=== PATIENT | male | born 1960 | race Caucasian/White ===

== ENCOUNTER 2020-11-28 16:12 | Inpatient (IN) | payer BC ==
[2020-11-28] MEDS ORDERED: LORazepam 1 MG Tab PO ONE (16:40)
[2020-11-28] MEDS ORDERED: Ondansetron 4 MG/2 ML SDV IV PRN (16:55)
[2020-11-28] MEDS ORDERED: Polyethylene Glycol 3350 Powder 17 GM Packet PO PRN (16:55)
[2020-11-28] MEDS ORDERED: Acetaminophen 325 MG Tab PO PRN (16:55)
[2020-11-28] MEDS ORDERED: LORazepam 1 MG Tab PO PRN (17:05)
[2020-11-28] MEDS ORDERED: LORazepam 2 MG/ML SDV IVPUSH PRN (17:06)
--- NOTE | 2020-11-28 17:07 | PCM.HP.2 ---
H&P History of Present Illness - General Date of Service: 11/28/20 Admit Problem/Dx: Admission Diagnosis/Problem Admission Diagnosis/Problem Hypoxia - History of Present Illness Initial Comments - Free Text/Narative: 60-year-old male air transferred from [facility] secondary to worsening hypoxia due to COVID-19 pneumonia. We have minimal documentation available to us at this time. Transferring provider is Donnie Soto PA-C. Date of admission to [facility] November 21, 2020. Patient states he for started getting fatigued and short of breath at the end of October. He was seen on approximately November 17 at the [facility] emergency department and given Regeneron. Patient continued to worsen and was admitted on 21 November. There he was started on remdesivir, dexamethasone, and and azithromycin. He has a history of mild to moderate asthma controlled on Advair. Over the last few days patient has had worsening oxygen saturations. [facility] does not have high flow or BiPAP available to them. Last night he was on a nonrebreather with nasal cannula and oxygen saturations were in the upper seventies to low eighties. This morning saturations were in the low to mid eighties and arrangement was made to transfer the patient to us. I do not have a D-dimer available nor as C-reactive protein. Review of CBC and BMP shows no significant positives. During air transport patient was placed on BiPAP. When he arrived to our facility did not tolerate BiPAP initially was switched to high flow nasal cannula at 60 L and 95% FiO2. Oxygen saturations were in the low nineties to upper eighties. He did state he was feeling much better on high flow. Chest Pain Score (Numeric/FACES): 4 Generalized Pain Score (Numeric/FACES): 5 - Related Data Allergies/Adverse Reactions: Allergies Allergy/AdvReac Type Severity Reaction Status Date / Time No Known Allergies Allergy Verified 11/05/14 22:15 CDT Home Medications: Home Meds . [No Known Home Meds] 11/05/14 [History] Past Medical History Other Gastrointestinal History: heartburn Social & Family History - Tobacco Use Tobacco Use Status *Q: Former Tobacco User Used Tobacco, but Quit: Yes Month/Year Tobacco Last Used: - Caffeine Use Caffeine Use: Reports: None - Recreational Drug Use Recreational Drug Use: No H&P Review of Systems - Review of Systems: Review Of Systems: Comprehensive ROS is negative, except as noted in HPI. Exam - Exam Exam: See Below - Vital Signs Vital Signs: Last Vital Signs Temp 98.0 F 11/28/20 16:23 Pulse 73 11/28/20 16:23 Resp 21 H 11/28/20 16:23 BP 108/76 11/28/20 16:23 Pulse Ox 88 L 11/28/20 16:38 Weight: 178 lb 6.4 oz - Exam Quality Assessment: Supplemental Oxygen (High flow nasal cannula) General: Alert, Oriented, 4 HEENT: Conjunctiva Clear, EACs Clear, Hearing Intact, Mucosa Moist & [place] Neck: Supple, Trachea Midline, 2 Lungs: Crackles (Mid to lower lung tilley bilaterally). No: Normal Respiratory Effort (Increased respiratory rate and effort) Cardiovascular: Regular Rate, Regular Rhythm, Normal S1, Normal S2. No: Systolic Murmur GI/Abdominal Exam: Normal Bowel Sounds, Soft, Non-Tender, No Organomegaly, No Distention, No Abnormal Bruit, No Mass Back Exam: Normal Inspection Extremities: Normal Inspection, Normal Range of Motion, Non-Tender, No Pedal Edema, Normal Capillary Refill Peripheral Pulses: 2+: Posterior Tibial (L), Posterior Tibial (R), Dorsalis Pedis (L), Dorsalis Pedis (R) Skin: Warm, Dry, Intact Neuro Extensive - Mental Status: Alert, Oriented x3, Normal Mood/Affect, Normal Cognition, Memory Intact Neuro Extensive - Motor, Sensory, Reflexes: CN II-XII Intact Psychiatric: Alert, Normal Affect, Normal Mood - Patient Data Result Diagrams: 11/29/20 03:37 11/29/20 03:37 Sepsis Event Note - Evaluation Sepsis Screening Result: No Definite Risk - Focused Exam Vital Signs: Vital Signs Temp Pulse Resp BP Pulse Ox Pulse Ox 11/28/20 16:38 88 L 11/28/20 16:23 98.0 F 73 21 H 108/76 90 L - Problem List (1) Pneumonia due to COVID-19 virus SNOMED Code(s): 066813509724346509 ICD Code: U07.1 - COVID-19; J12.82 - PNEUMONIA DUE TO CORONAVIRUS DISEASE 2019 Status: Acute Current Visit: Yes (2) Respiratory failure with hypoxia SNOMED Code(s): 52904065364099620 ICD Code: J96.91 - RESPIRATORY FAILURE, UNSPECIFIED WITH HYPOXIA Status: Acute Current Visit: Yes (3) Asthma SNOMED Code(s): 321144557 ICD Code: J45.909 - UNSPECIFIED ASTHMA, UNCOMPLICATED Status: Acute Current Visit: Yes Problem List Initiated/Reviewed/Updated: Yes Orders Last 24hrs: Active Orders 24 hr Category Date Time Status Patient Status [ADT] Routine ADT 11/28/20 16:55 Ordered Bedrest Bedside Commode [RC] ASDIRECTED Care 11/28/20 16:55 Ordered Cardiac Monitoring [RC] . DIRECTED Care 11/28/20 16:55 Ordered Cardiac Monitoring [RC] CONTINUOUS Care 11/28/20 16:58 Ordered Nurse Communication: Isolation [RC] ASDIRECTED Care 11/28/20 16:57 Ordered Oxygen Therapy [RC] PRN Care 11/28/20 16:55 Ordered Positioning, Patient [RC] ASDIRECTED Care 11/28/20 17:00 Ordered Pulse Oximetry [RC] CONTINUOUS Care 11/28/20 16:58 Ordered RT Aerosol Therapy [RC] ASDIRECTED Care 11/28/20 17:02 Ordered RT Incentive Spirometry [RC] ASDIRECTED Care 11/28/20 16:55 Ordered RT Post Treatment Assessment [RC] Click to Edit Care 11/28/20 17:02 Ordered RT Pre-Treatment Assessment [RC] Click to Edit Care 11/28/20 17:02 Ordered VTE/DVT Education [RC] PER UNIT ROUTINE Care 11/28/20 16:55 Ordered Vital Signs [RC] Q4H Care 11/28/20 16:55 Ordered Respiratory Care Assess and Treatment [CONS] Routine Cons 11/28/20 16:55 Ordered Regular Diet [DIET] Diet 11/28/20 Dinner Ordered Chest 1V Frontal [CR] Stat Exams 11/28/20 17:01 Ordered C-REACTIVE PROTEIN [CHEM] AM Lab 11/29/20 05:11 Ordered C-REACTIVE PROTEIN [CHEM] AM Lab 11/30/20 05:11 Ordered C-REACTIVE PROTEIN [CHEM] AM Lab 12/01/20 05:11 Ordered C-REACTIVE PROTEIN [CHEM] AM Lab 12/02/20 05:11 Ordered C-REACTIVE PROTEIN [CHEM] Stat Lab 11/28/20 16:55 Ordered CBC WITH AUTO DIFF [HEME] AM Lab 11/29/20 05:11 Ordered CBC WITH AUTO DIFF [HEME] AM Lab 11/30/20 05:11 Ordered CBC WITH AUTO DIFF [HEME] AM Lab 12/01/20 05:11 Ordered CBC WITH AUTO DIFF [HEME] AM Lab 12/02/20 05:11 Ordered CBC WITH AUTO DIFF [HEME] Stat Lab 11/28/20 17:00 Ordered CMP [COMPREHENSIVE METABOLIC PN,CMP] [CHEM] AM Lab 11/29/20 05:11 Ordered CMP [COMPREHENSIVE METABOLIC PN,CMP] [CHEM] AM Lab 11/30/20 05:11 Ordered CMP [COMPREHENSIVE METABOLIC PN,CMP] [CHEM] AM Lab 12/01/20 05:11 Ordered CMP [COMPREHENSIVE METABOLIC PN,CMP] [CHEM] AM Lab 12/02/20 05:11 Ordered D-DIMER QUANTITATIVE [COAG] Stat Lab 11/28/20 16:55 Ordered FERRITIN [CHEM] Routine Lab 11/28/20 16:55 Ordered INR,PT,PROTHROMBIN TIME [COAG] Routine Lab 11/28/20 17:01 Ordered LACTIC ACID [CHEM] Stat Lab 11/28/20 16:55 Ordered MAGNESIUM [CHEM] AM Lab 11/29/20 05:11 Ordered MAGNESIUM [CHEM] AM Lab 11/30/20 05:11 Ordered MAGNESIUM [CHEM] AM Lab 12/01/20 05:11 Ordered MAGNESIUM [CHEM] AM Lab 12/02/20 05:11 Ordered PHOSPHORUS [CHEM] AM Lab 11/29/20 05:11 Ordered PHOSPHORUS [CHEM] AM Lab 11/30/20 05:11 Ordered PHOSPHORUS [CHEM] AM Lab 12/01/20 05:11 Ordered PHOSPHORUS [CHEM] AM Lab 12/02/20 05:11 Ordered PROCALCITONIN [REF] Stat Lab 11/28/20 16:55 Ordered PTT,PARTIAL THROMBOPLSTIN TIME [COAG] Routine Lab 11/28/20 16:55 Ordered Acetaminophen [TylenoL] Med 11/28/20 16:55 Ordered 650 mg PO Q4H PRN Albuterol [Proventil HFA] Med 11/28/20 17:01 Ordered See Dose Instructions INH Q2H PRN Albuterol/Ipratropium [DuoNeb 3.0-0.5 MG/3 ML] Med 11/28/20 16:55 Ordered 3 ml NEB Q4H PRN Enoxaparin [Lovenox] Med 11/29/20 09:00 Ordered 40 mg SUBCUT DAILY LORazepam [Ativan] Med 11/28/20 17:06 Ordered 1 mg IVPUSH Q2H PRN LORazepam [Ativan] Med 11/28/20 17:05 Ordered 1 mg PO Q4H PRN Ondansetron [Zofran] Med 11/28/20 16:55 Ordered 4 mg IV Q6H PRN dexAMETHasone Med 11/29/20 09:00 Ordered 6 mg PO DAILY polyethylene glycoL 3350 [MiraLAX] Med 11/28/20 16:55 Ordered 17 gm PO DAILY PRN Isolation [COMM] Stat Oth 11/28/20 16:55 Ordered RT Acapella [RESPCARE] Routine Oth 11/28/20 16:55 Ordered Resuscitation Status Routine Resus Stat 11/28/20 16:55 Ordered Medication Orders Acetaminophen (Acetaminophen 325 Mg Tab) 650 mg PO Q4H PRN PRN Reason: Pain (Mild 1-3)/fever Albuterol (Albuterol 6.7 Gm Inhaler) 0 gm INH Q2H PRN PRN Reason: Shortness of Breath Albuterol/Ipratropium (Albuterol/Ipratropium 3.0-0.5 Mg/3 Ml Neb Soln) 3 ml NEB Q4H PRN PRN Reason: Shortness Of Breath/wheezing Dexamethasone (Dexamethasone 4 Mg Tab) 6 mg PO DAILY DADA Stop: 12/02/20 09:01 Enoxaparin Sodium (Enoxaparin 40 Mg/0.4 Ml Syringe) 40 mg SUBCUT DAILY DADA Lorazepam (Lorazepam 1 Mg Tab) 1 mg PO Q4H PRN PRN Reason: Anxiety Ondansetron HCl (Ondansetron 4 Mg/2 Ml Sdv) 4 mg IV Q6H PRN PRN Reason: Nausea/Vomiting Polyethylene Glycol (Polyethylene Glycol 3350 Powder 17 Gm Packet) 17 gm PO DAILY PRN PRN Reason: Constipation Assessment/Plan Comment:: 60-year-old male with history of asthma transferred from [facility] with COVID-19 pneumonia and hypoxia COVID-19 pneumonia Respiratory failure * Admitted to [facility] on November 21, 2020 * Received Regeneron on or around November 17, 2020 * Worsening condition oxygenation over the last few days increasing need for high flow nasal cannula/noninvasive ventilation * Uses albuterol and Advair for asthma generally in the fall harvesting season * Has received 6 days of remdesivir and dexamethasone * Has not received Actemra or baricitinib * Current blood work pending Plan * Admit to ICU with strict isolation * FiO2 to keep SPO2 between 86 to 94%. Wean as tolerated. Currently on high flow nasal cannula 60 L and 95% FiO2 * Stop remdesivir since there is very little benefit after 5 days * Continue dexamethasone 6 mg p.o. for total of 10 days * Counseled the patient regards to Actemra and gave him the EUA handout. He will consider this overnight. * Get CBC, CMP, mag, Phos, CRP, D-dimer, procalcitonin, blood cultures, lactic acid * Chest x-ray * DuoNeb every 2 hours as needed * Albuterol MDI 2 every 2 hours as needed * I-S and Acapella * DC azithromycin * Pepcid 20 mg twice daily * Monitor daily labs * VTE prophylaxis with Lovenox * CODE STATUS: Full code 11/28/2020 2100 hrs. Elevated D-dimer was called to me and a CT angiogram was ordered. CT angiogram did show scattered subsegmental pulmonary emboli within the left lower lung. Small bilateral pleural effusions with diffuse increased density throughout both sides of the chest. Also, lactic acid returned elevated from the 1730 hrs. draw at 2.7 and repeat at 2032 was elevated at 3.0. Initially elevation in lactic acid was felt to be secondary to hypoxemia causing endorgan lactic acidosis. Also, a fluid bolus of 250 mL/h x 2 was started then LR ran at 125 mL/h until lactic acid was less than 2.0. Lactic acid 0 337 on 11/29/2020 was 1.1. Also of note, albumin was 1.7 on admission which places him at high risk of a poor outcome. - Mortality Measure Prognosis:: Good
--- NOTE | 2020-11-28 18:07 | CR ---
Chest: Portable view of the chest was obtained. Comparison: No prior chest imaging is available. Heart size and mediastinum are within normal limits for portable technique. Diffuse increased density is seen throughout both sides of the chest. No discrete pleural effusions are seen. Bony structures show nothing acute. Impression: 1. Diffuse increased density throughout both sides of the chest. Please correlate if patient has any symptoms to suggest prominent Covid pneumonia. If Covid test is negative, differential is otherwise fairly extensive. Diagnostic code #3
[2020-11-28] MEDS ORDERED: Lactated Ringers 500 ML IV ONE (18:36)
[2020-11-28] MEDS ORDERED: Iopamidol 755 Mg/ML 100 ML Bottle IVPUSH ONE (20:01)
--- NOTE | 2020-11-28 20:13 | CT ---
CT chest Technique: Multiple axial sections through the chest were obtained. Intravenous contrast was utilized. Study has been performed as a pulmonary angiogram protocol. Comparison: Prior chest x-ray performed earlier on the same day (5:16 PM). Findings: Filling defects are seen within the subsegmental branches within the left lower lung compatible with pulmonary emboli. No additional pulmonary emboli are seen. Small bilateral pleural effusions are noted. Thoracic aorta shows mild ectasia of the ascending aorta. Scattered lymph nodes are seen within the mediastinum which are felt to be within normal limits. No axillary adenopathy is seen. Lung window settings show diffuse increased density throughout both sides of the chest which includes areas of consolidation as well as diffuse groundglass appearance. Bone window settings were reviewed which show mild degenerative change within the thoracic spine. No acute osseous abnormality is seen. Impression: 1. Scattered subsegmental pulmonary emboli within the left lower lung. 2. Small bilateral pleural effusions with diffuse increased density throughout both sides of the chest. 3. Other findings believed to be nonacute as described above. Diagnostic code #3
[2020-11-28] MEDS ORDERED: Sodium Chloride 0.9% 100 ML IV SCH (20:15)
[2020-11-28] MEDS: Famotidine 20 MG Tab PO SCH (20:29)
[2020-11-28] MEDS ORDERED: Piperacillin/Tazobactam 4.5 GM in Sodium Chloride 0.9% 100 ML IV ONE (21:12)
[2020-11-28] MEDS ORDERED: Lactated Ringers 1,000 ML IV SCH (21:15)
[2020-11-28] MEDS: Albuterol/Ipratropium 3.0-0.5 MG/3 ML Neb Soln NEB PRN (21:22)
[2020-11-28] MEDS: Enoxaparin 80 MG/0.8 ML Syringe SUBCUT SCH (21:42)
[2020-11-28] MEDS: Benzonatate 100 MG Cap PO PRN (21:55)
[2020-11-28] MEDS: Acetaminophen/Codeine 300-30 MG Tab PO PRN (23:26)
[2020-11-29] MEDS: Piperacillin/Tazobactam 4.5 GM in Sodium Chloride 0.9% 100 ML IV SCH ×3 (05:15→21:39)
[2020-11-29] MEDS: Albuterol 6.7 GM Inhaler INH PRN ×2 (07:55→15:56)
[2020-11-29] MEDS: Dexamethasone 4 MG Tab PO SCH (08:16)
[2020-11-29] MEDS: Famotidine 20 MG Tab PO SCH ×2 (08:16→20:22)
[2020-11-29] MEDS: Acetaminophen/Codeine 300-30 MG Tab PO PRN ×2 (08:34→12:30)
[2020-11-29] MEDS: Enoxaparin 80 MG/0.8 ML Syringe SUBCUT SCH ×3 (08:34→21:39)
[2020-11-29] MEDS ORDERED: Enoxaparin 40 MG/0.4 ML Syringe SUBCUT SCH (09:00)
[2020-11-29] MEDS ORDERED: SODIUM CHLORIDE 0.9% IV ONE (09:00)
[2020-11-29] MEDS ORDERED: TOCILIZUMAB IV ONE (09:00)
[2020-11-29] MEDS: Acetylcysteine 20% 200 MG/ML 4 ML Nebulizer Soln SDV NEB PRN (13:03)
--- NOTE | 2020-11-29 13:23 | PCM.PN ---
- General Info Date of Service: 11/29/20 Admission Dx/Problem (Free Text): Admission Diagnosis/Problem Admission Diagnosis/Problem Hypoxia Subjective Update: 60-year-old male, nonvaccinated, transferred from [facility] with COVID-19 pneumonia. D-dimer above [address] angiogram of the chest. CT angiogram of the chest showed scattered subsegmental pulmonary emboli within the left lower lung. Also, small bilateral pleural effusions with diffuse increased density throughout both sides of the chest. Patient failed high flow nasal cannula this morning and was started on BiPAP 18/12 at 100%. Slowly this did increase his oxygen saturations from the 70s back into the low 90s. I discussed with him and his daughter with his present on the phone the severity of his illness. They understand that he has a very high risk of being intubated. Functional Status: Reports: Pain Controlled - Review of Systems General: Reports: Fatigue Pulmonary: Reports: Shortness of Breath, Cough Cardiovascular: Reports: No Symptoms Gastrointestinal: Reports: No Symptoms - Patient Data Vitals - Most Recent: Last Vital Signs Temp 96.9 F 11/29/20 12:00 Pulse 53 L 11/29/20 12:00 Resp 20 11/29/20 12:00 BP 111/71 11/29/20 12:00 Pulse Ox 96 11/29/20 13:04 Weight - Most Recent: 171 lb 6.4 oz I&O - Last 24 Hours: Intake & Output 11/28/20 11/29/20 11/29/20 22:59 06:59 14:59 Intake Total 2020 1432 Output Total 1175 1250 900 Balance 845 182 -900 Lab Results Last 24 Hours: Laboratory Results - last 24 hr 11/28/20 11/28/20 11/28/20 Range/Units 17:30 17:30 17:30 WBC (4.23-9.07) K/mm3 RBC (4.63-6.08) M/mm3 Hgb (13.7-17.5) gm/dl Hct (40.1-51.0) % MCV (79.0-92.2) fl MCH (25.7-32.2) pg MCHC (32.2-35.5) g/dl RDW Std Deviation (35.1-43.9) fL Plt Count (163-337) K/mm3 MPV (9.4-12.3) fl Neut % (Auto) (34.0-67.9) % Lymph % (Auto) (21.8-53.1) % [place] % (Auto) (5.3-12.2) % Eos % (Auto) (0.8-7.0) Baso % (Auto) (0.1-1.2) % Neut # (Auto) (1.78-5.38) K/mm3 Lymph # (Auto) (1.32-3.57) K/mm3 [place] # (Auto) (0.30-0.82) K/mm3 Eos # (Auto) (0.04-0.54) K/mm3 Baso # (Auto) (0.01-0.08) K/mm3 Manual Slide Review PT (9.7-12.0) SECONDS INR APTT (21.7-31.4) SECONDS D-Dimer, Quantitative 8.41 H (0.19-0.50) mg/L Sodium (136-145) mEq/L Potassium (3.5-5.1) mEq/L Chloride (98-107) mEq/L Carbon Dioxide (21-32) mEq/L Anion Gap (5-15) BUN (7-18) mg/dL Creatinine (0.7-1.3) mg/dL Est Cr Clr Drug Dosing mL/min Estimated GFR (MDRD) (>60) mL/min BUN/Creatinine Ratio (14-18) Glucose (70-99) mg/dL Lactic Acid 2.7 H* (0.4-2.0) mmol/L Calcium (8.5-10.1) mg/dL Phosphorus (2.6-4.7) mg/dL Magnesium (1.8-2.4) mg/dL Ferritin 2439 H (26-388) ng/ml Total Bilirubin (0.2-1.0) mg/dL AST (15-37) U/L ALT (16-63) U/L Alkaline Phosphatase (46-116) U/L C-Reactive Protein (<1.0) mg/dL NT-Pro-B Natriuret Pep (0-125) pg/mL Total Protein (6.4-8.2) g/dl Albumin (3.4-5.0) g/dl Globulin gm/dL Albumin/Globulin Ratio (1-2) Procalcitonin ng/mL 11/28/20 11/28/20 11/28/20 Range/Units 17:30 17:30 17:30 WBC 14.26 H (4.23-9.07) K/mm3 RBC 4.35 L (4.63-6.08) M/mm3 Hgb 13.3 L (13.7-17.5) gm/dl Hct 40.0 L (40.1-51.0) % MCV 92.0 (79.0-92.2) fl MCH 30.6 (25.7-32.2) pg MCHC 33.3 (32.2-35.5) g/dl RDW Std Deviation 42.3 (35.1-43.9) fL Plt Count 272 (163-337) K/mm3 MPV 10.3 (9.4-12.3) fl Neut % (Auto) 92.4 H (34.0-67.9) % Lymph % (Auto) 3.2 L (21.8-53.1) % [place] % (Auto) 3.6 L (5.3-12.2) % Eos % (Auto) 0 L (0.8-7.0) Baso % (Auto) 0.1 (0.1-1.2) % Neut # (Auto) 13.17 H (1.78-5.38) K/mm3 Lymph # (Auto) 0.45 L (1.32-3.57) K/mm3 [place] # (Auto) 0.52 (0.30-0.82) K/mm3 Eos # (Auto) 0.00 L (0.04-0.54) K/mm3 Baso # (Auto) 0.02 (0.01-0.08) K/mm3 Manual Slide Review Abnormal smear PT (9.7-12.0) SECONDS INR APTT (21.7-31.4) SECONDS D-Dimer, Quantitative (0.19-0.50) mg/L Sodium (136-145) mEq/L Potassium (3.5-5.1) mEq/L Chloride (98-107) mEq/L Carbon Dioxide (21-32) mEq/L Anion Gap (5-15) BUN (7-18) mg/dL Creatinine (0.7-1.3) mg/dL Est Cr Clr Drug Dosing mL/min Estimated GFR (MDRD) (>60) mL/min BUN/Creatinine Ratio (14-18) Glucose (70-99) mg/dL Lactic Acid (0.4-2.0) mmol/L Calcium (8.5-10.1) mg/dL Phosphorus (2.6-4.7) mg/dL Magnesium (1.8-2.4) mg/dL Ferritin (26-388) ng/ml Total Bilirubin (0.2-1.0) mg/dL AST (15-37) U/L ALT (16-63) U/L Alkaline Phosphatase (46-116) U/L C-Reactive Protein 19.4 H* (<1.0) mg/dL NT-Pro-B Natriuret Pep (0-125) pg/mL Total Protein (6.4-8.2) g/dl Albumin (3.4-5.0) g/dl Globulin gm/dL Albumin/Globulin Ratio (1-2) Procalcitonin 0.36 H ng/mL 11/28/20 11/28/20 11/28/20 Range/Units 17:30 17:30 20:33 WBC (4.23-9.07) K/mm3 RBC (4.63-6.08) M/mm3 Hgb (13.7-17.5) gm/dl Hct (40.1-51.0) % MCV (79.0-92.2) fl MCH (25.7-32.2) pg MCHC (32.2-35.5) g/dl RDW Std Deviation (35.1-43.9) fL Plt Count (163-337) K/mm3 MPV (9.4-12.3) fl Neut % (Auto) (34.0-67.9) % Lymph % (Auto) (21.8-53.1) % [place] % (Auto) (5.3-12.2) % Eos % (Auto) (0.8-7.0) Baso % (Auto) (0.1-1.2) % Neut # (Auto) (1.78-5.38) K/mm3 Lymph # (Auto) (1.32-3.57) K/mm3 [place] # (Auto) (0.30-0.82) K/mm3 Eos # (Auto) (0.04-0.54) K/mm3 Baso # (Auto) (0.01-0.08) K/mm3 Manual Slide Review PT 12.2 H (9.7-12.0) SECONDS INR 1.10 APTT 23.4 (21.7-31.4) SECONDS D-Dimer, Quantitative (0.19-0.50) mg/L Sodium 134 L (136-145) mEq/L Potassium 5.1 (3.5-5.1) mEq/L Chloride 97 L (98-107) mEq/L Carbon Dioxide 28 (21-32) mEq/L Anion Gap 14.1 (5-15) BUN 22 H (7-18) mg/dL Creatinine 1.1 (0.7-1.3) mg/dL Est Cr Clr Drug Dosing 72.31 mL/min Estimated GFR (MDRD) > 60 (>60) mL/min BUN/Creatinine Ratio 20.0 H (14-18) Glucose 112 H (70-99) mg/dL Lactic Acid 3.0 H* (0.4-2.0) mmol/L Calcium 8.4 L (8.5-10.1) mg/dL Phosphorus (2.6-4.7) mg/dL Magnesium (1.8-2.4) mg/dL Ferritin (26-388) ng/ml Total Bilirubin 0.6 (0.2-1.0) mg/dL AST 36 (15-37) U/L ALT 38 (16-63) U/L Alkaline Phosphatase 116 (46-116) U/L C-Reactive Protein (<1.0) mg/dL NT-Pro-B Natriuret Pep (0-125) pg/mL Total Protein 5.9 L (6.4-8.2) g/dl Albumin 1.7 L (3.4-5.0) g/dl Globulin 4.2 gm/dL Albumin/Globulin Ratio 0.4 L (1-2) Procalcitonin ng/mL 11/29/20 11/29/20 11/29/20 Range/Units 00:30 03:37 03:37 WBC 15.06 H (4.23-9.07) K/mm3 RBC 4.11 L (4.63-6.08) M/mm3 Hgb 12.6 L (13.7-17.5) gm/dl Hct 37.3 L (40.1-51.0) % MCV 90.8 (79.0-92.2) fl MCH 30.7 (25.7-32.2) pg MCHC 33.8 (32.2-35.5) g/dl RDW Std Deviation 41.8 (35.1-43.9) fL Plt Count 245 (163-337) K/mm3 MPV 10.3 (9.4-12.3) fl Neut % (Auto) 91.2 H (34.0-67.9) % Lymph % (Auto) 2.9 L (21.8-53.1) % [place] % (Auto) 5.0 L (5.3-12.2) % Eos % (Auto) 0.1 L (0.8-7.0) Baso % (Auto) 0.1 (0.1-1.2) % Neut # (Auto) 13.73 H (1.78-5.38) K/mm3 Lymph # (Auto) 0.44 L (1.32-3.57) K/mm3 [place] # (Auto) 0.75 (0.30-0.82) K/mm3 Eos # (Auto) 0.01 L (0.04-0.54) K/mm3 Baso # (Auto) 0.02 (0.01-0.08) K/mm3 Manual Slide Review Abnormal smear PT (9.7-12.0) SECONDS INR APTT (21.7-31.4) SECONDS D-Dimer, Quantitative (0.19-0.50) mg/L Sodium 133 L (136-145) mEq/L Potassium 4.8 (3.5-5.1) mEq/L Chloride 101 (98-107) mEq/L Carbon Dioxide 27 (21-32) mEq/L Anion Gap 9.8 (5-15) BUN 21 H (7-18) mg/dL Creatinine 0.9 (0.7-1.3) mg/dL Est Cr Clr Drug Dosing 88.38 mL/min Estimated GFR (MDRD) > 60 (>60) mL/min BUN/Creatinine Ratio 23.3 H (14-18) Glucose 103 H (70-99) mg/dL Lactic Acid 2.7 H* (0.4-2.0) mmol/L Calcium 8.0 L (8.5-10.1) mg/dL Phosphorus 3.7 (2.6-4.7) mg/dL Magnesium 2.0 (1.8-2.4) mg/dL Ferritin (26-388) ng/ml Total Bilirubin 0.7 (0.2-1.0) mg/dL AST 32 (15-37) U/L ALT 34 (16-63) U/L Alkaline Phosphatase 111 (46-116) U/L C-Reactive Protein 19.1 H* (<1.0) mg/dL NT-Pro-B Natriuret Pep (0-125) pg/mL Total Protein 5.2 L (6.4-8.2) g/dl Albumin 1.5 L (3.4-5.0) g/dl Globulin 3.7 gm/dL Albumin/Globulin Ratio 0.4 L (1-2) Procalcitonin ng/mL 11/29/20 11/29/20 Range/Units 03:37 10:10 WBC (4.23-9.07) K/mm3 RBC (4.63-6.08) M/mm3 Hgb (13.7-17.5) gm/dl Hct (40.1-51.0) % MCV (79.0-92.2) fl MCH (25.7-32.2) pg MCHC (32.2-35.5) g/dl RDW Std Deviation (35.1-43.9) fL Plt Count (163-337) K/mm3 MPV (9.4-12.3) fl Neut % (Auto) (34.0-67.9) % Lymph % (Auto) (21.8-53.1) % [place] % (Auto) (5.3-12.2) % Eos % (Auto) (0.8-7.0) Baso % (Auto) (0.1-1.2) % Neut # (Auto) (1.78-5.38) K/mm3 Lymph # (Auto) (1.32-3.57) K/mm3 [place] # (Auto) (0.30-0.82) K/mm3 Eos # (Auto) (0.04-0.54) K/mm3 Baso # (Auto) (0.01-0.08) K/mm3 Manual Slide Review PT (9.7-12.0) SECONDS INR APTT (21.7-31.4) SECONDS D-Dimer, Quantitative (0.19-0.50) mg/L Sodium (136-145) mEq/L Potassium (3.5-5.1) mEq/L Chloride (98-107) mEq/L Carbon Dioxide (21-32) mEq/L Anion Gap (5-15) BUN (7-18) mg/dL Creatinine (0.7-1.3) mg/dL Est Cr Clr Drug Dosing mL/min Estimated GFR (MDRD) (>60) mL/min BUN/Creatinine Ratio (14-18) Glucose (70-99) mg/dL Lactic Acid 1.1 (0.4-2.0) mmol/L Calcium (8.5-10.1) mg/dL Phosphorus (2.6-4.7) mg/dL Magnesium (1.8-2.4) mg/dL Ferritin (26-388) ng/ml Total Bilirubin (0.2-1.0) mg/dL AST (15-37) U/L ALT (16-63) U/L Alkaline Phosphatase (46-116) U/L C-Reactive Protein (<1.0) mg/dL NT-Pro-B Natriuret Pep 199 H (0-125) pg/mL Total Protein (6.4-8.2) g/dl Albumin (3.4-5.0) g/dl Globulin gm/dL Albumin/Globulin Ratio (1-2) Procalcitonin ng/mL Med Orders - Current: Current Medications Acetaminophen (Acetaminophen 325 Mg Tab) 650 mg PO Q4H PRN PRN Reason: Pain (Mild 1-3)/fever Acetaminophen/Codeine Phosphate (Acetaminophen/Codeine 300-30 Mg Tab) 2 tab PO Q4H PRN PRN Reason: Chest Pain Last Admin: 11/29/20 12:30 Dose: 2 tab Documented by: Acetylcysteine (Acetylcysteine 20% 200 Mg/Ml 4 Ml Nebulizer Soln Sdv) 800 mg NE B QIDRT PRN PRN Reason: Shortness of Breath Last Admin: 11/29/20 13:03 Dose: 800 mg Documented by: Albuterol (Albuterol 6.7 Gm Inhaler) 0 gm INH Q2H PRN PRN Reason: Shortness of Breath Last Admin: 11/29/20 07:55 Dose: 2 inhalation Documented by: Albuterol/Ipratropium (Albuterol/Ipratropium 3.0-0.5 Mg/3 Ml Neb Soln) 3 ml NEB Q4H PRN PRN Reason: Shortness Of Breath/wheezing Last Admin: 11/28/20 21:22 Dose: 3 ml Documented by: Benzonatate (Benzonatate 100 Mg Cap) 200 mg PO Q8H PRN PRN Reason: Cough Last Admin: 11/28/20 21:55 Dose: 200 mg Documented by: Dexamethasone (Dexamethasone 4 Mg Tab) 6 mg PO DAILY [facility] Stop: 12/02/20 09:01 Last Admin: 11/29/20 08:16 Dose: 6 mg Documented by: Enoxaparin Sodium (Enoxaparin 80 Mg/0.8 Ml Syringe) 80 mg SUBCUT Q12H [facility] Last Admin: 11/29/20 08:34 Dose: 80 mg Documented by: Famotidine (Famotidine 20 Mg Tab) 20 mg PO BID [facility] Last Admin: 11/29/20 08:16 Dose: 20 mg Documented by: Piperacillin Sod/Tazobactam (Sod 4.5 gm/ Sodium Chloride) 100 mls @ 25 mls/hr IV Q8HR [facility] Last Admin: 11/29/20 05:15 Dose: 25 mls/hr Documented by: Lorazepam (Lorazepam 1 Mg Tab) 1 mg PO Q4H PRN PRN Reason: Anxiety Last Admin: 11/28/20 21:55 Dose: 1 mg Documented by: Lorazepam (Lorazepam 2 Mg/Ml Sdv) 1 mg IVPUSH Q2H PRN PRN Reason: Anxiety Ondansetron HCl (Ondansetron 4 Mg/2 Ml Sdv) 4 mg IV Q6H PRN PRN Reason: Nausea/Vomiting Polyethylene Glycol (Polyethylene Glycol 3350 Powder 17 Gm Packet) 17 gm PO DAILY PRN PRN Reason: Constipation Discontinued Medications Enoxaparin Sodium (Enoxaparin 40 Mg/0.4 Ml Syringe) 40 mg SUBCUT DAILY [facility] Lactated Ringer's (Ringers, Lactated) 500 mls @ 250 mls/hr IV .BOLUS ONE Stop: 11/28/20 20:35 Last Admin: 11/28/20 18:45 Dose: 250 mls/hr Documented by: Sodium Chloride (Normal Saline) 100 mls @ 60 mls/min IV ASDIRECTED DADA Last Admin: 11/28/20 20:03 Dose: 60 mls/min Documented by: Piperacillin Sod/Tazobactam (Sod 4.5 gm/ Sodium Chloride) 100 mls @ 200 mls/hr IV ONETIME ONE Stop: 11/28/20 21:41 Last Admin: 11/28/20 21:43 Dose: 200 mls/hr Documented by: Lactated Ringer's (Ringers, Lactated) 1,000 mls @ 125 mls/hr IV ASDIRECTED [facility] Last Admin: 11/28/20 21:52 Dose: 125 mls/hr Documented by: Tocilizumab 200 mg/Tocilizumab 400 mg/ Sodium Chloride 100 mls @ 100 mls/hr IV ONETIME ONE Stop: 11/29/20 09:59 Last Admin: 11/29/20 08:42 Dose: 100 mls/hr Documented by: Iopamidol (Iopamidol 755 Mg/Ml 100 Ml Bottle) 100 ml IVPUSH ONETIME ONE Stop: 11/28/20 20:02 Last Admin: 11/28/20 20:02 Dose: 100 ml Documented by: Lorazepam (Lorazepam 1 Mg Tab) 1 mg PO ONETIME ONE Stop: 11/28/20 16:41 Last Admin: 11/28/20 17:10 Dose: 1 mg Documented by: - Exam Quality Assessment: Supplemental Oxygen (BiPAP) General: Alert, Oriented (Slightly confused after his hypoxic episode this morni ng.) HEENT: Pupils Equal, Mucous Membr. Moist/Se[place] Neck: Supple Lungs: Crackles (Throughout both lung tilley). No: Normal Respiratory Effort (Increased rate and effort) Cardiovascular: Regular Rate, Regular Rhythm GI/Abdominal Exam: Normal Bowel Sounds, Soft, Non-Tender, No Distention Extremities: Normal Inspection, No Pedal Edema, Normal Capillary Refill Skin: Warm, Dry, Intact Psy/Mental Status: Alert - Patient Data Lab Results Last 24 hrs: Laboratory Results - last 24 hr 11/28/20 11/28/20 11/28/20 Range/Units 17:30 17:30 17:30 WBC (4.23-9.07) K/mm3 RBC (4.63-6.08) M/mm3 Hgb (13.7-17.5) gm/dl Hct (40.1-51.0) % MCV (79.0-92.2) fl MCH (25.7-32.2) pg MCHC (32.2-35.5) g/dl RDW Std Deviation (35.1-43.9) fL Plt Count (163-337) K/mm3 MPV (9.4-12.3) fl Neut % (Auto) (34.0-67.9) % Lymph % (Auto) (21.8-53.1) % [place] % (Auto) (5.3-12.2) % Eos % (Auto) (0.8-7.0) Baso % (Auto) (0.1-1.2) % Neut # (Auto) (1.78-5.38) K/mm3 Lymph # (Auto) (1.32-3.57) K/mm3 [place] # (Auto) (0.30-0.82) K/mm3 Eos # (Auto) (0.04-0.54) K/mm3 Baso # (Auto) (0.01-0.08) K/mm3 Manual Slide Review PT (9.7-12.0) SECONDS INR APTT (21.7-31.4) SECONDS D-Dimer, Quantitative 8.41 H (0.19-0.50) mg/L Sodium (136-145) mEq/L Potassium (3.5-5.1) mEq/L Chloride (98-107) mEq/L Carbon Dioxide (21-32) mEq/L Anion Gap (5-15) BUN (7-18) mg/dL Creatinine (0.7-1.3) mg/dL Est Cr Clr Drug Dosing mL/min Estimated GFR (MDRD) (>60) mL/min BUN/Creatinine Ratio (14-18) Glucose (70-99) mg/dL Lactic Acid 2.7 H* (0.4-2.0) mmol/L Calcium (8.5-10.1) mg/dL Phosphorus (2.6-4.7) mg/dL Magnesium (1.8-2.4) mg/dL Ferritin 2439 H (26-388) ng/ml Total Bilirubin (0.2-1.0) mg/dL AST (15-37) U/L ALT (16-63) U/L Alkaline Phosphatase (46-116) U/L C-Reactive Protein (<1.0) mg/dL NT-Pro-B Natriuret Pep (0-125) pg/mL Total Protein (6.4-8.2) g/dl Albumin (3.4-5.0) g/dl Globulin gm/dL Albumin/Globulin Ratio (1-2) Procalcitonin ng/mL 11/28/20 11/28/20 11/28/20 Range/Units 17:30 17:30 17:30 WBC 14.26 H (4.23-9.07) K/mm3 RBC 4.35 L (4.63-6.08) M/mm3 Hgb 13.3 L (13.7-17.5) gm/dl Hct 40.0 L (40.1-51.0) % MCV 92.0 (79.0-92.2) fl MCH 30.6 (25.7-32.2) pg MCHC 33.3 (32.2-35.5) g/dl RDW Std Deviation 42.3 (35.1-43.9) fL Plt Count 272 (163-337) K/mm3 MPV 10.3 (9.4-12.3) fl Neut % (Auto) 92.4 H (34.0-67.9) % Lymph % (Auto) 3.2 L (21.8-53.1) % [place] % (Auto) 3.6 L (5.3-12.2) % Eos % (Auto) 0 L (0.8-7.0) Baso % (Auto) 0.1 (0.1-1.2) % Neut # (Auto) 13.17 H (1.78-5.38) K/mm3 Lymph # (Auto) 0.45 L (1.32-3.57) K/mm3 [place] # (Auto) 0.52 (0.30-0.82) K/mm3 Eos # (Auto) 0.00 L (0.04-0.54) K/mm3 Baso # (Auto) 0.02 (0.01-0.08) K/mm3 Manual Slide Review Abnormal smear PT (9.7-12.0) SECONDS INR APTT (21.7-31.4) SECONDS D-Dimer, Quantitative (0.19-0.50) mg/L Sodium (136-145) mEq/L Potassium (3.5-5.1) mEq/L Chloride (98-107) mEq/L Carbon Dioxide (21-32) mEq/L Anion Gap (5-15) BUN (7-18) mg/dL Creatinine (0.7-1.3) mg/dL Est Cr Clr Drug Dosing mL/min Estimated GFR (MDRD) (>60) mL/min BUN/Creatinine Ratio (14-18) Glucose (70-99) mg/dL Lactic Acid (0.4-2.0) mmol/L Calcium (8.5-10.1) mg/dL Phosphorus (2.6-4.7) mg/dL Magnesium (1.8-2.4) mg/dL Ferritin (26-388) ng/ml Total Bilirubin (0.2-1.0) mg/dL AST (15-37) U/L ALT (16-63) U/L Alkaline Phosphatase (46-116) U/L C-Reactive Protein 19.4 H* (<1.0) mg/dL NT-Pro-B Natriuret Pep (0-125) pg/mL Total Protein (6.4-8.2) g/dl Albumin (3.4-5.0) g/dl Globulin gm/dL Albumin/Globulin Ratio (1-2) Procalcitonin 0.36 H ng/mL 11/28/20 11/28/20 11/28/20 Range/Units 17:30 17:30 20:33 WBC (4.23-9.07) K/mm3 RBC (4.63-6.08) M/mm3 Hgb (13.7-17.5) gm/dl Hct (40.1-51.0) % MCV (79.0-92.2) fl MCH (25.7-32.2) pg MCHC (32.2-35.5) g/dl RDW Std Deviation (35.1-43.9) fL Plt Count (163-337) K/mm3 MPV (9.4-12.3) fl Neut % (Auto) (34.0-67.9) % Lymph % (Auto) (21.8-53.1) % [place] % (Auto) (5.3-12.2) % Eos % (Auto) (0.8-7.0) Baso % (Auto) (0.1-1.2) % Neut # (Auto) (1.78-5.38) K/mm3 Lymph # (Auto) (1.32-3.57) K/mm3 [place] # (Auto) (0.30-0.82) K/mm3 Eos # (Auto) (0.04-0.54) K/mm3 Baso # (Auto) (0.01-0.08) K/mm3 Manual Slide Review PT 12.2 H (9.7-12.0) SECONDS INR 1.10 APTT 23.4 (21.7-31.4) SECONDS D-Dimer, Quantitative (0.19-0.50) mg/L Sodium 134 L (136-145) mEq/L Potassium 5.1 (3.5-5.1) mEq/L Chloride 97 L (98-107) mEq/L Carbon Dioxide 28 (21-32) mEq/L Anion Gap 14.1 (5-15) BUN 22 H (7-18) mg/dL Creatinine 1.1 (0.7-1.3) mg/dL Est Cr Clr Drug Dosing 72.31 mL/min Estimated GFR (MDRD) > 60 (>60) mL/min BUN/Creatinine Ratio 20.0 H (14-18) Glucose 112 H (70-99) mg/dL Lactic Acid 3.0 H* (0.4-2.0) mmol/L Calcium 8.4 L (8.5-10.1) mg/dL Phosphorus (2.6-4.7) mg/dL Magnesium (1.8-2.4) mg/dL Ferritin (26-388) ng/ml Total Bilirubin 0.6 (0.2-1.0) mg/dL AST 36 (15-37) U/L ALT 38 (16-63) U/L Alkaline Phosphatase 116 (46-116) U/L C-Reactive Protein (<1.0) mg/dL NT-Pro-B Natriuret Pep (0-125) pg/mL Total Protein 5.9 L (6.4-8.2) g/dl Albumin 1.7 L (3.4-5.0) g/dl Globulin 4.2 gm/dL Albumin/Globulin Ratio 0.4 L (1-2) Procalcitonin ng/mL 11/29/20 11/29/20 11/29/20 Range/Units 00:30 03:37 03:37 WBC 15.06 H (4.23-9.07) K/mm3 RBC 4.11 L (4.63-6.08) M/mm3 Hgb 12.6 L (13.7-17.5) gm/dl Hct 37.3 L (40.1-51.0) % MCV 90.8 (79.0-92.2) fl MCH 30.7 (25.7-32.2) pg MCHC 33.8 (32.2-35.5) g/dl RDW Std Deviation 41.8 (35.1-43.9) fL Plt Count 245 (163-337) K/mm3 MPV 10.3 (9.4-12.3) fl Neut % (Auto) 91.2 H (34.0-67.9) % Lymph % (Auto) 2.9 L (21.8-53.1) % [place] % (Auto) 5.0 L (5.3-12.2) % Eos % (Auto) 0.1 L (0.8-7.0) Baso % (Auto) 0.1 (0.1-1.2) % Neut # (Auto) 13.73 H (1.78-5.38) K/mm3 Lymph # (Auto) 0.44 L (1.32-3.57) K/mm3 [place] # (Auto) 0.75 (0.30-0.82) K/mm3 Eos # (Auto) 0.01 L (0.04-0.54) K/mm3 Baso # (Auto) 0.02 (0.01-0.08) K/mm3 Manual Slide Review Abnormal smear PT (9.7-12.0) SECONDS INR APTT (21.7-31.4) SECONDS D-Dimer, Quantitative (0.19-0.50) mg/L Sodium 133 L (136-145) mEq/L Potassium 4.8 (3.5-5.1) mEq/L Chloride 101 (98-107) mEq/L Carbon Dioxide 27 (21-32) mEq/L Anion Gap 9.8 (5-15) BUN 21 H (7-18) mg/dL Creatinine 0.9 (0.7-1.3) mg/dL Est Cr Clr Drug Dosing 88.38 mL/min Estimated GFR (MDRD) > 60 (>60) mL/min BUN/Creatinine Ratio 23.3 H (14-18) Glucose 103 H (70-99) mg/dL Lactic Acid 2.7 H* (0.4-2.0) mmol/L Calcium 8.0 L (8.5-10.1) mg/dL Phosphorus 3.7 (2.6-4.7) mg/dL Magnesium 2.0 (1.8-2.4) mg/dL Ferritin (26-388) ng/ml Total Bilirubin 0.7 (0.2-1.0) mg/dL AST 32 (15-37) U/L ALT 34 (16-63) U/L Alkaline Phosphatase 111 (46-116) U/L C-Reactive Protein 19.1 H* (<1.0) mg/dL NT-Pro-B Natriuret Pep (0-125) pg/mL Total Protein 5.2 L (6.4-8.2) g/dl Albumin 1.5 L (3.4-5.0) g/dl Globulin 3.7 gm/dL Albumin/Globulin Ratio 0.4 L (1-2) Procalcitonin ng/mL 11/29/20 11/29/20 Range/Units 03:37 10:10 WBC (4.23-9.07) K/mm3 RBC (4.63-6.08) M/mm3 Hgb (13.7-17.5) gm/dl Hct (40.1-51.0) % MCV (79.0-92.2) fl MCH (25.7-32.2) pg MCHC (32.2-35.5) g/dl RDW Std Deviation (35.1-43.9) fL Plt Count (163-337) K/mm3 MPV (9.4-12.3) fl Neut % (Auto) (34.0-67.9) % Lymph % (Auto) (21.8-53.1) % [place] % (Auto) (5.3-12.2) % Eos % (Auto) (0.8-7.0) Baso % (Auto) (0.1-1.2) % Neut # (Auto) (1.78-5.38) K/mm3 Lymph # (Auto) (1.32-3.57) K/mm3 [place] # (Auto) (0.30-0.82) K/mm3 Eos # (Auto) (0.04-0.54) K/mm3 Baso # (Auto) (0.01-0.08) K/mm3 Manual Slide Review PT (9.7-12.0) SECONDS INR APTT (21.7-31.4) SECONDS D-Dimer, Quantitative (0.19-0.50) mg/L Sodium (136-145) mEq/L Potassium (3.5-5.1) mEq/L Chloride (98-107) mEq/L Carbon Dioxide (21-32) mEq/L Anion Gap (5-15) BUN (7-18) mg/dL Creatinine (0.7-1.3) mg/dL Est Cr Clr Drug Dosing mL/min Estimated GFR (MDRD) (>60) mL/min BUN/Creatinine Ratio (14-18) Glucose (70-99) mg/dL Lactic Acid 1.1 (0.4-2.0) mmol/L Calcium (8.5-10.1) mg/dL Phosphorus (2.6-4.7) mg/dL Magnesium (1.8-2.4) mg/dL Ferritin (26-388) ng/ml Total Bilirubin (0.2-1.0) mg/dL AST (15-37) U/L ALT (16-63) U/L Alkaline Phosphatase (46-116) U/L C-Reactive Protein (<1.0) mg/dL NT-Pro-B Natriuret Pep 199 H (0-125) pg/mL Total Protein (6.4-8.2) g/dl Albumin (3.4-5.0) g/dl Globulin gm/dL Albumin/Globulin Ratio (1-2) Procalcitonin ng/mL Result Diagrams: 11/29/20 03:37 11/29/20 03:37 Sepsis Event Note - Evaluation Sepsis Screening Result: Possible Sepsis Risk - Focused Exam Vital Signs: Vital Signs Temp Pulse Pulse Resp BP Pulse Ox Pulse Ox 11/29/20 13:04 96 11/29/20 12:00 96.9 F 53 L 20 111/71 98 11/29/20 08:00 98.1 F 61 18 100/74 95 11/29/20 07:55 93 L 11/29/20 06:53 11/29/20 06:00 64 25 H 90 L 11/29/20 05:00 68 21 H 92 L 11/29/20 04:00 97.9 F 24 H 105/64 88 L 11/29/20 03:00 63 23 H 91 L 11/29/20 02:00 68 28 H 90 L Pulse Ox 11/29/20 13:04 11/29/20 12:00 11/29/20 08:00 11/29/20 07:55 11/29/20 06:53 94 L 11/29/20 06:00 11/29/20 05:00 11/29/20 04:00 11/29/20 03:00 11/29/20 02:00 - Problem List & Annotations (1) Pneumonia due to COVID-19 virus SNOMED Code(s): 309172698282278076 Code(s): U07.1 - COVID-19; J12.82 - PNEUMONIA DUE TO CORONAVIRUS DISEASE 2019 Status: Acute Current Visit: Yes (2) Respiratory failure with hypoxia SNOMED Code(s): 92727378579029447 Code(s): J96.91 - RESPIRATORY FAILURE, UNSPECIFIED WITH HYPOXIA Status: Acute Current Visit: Yes (3) Asthma SNOMED Code(s): 184050812 Code(s): J45.909 - UNSPECIFIED ASTHMA, UNCOMPLICATED Status: Acute Current Visit: Yes - Problem List Review Problem List Initiated/Reviewed/Updated: Yes - My Orders Last 24 Hours: My Active Orders 11/28/20 16:55 Patient Status [ADT] Routine Bedrest Bedside Commode [RC] ASDIRECTED Oxygen Therapy [RC] PRN RT Incentive Spirometry [RC] ASDIRECTED VTE/DVT Education [RC] Vital Signs [RC] Q4HR Respiratory Care Assess and Treatment [CONS] Routine Acetaminophen [TylenoL] 650 mg PO Q4H PRN Albuterol/Ipratropium [DuoNeb 3.0-0.5 MG/3 ML] 3 ml NEB Q4H PRN Ondansetron [Zofran] 4 mg IV Q6H PRN polyethylene glycoL 3350 [MiraLAX] 17 gm PO DAILY PRN Isolation [COMM] Stat RT Acapella [RESPCARE] Routine Resuscitation Status Routine 11/28/20 16:58 Cardiac Monitoring [RC] CONTINUOUS Pulse Oximetry [RC] CONTINUOUS 11/28/20 17:00 Positioning, Patient [RC] ASDIRECTED Regular Diet [DIET] 11/28/20 17:01 Albuterol [Proventil HFA] See Dose Instructions INH Q2H PRN 11/28/20 17:02 RT Aerosol Therapy [RC] ASDIRECTED RT Post Treatment Assessment [RC] Click to Edit RT Pre-Treatment Assessment [RC] Click to Edit 11/28/20 17:05 LORazepam [Ativan] 1 mg PO Q4H PRN 11/28/20 17:06 LORazepam [Ativan] 1 mg IVPUSH Q2H PRN 11/28/20 17:11 Blood Culture x2 Reflex Set [OM.PC] Stat 11/28/20 17:23 BLOOD CULTURE [MREF] Stat 11/28/20 17:30 BLOOD CULTURE [MREF] Stat 11/28/20 21:00 Famotidine [Pepcid] 20 mg PO BID 11/28/20 21:04 Benzonatate [Tessalon Perles] 200 mg PO Q8H PRN 11/28/20 21:06 Acetaminophen/Codeine [Tylenol with Codeine No.3 300MG/30MG] 2 tab PO Q4H PRN 11/28/20 21:30 Enoxaparin [Lovenox] 80 mg SUBCUT Q12H 11/29/20 06:00 Piperacillin/Tazobactam [Piperacil-Tazobact] 4.5 gm Sodium Chloride 0.9% [Normal Saline] 100 ml IV Q8HR 11/29/20 09:00 dexAMETHasone 6 mg PO DAILY 11/29/20 11:48 Acetylcysteine [Mucomyst 20%] 800 mg NEB QIDRT PRN 11/29/20 11:49 RT Aerosol Therapy [RC] ASDIRECTED 11/30/20 05:11 C-REACTIVE PROTEIN [CHEM] AM CBC WITH AUTO DIFF [HEME] AM CMP [COMPREHENSIVE METABOLIC PN,CMP] [CHEM] AM MAGNESIUM [CHEM] AM PHOSPHORUS [CHEM] AM 12/01/20 05:11 C-REACTIVE PROTEIN [CHEM] AM CBC WITH AUTO DIFF [HEME] AM CMP [COMPREHENSIVE METABOLIC PN,CMP] [CHEM] AM MAGNESIUM [CHEM] AM PHOSPHORUS [CHEM] AM 12/02/20 05:11 C-REACTIVE PROTEIN [CHEM] AM CBC WITH AUTO DIFF [HEME] AM CMP [COMPREHENSIVE METABOLIC PN,CMP] [CHEM] AM MAGNESIUM [CHEM] AM PHOSPHORUS [CHEM] AM - Plan Plan:: 60-year-old male with history of asthma transferred from [facility] with COVID-19 pneumonia and hypoxia COVID-19 pneumonia Respiratory failure * Admitted to [facility] on November 21, 2020 * Received Regeneron on or around November 17, 2020 * Worsening condition oxygenation over the last few days increasing need for high flow nasal cannula/noninvasive ventilation * Uses albuterol and Advair for asthma generally in the fall harvesting season * Has received 6 days of remdesivir and dexamethasone * Remdesivir stopped * Dexamethasone for total of 10 days * Azithromycin stopped * Received Actemra on 11/28/2020 * Procalcitonin 0.36 * CRP 19.1 * proBNP 199 suggesting very little cardiac dysfunction Left-sided subsegmental pulmonary emboli Small bilateral pleural effusions * CTA on 11/28/2020 * Start Lovenox 1 mg/kg twice daily on the night of 11/28/2020 Severe protein malnutrition * Albumin 1.5 * Duration of illness has made proper nutrition difficult. * Also decreased production of albumin secondary to severity of illness * Likely contributing to the small bilateral pleural effusions. 11/29/2020 Kavin continues to worsen overnight. He is on BiPAP at 100% FiO2. He has developed bilateral pulmonary emboli and is on Lovenox 1 mg/kg twice daily. Fortunately his lactic acidosis has improved, but he is still severely protein malnourished. Patient is now on BiPAP which will decrease his ability to take in nutrients. We will need to consider parenteral nutrition. Did discuss with the family that he is high risk for intubation. Patient is proning and having aggressive respiratory therapy. Plan * Admit to ICU with strict isolation * FiO2 to keep SPO2 between 86 to 94%. Wean as tolerated. Currently on BiPAP at high percent FiO2 * Ativan to be able to tolerate anxiety BiPAP produces * Received Actemra last night * Continue dexamethasone 6 mg p.o. for total of 10 days * Counseled the patient regards to Actemra and gave him the EUA handout. He will consider this overnight. * Trial of Mucomyst for mucolytic will be preceded with bronchodilator. * DuoNeb every 2 hours as needed * Albuterol MDI 2 every 2 hours as needed * I-S and Acapella * Pepcid 20 mg twice daily * Monitor daily labs * VTE treatment with Lovenox * CODE STATUS: Full code
[2020-11-29] MEDS: Albuterol/Ipratropium 3.0-0.5 MG/3 ML Neb Soln NEB PRN (20:12)
[2020-11-29] MEDS: Benzonatate 100 MG Cap PO PRN (20:22)
[2020-11-30] MEDS: Acetaminophen/Codeine 300-30 MG Tab PO PRN ×4 (03:57→23:29)
[2020-11-30] MEDS: Benzonatate 100 MG Cap PO PRN ×3 (03:57→20:35)
[2020-11-30] MEDS: Piperacillin/Tazobactam 4.5 GM in Sodium Chloride 0.9% 100 ML IV SCH ×3 (06:18→21:33)
[2020-11-30] MEDS: Famotidine 20 MG Tab PO SCH ×2 (08:07→20:35)
[2020-11-30] MEDS: Dexamethasone 4 MG Tab PO SCH (08:15)
[2020-11-30] MEDS: Enoxaparin 80 MG/0.8 ML Syringe SUBCUT SCH ×2 (08:57→20:36)
[2020-11-30] MEDS: Albuterol/Ipratropium 3.0-0.5 MG/3 ML Neb Soln NEB PRN ×3 (09:30→20:20)
[2020-11-30] MEDS: Acetylcysteine 20% 200 MG/ML 4 ML Nebulizer Soln SDV NEB PRN ×2 (09:30→15:37)
--- NOTE | 2020-11-30 10:32 | PCM.PN ---
- General Info Date of Service: 11/30/20 Admission Dx/Problem (Free Text): Admission Diagnosis/Problem Admission Diagnosis/Problem Hypoxia Subjective Update: 60-year-old male, nonvaccinated, transferred from [facility] with COVID-19 pneumonia. Kavin does appear to have made some progress over the last 24 hours. He is currently on high flow nasal cannula at 60 L and 85% and has not required BiPAP overnight. He is in better spirits and states he had a good night last night. CRP did decrease from 1 19-12 and he received Actemra yesterday. Appetite has been fairly good. - Review of Systems General: Reports: Fatigue HEENT: Reports: No Symptoms Pulmonary: Reports: Shortness of Breath, Cough Cardiovascular: Reports: No Symptoms Gastrointestinal: Reports: No Symptoms Musculoskeletal: Reports: No Symptoms Skin: Reports: No Symptoms Psychiatric: Reports: No Symptoms - Patient Data Vitals - Most Recent: Last Vital Signs Temp 97.5 F 11/30/20 08:00 Pulse 68 11/30/20 08:01 Resp 26 H 11/30/20 08:01 BP 106/76 11/30/20 08:01 Pulse Ox 88 L 11/30/20 09:31 Weight - Most Recent: 170 lb 9.6 oz I&O - Last 24 Hours: Intake & Output 11/29/20 11/30/20 11/30/20 22:59 06:59 14:59 Intake Total 1255 900 360 Output Total 500 725 Balance 755 175 360 Lab Results Last 24 Hours: Laboratory Results - last 24 hr 11/28/20 11/29/20 11/30/20 Range/Units 17:30 10:10 06:06 WBC 14.32 H (4.23-9.07) K/mm3 RBC 4.04 L (4.63-6.08) M/mm3 Hgb 12.3 L (13.7-17.5) gm/dl Hct 37.7 L (40.1-51.0) % MCV 93.3 H (79.0-92.2) fl MCH 30.4 (25.7-32.2) pg MCHC 32.6 (32.2-35.5) g/dl RDW Std Deviation 42.9 (35.1-43.9) fL Plt Count 265 (163-337) K/mm3 MPV 11.2 (9.4-12.3) fl Neut % (Auto) 91.9 H (34.0-67.9) % Lymph % (Auto) 3.4 L (21.8-53.1) % [place] % (Auto) 3.6 L (5.3-12.2) % Eos % (Auto) 0 L (0.8-7.0) Baso % (Auto) 0.1 (0.1-1.2) % Neut # (Auto) 13.17 H (1.78-5.38) K/mm3 Lymph # (Auto) 0.48 L (1.32-3.57) K/mm3 [place] # (Auto) 0.51 (0.30-0.82) K/mm3 Eos # (Auto) 0.00 L (0.04-0.54) K/mm3 Baso # (Auto) 0.02 (0.01-0.08) K/mm3 Manual Slide Review Abnormal smear Sodium (136-145) mEq/L Potassium (3.5-5.1) mEq/L Chloride (98-107) mEq/L Carbon Dioxide (21-32) mEq/L Anion Gap (5-15) BUN (7-18) mg/dL Creatinine (0.7-1.3) mg/dL Est Cr Clr Drug Dosing mL/min Estimated GFR (MDRD) (>60) mL/min BUN/Creatinine Ratio (14-18) Glucose (70-99) mg/dL Calcium (8.5-10.1) mg/dL Phosphorus (2.6-4.7) mg/dL Magnesium (1.8-2.4) mg/dL Total Bilirubin (0.2-1.0) mg/dL AST (15-37) U/L ALT (16-63) U/L Alkaline Phosphatase (46-116) U/L C-Reactive Protein (<1.0) mg/dL NT-Pro-B Natriuret Pep 199 H (0-125) pg/mL Total Protein (6.4-8.2) g/dl Albumin (3.4-5.0) g/dl Globulin gm/dL Albumin/Globulin Ratio (1-2) Procalcitonin 0.36 H ng/mL 11/30/20 Range/Units 06:06 WBC (4.23-9.07) K/mm3 RBC (4.63-6.08) M/mm3 Hgb (13.7-17.5) gm/dl Hct (40.1-51.0) % MCV (79.0-92.2) fl MCH (25.7-32.2) pg MCHC (32.2-35.5) g/dl RDW Std Deviation (35.1-43.9) fL Plt Count (163-337) K/mm3 MPV (9.4-12.3) fl Neut % (Auto) (34.0-67.9) % Lymph % (Auto) (21.8-53.1) % [place] % (Auto) (5.3-12.2) % Eos % (Auto) (0.8-7.0) Baso % (Auto) (0.1-1.2) % Neut # (Auto) (1.78-5.38) K/mm3 Lymph # (Auto) (1.32-3.57) K/mm3 [place] # (Auto) (0.30-0.82) K/mm3 Eos # (Auto) (0.04-0.54) K/mm3 Baso # (Auto) (0.01-0.08) K/mm3 Manual Slide Review Sodium 131 L (136-145) mEq/L Potassium 4.2 (3.5-5.1) mEq/L Chloride 99 (98-107) mEq/L Carbon Dioxide 25 (21-32) mEq/L Anion Gap 11.2 (5-15) BUN 27 H (7-18) mg/dL Creatinine 1.0 (0.7-1.3) mg/dL Est Cr Clr Drug Dosing 79.54 mL/min Estimated GFR (MDRD) > 60 (>60) mL/min BUN/Creatinine Ratio 27.0 H (14-18) Glucose 170 H (70-99) mg/dL Calcium 7.9 L (8.5-10.1) mg/dL Phosphorus 3.5 (2.6-4.7) mg/dL Magnesium 2.1 (1.8-2.4) mg/dL Total Bilirubin 0.3 (0.2-1.0) mg/dL AST 17 (15-37) U/L ALT 26 (16-63) U/L Alkaline Phosphatase 120 H (46-116) U/L C-Reactive Protein 12.1 H* (<1.0) mg/dL NT-Pro-B Natriuret Pep (0-125) pg/mL Total Protein 5.2 L (6.4-8.2) g/dl Albumin 1.4 L (3.4-5.0) g/dl Globulin 3.8 gm/dL Albumin/Globulin Ratio 0.4 L (1-2) Procalcitonin ng/mL Med Orders - Current: Current Medications Acetaminophen (Acetaminophen 325 Mg Tab) 650 mg PO Q4H PRN PRN Reason: Pain (Mild 1-3)/fever Acetaminophen/Codeine Phosphate (Acetaminophen/Codeine 300-30 Mg Tab) 2 tab PO Q4H PRN PRN Reason: Chest Pain Last Admin: 11/30/20 08:08 Dose: 2 tab Documented by: Acetylcysteine (Acetylcysteine 20% 200 Mg/Ml 4 Ml Nebulizer Soln Sdv) 800 mg NEB QIDRT PRN PRN Reason: Shortness of Breath Last Admin: 11/30/20 09:30 Dose: 800 mg Documented by: Albuterol (Albuterol 6.7 Gm Inhaler) 0 gm INH Q2H PRN PRN Reason: Shortness of Breath Last Admin: 11/29/20 15:56 Dose: 2 inhalation Documented by: Albuterol/Ipratropium (Albuterol/Ipratropium 3.0-0.5 Mg/3 Ml Neb Soln) 3 ml NEB Q4H PRN PRN Reason: Shortness Of Breath/wheezing Last Admin: 11/30/20 09:30 Dose: 3 ml Documented by: Benzonatate (Benzonatate 100 Mg Cap) 200 mg PO Q8H PRN PRN Reason: Cough Last Admin: 11/30/20 03:57 Dose: 200 mg Documented by: Dexamethasone (Dexamethasone 4 Mg Tab) 6 mg PO DAILY [facility] Stop: 12/02/20 09:01 Last Admin: 11/30/20 08:15 Dose: 6 mg Documented by: Enoxaparin Sodium (Enoxaparin 80 Mg/0.8 Ml Syringe) 80 mg SUBCUT Q12H DADA Last Admin: 11/30/20 08:57 Dose: 80 mg Documented by: Famotidine (Famotidine 20 Mg Tab) 20 mg PO BID [facility] Last Admin: 11/30/20 08:07 Dose: 20 mg Documented by: Piperacillin Sod/Tazobactam (Sod 4.5 gm/ Sodium Chloride) 100 mls @ 25 mls/hr IV Q8HR [facility] Last Admin: 11/30/20 06:18 Dose: 25 mls/hr Documented by: Lorazepam (Lorazepam 1 Mg Tab) 1 mg PO Q4H PRN PRN Reason: Anxiety Last Admin: 11/28/20 21:55 Dose: 1 mg Documented by: Lorazepam (Lorazepam 2 Mg/Ml Sdv) 1 mg IVPUSH Q2H PRN PRN Reason: Anxiety Ondansetron HCl (Ondansetron 4 Mg/2 Ml Sdv) 4 mg IV Q6H PRN PRN Reason: Nausea/Vomiting Polyethylene Glycol (Polyethylene Glycol 3350 Powder 17 Gm Packet) 17 gm PO DAILY PRN PRN Reason: Constipation Discontinued Medications Enoxaparin Sodium (Enoxaparin 40 Mg/0.4 Ml Syringe) 40 mg SUBCUT DAILY [facility] Lactated Ringer's (Ringers, Lactated) 500 mls @ 250 mls/hr IV .BOLUS ONE Stop: 11/28/20 20:35 Last Admin: 11/28/20 18:45 Dose: 250 mls/hr Documented by: Sodium Chloride (Normal Saline) 100 mls @ 60 mls/min IV ASDIRECTED [facility] Last Admin: 11/28/20 20:03 Dose: 60 mls/min Documented by: Piperacillin Sod/Tazobactam (Sod 4.5 gm/ Sodium Chloride) 100 mls @ 200 mls/hr IV ONETIME ONE Stop: 11/28/20 21:41 Last Admin: 11/28/20 21:43 Dose: 200 mls/hr Documented by: Lactated Ringer's (Ringers, Lactated) 1,000 mls @ 125 mls/hr IV ASDIRECTED [facility] Last Admin: 11/28/20 21:52 Dose: 125 mls/hr Documented by: Tocilizumab 200 mg/Tocilizumab 400 mg/ Sodium Chloride 100 mls @ 100 mls/hr IV ONETIME ONE Stop: 11/29/20 09:59 Last Admin: 11/29/20 08:42 Dose: 100 mls/hr Documented by: Iopamidol (Iopamidol 755 Mg/Ml 100 Ml Bottle) 100 ml IVPUSH ONETIME ONE Stop: 11/28/20 20:02 Last Admin: 11/28/20 20:02 Dose: 100 ml Documented by: Lorazepam (Lorazepam 1 Mg Tab) 1 mg PO ONETIME ONE Stop: 11/28/20 16:41 Last Admin: 11/28/20 17:10 Dose: 1 mg Documented by: - Exam Quality Assessment: Supplemental Oxygen (High flow nasal cannula) General: Alert, Oriented HEENT: Pupils Equal, Mucous Membr. Moist/Bell Neck: Supple Lungs: Crackles (Throughout both lung tilley). No: Normal Respiratory Effort (Increased rate and effort) Cardiovascular: Regular Rate, Regular Rhythm GI/Abdominal Exam: Normal Bowel Sounds, Non-Tender, No Distention Extremities: Normal Inspection, Normal Range of Motion, Non-Tender, No Pedal Edema, Normal Capillary Refill Skin: Warm, Dry, Intact Psy/Mental Status: Alert, Normal Affect, Normal Mood - Patient Data Lab Results Last 24 hrs: Laboratory Results - last 24 hr 11/28/20 11/29/20 11/30/20 Range/Units 17:30 10:10 06:06 WBC 14.32 H (4.23-9.07) K/mm3 RBC 4.04 L (4.63-6.08) M/mm3 Hgb 12.3 L (13.7-17.5) gm/dl Hct 37.7 L (40.1-51.0) % MCV 93.3 H (79.0-92.2) fl MCH 30.4 (25.7-32.2) pg MCHC 32.6 (32.2-35.5) g/dl RDW Std Deviation 42.9 (35.1-43.9) fL Plt Count 265 (163-337) K/mm3 MPV 11.2 (9.4-12.3) fl Neut % (Auto) 91.9 H (34.0-67.9) % Lymph % (Auto) 3.4 L (21.8-53.1) % [place] % (Auto) 3.6 L (5.3-12.2) % Eos % (Auto) 0 L (0.8-7.0) Baso % (Auto) 0.1 (0.1-1.2) % Neut # (Auto) 13.17 H (1.78-5.38) K/mm3 Lymph # (Auto) 0.48 L (1.32-3.57) K/mm3 [place] # (Auto) 0.51 (0.30-0.82) K/mm3 Eos # (Auto) 0.00 L (0.04-0.54) K/mm3 Baso # (Auto) 0.02 (0.01-0.08) K/mm3 Manual Slide Review Abnormal smear Sodium (136-145) mEq/L Potassium (3.5-5.1) mEq/L Chloride (98-107) mEq/L Carbon Dioxide (21-32) mEq/L Anion Gap (5-15) BUN (7-18) mg/dL Creatinine (0.7-1.3) mg/dL Est Cr Clr Drug Dosing mL/min Estimated GFR (MDRD) (>60) mL/min BUN/Creatinine Ratio (14-18) Glucose (70-99) mg/dL Calcium (8.5-10.1) mg/dL Phosphorus (2.6-4.7) mg/dL Magnesium (1.8-2.4) mg/dL Total Bilirubin (0.2-1.0) mg/dL AST (15-37) U/L ALT (16-63) U/L Alkaline Phosphatase (46-116) U/L C-Reactive Protein (<1.0) mg/dL NT-Pro-B Natriuret Pep 199 H (0-125) pg/mL Total Protein (6.4-8.2) g/dl Albumin (3.4-5.0) g/dl Globulin gm/dL Albumin/Globulin Ratio (1-2) Procalcitonin 0.36 H ng/mL 11/30/20 Range/Units 06:06 WBC (4.23-9.07) K/mm3 RBC (4.63-6.08) M/mm3 Hgb (13.7-17.5) gm/dl Hct (40.1-51.0) % MCV (79.0-92.2) fl MCH (25.7-32.2) pg MCHC (32.2-35.5) g/dl RDW Std Deviation (35.1-43.9) fL Plt Count (163-337) K/mm3 MPV (9.4-12.3) fl Neut % (Auto) (34.0-67.9) % Lymph % (Auto) (21.8-53.1) % [place] % (Auto) (5.3-12.2) % Eos % (Auto) (0.8-7.0) Baso % (Auto) (0.1-1.2) % Neut # (Auto) (1.78-5.38) K/mm3 Lymph # (Auto) (1.32-3.57) K/mm3 [place] # (Auto) (0.30-0.82) K/mm3 Eos # (Auto) (0.04-0.54) K/mm3 Baso # (Auto) (0.01-0.08) K/mm3 Manual Slide Review Sodium 131 L (136-145) mEq/L Potassium 4.2 (3.5-5.1) mEq/L Chloride 99 (98-107) mEq/L Carbon Dioxide 25 (21-32) mEq/L Anion Gap 11.2 (5-15) BUN 27 H (7-18) mg/dL Creatinine 1.0 (0.7-1.3) mg/dL Est Cr Clr Drug Dosing 79.54 mL/min Estimated GFR (MDRD) > 60 (>60) mL/min BUN/Creatinine Ratio 27.0 H (14-18) Glucose 170 H (70-99) mg/dL Calcium 7.9 L (8.5-10.1) mg/dL Phosphorus 3.5 (2.6-4.7) mg/dL Magnesium 2.1 (1.8-2.4) mg/dL Total Bilirubin 0.3 (0.2-1.0) mg/dL AST 17 (15-37) U/L ALT 26 (16-63) U/L Alkaline Phosphatase 120 H (46-116) U/L C-Reactive Protein 12.1 H* (<1.0) mg/dL NT-Pro-B Natriuret Pep (0-125) pg/mL Total Protein 5.2 L (6.4-8.2) g/dl Albumin 1.4 L (3.4-5.0) g/dl Globulin 3.8 gm/dL Albumin/Globulin Ratio 0.4 L (1-2) Procalcitonin ng/mL Result Diagrams: 11/30/20 06:06 11/30/20 06:06 Sepsis Event Note - Evaluation Sepsis Screening Result: Severe Sepsis Risk - Focused Exam Vital Signs: Vital Signs Temp Pulse Resp BP BP Pulse Ox Pulse Ox 11/30/20 09:31 88 L 11/30/20 08:01 68 26 H 106/76 93 L 11/30/20 08:00 97.5 F 63 20 91 L 11/30/20 07:00 62 23 H 91 L 11/30/20 06:00 56 L 24 H 92 L 11/30/20 05:00 61 24 H 96 11/30/20 04:01 65 21 H 91 L 11/30/20 04:00 97.8 F 21 H 117/75 96 11/30/20 03:04 94 L 11/30/20 03:00 70 28 H 97 11/30/20 02:00 50 L 21 H 97 11/30/20 01:00 52 L 26 H 95 11/30/20 00:00 97.4 F 25 H 114/71 91 L 11/29/20 23:00 60 25 H 94 L - Problem List & Annotations (1) Pneumonia due to COVID-19 virus SNOMED Code(s): 843183768673233497 Code(s): U07.1 - COVID-19; J12.82 - PNEUMONIA DUE TO CORONAVIRUS DISEASE 2019 Status: Acute Current Visit: Yes (2) Respiratory failure with hypoxia SNOMED Code(s): 58597045449922851 Code(s): J96.91 - RESPIRATORY FAILURE, UNSPECIFIED WITH HYPOXIA Status: Ac [place] Current Visit: Yes (3) Asthma SNOMED Code(s): 159306475 Code(s): J45.909 - UNSPECIFIED ASTHMA, UNCOMPLICATED Status: Acute Current Visit: Yes - Problem List Review Problem List Initiated/Reviewed/Updated: Yes - My Orders Last 24 Hours: My Active Orders 11/29/20 11:48 Acetylcysteine [Mucomyst 20%] 800 mg NEB QIDRT PRN 11/29/20 11:49 RT Aerosol Therapy [RC] ASDIRECTED 12/01/20 05:11 C-REACTIVE PROTEIN [CHEM] AM CBC WITH AUTO DIFF [HEME] AM CMP [COMPREHENSIVE METABOLIC PN,CMP] [CHEM] AM MAGNESIUM [CHEM] AM PHOSPHORUS [CHEM] AM 12/02/20 05:11 C-REACTIVE PROTEIN [CHEM] AM CBC WITH AUTO DIFF [HEME] AM CMP [COMPREHENSIVE METABOLIC PN,CMP] [CHEM] AM MAGNESIUM [CHEM] AM PHOSPHORUS [CHEM] AM - Plan Plan:: 60-year-old male with history of asthma transferred from [facility] with COVID-19 pneumonia and hypoxia COVID-19 pneumonia Respiratory failure * Admitted to [facility] on November 21, 2020 * Received Regeneron on or around November 17, 2020 * Worsening condition oxygenation over the last few days increasing need for high flow nasal cannula/noninvasive ventilation * Uses albuterol and Advair for asthma generally in the fall harvesting season * Has received 6 days of remdesivir and dexamethasone * Remdesivir stopped * Dexamethasone for total of 10 days * Azithromycin stopped * Received Actemra on 11/28/2020 * Procalcitonin 0.36 * CRP 19.1 * proBNP 199 suggesting very little cardiac dysfunction Left-sided subsegmental pulmonary emboli Small bilateral pleural effusions * CTA on 11/28/2020 * Start Lovenox 1 mg/kg twice daily on the night of 11/28/2020 Severe protein malnutrition * Albumin 1.5 * Duration of illness has made proper nutrition difficult. * Also decreased production of albumin secondary to severity of illness * Likely contributing to the small bilateral pleural effusions. 11/29/2020 Kavin continues to worsen overnight. He is on BiPAP at 100% FiO2. He has developed bilateral pulmonary emboli and is on Lovenox 1 mg/kg twice daily. Fortunately his lactic acidosis has improved, but he is still severely protein malnourished. Patient is now on BiPAP which will decrease his ability to take in nutrients. We will need to consider parenteral nutrition. Did discuss with the family that he is high risk for intubation. Patient is proning and having aggressive respiratory therapy. 11/30/2020 Oxygen saturations have improved and he is now on high flow nasal cannula at 60 L and 85%. He continues on Lovenox 1 mg/kg twice daily for his bilateral pulmonary emboli. His albumin continues to drop and is down to 1.4. Fortunately C-reactive protein is decreased from 19-12.1. White count is stable at 14 and likely secondary to steroids and not bacterial infection since his procalcitonin was less than 0.5. Encouraged him to increase protein intake. He still desats significantly when he does any movement. Plan * ICU with strict isolation * FiO2 to keep SPO2 between 86 to 94%. Wean as tolerated. High flow nasal cannula * Ativan as needed * Actemra on 11/28/2020 * Continue dexamethasone 6 mg p.o. for total of 10 days * Counseled the patient regards to Actemra and gave him the EUA handout. He will consider this overnight. * Mucomyst for mucolytic as needed * DuoNeb every 2 hours as needed * Albuterol MDI 2 every 2 hours as needed * I-S and Acapella * Pepcid 20 mg twice daily * Monitor daily labs * VTE treatment with Lovenox * CODE STATUS: Full code Spoke with and daughter and gave him a update on his condition.
[2020-12-01] MEDS: Albuterol/Ipratropium 3.0-0.5 MG/3 ML Neb Soln NEB PRN ×4 (00:28→21:18)
[2020-12-01] MEDS: Piperacillin/Tazobactam 4.5 GM in Sodium Chloride 0.9% 100 ML IV SCH ×3 (06:28→21:02)
[2020-12-01] MEDS: Famotidine 20 MG Tab PO SCH ×2 (09:27→20:44)
[2020-12-01] MEDS: Dexamethasone 4 MG Tab PO SCH (09:27)
[2020-12-01] MEDS: Enoxaparin 80 MG/0.8 ML Syringe SUBCUT SCH ×2 (09:28→20:43)
[2020-12-01] MEDS: guaiFENesin 600 MG Tab.ER PO SCH ×3 (09:28→20:43)
[2020-12-01] MEDS ORDERED: Furosemide 20 MG/2 ML VIAL IVPUSH ONE (10:09)
--- NOTE | 2020-12-01 10:10 | PCM.PN ---
- General Info Date of Service: 12/01/20 Admission Dx/Problem (Free Text): Admission Diagnosis/Problem Admission Diagnosis/Problem Hypoxia Subjective Update: Kavin had a difficult morning switching from high flow nasal cannula to BiPAP at 18/12 and 100% FiO2. It took several hours for him to start to improve and by the early afternoon he was up to the mid to low 90s with BiPAP 18/11 and 95% FiO2. I discussed intubation with him and at this time he stated he did not want to be intubated because he felt like he was getting better. Functional Status: Reports: Pain Controlled - Review of Systems General: Reports: Fatigue HEENT: Reports: No Symptoms Pulmonary: Reports: Shortness of Breath Cardiovascular: Reports: No Symptoms Gastrointestinal: Reports: No Symptoms Musculoskeletal: Reports: No Symptoms - Patient Data Vitals - Most Recent: Last Vital Signs Temp 97.2 F 12/01/20 08:00 Pulse 69 12/01/20 08:00 Resp 28 H 12/01/20 08:57 BP 105/76 12/01/20 08:00 Pulse Ox 88 L 12/01/20 08:57 Weight - Most Recent: 172 lb 14.4 oz I&O - Last 24 Hours: Intake & Output 11/30/20 12/01/20 12/01/20 22:59 06:59 14:59 Intake Total 920 1100 Output Total 1200 1100 550 Balance -280 0 -550 Lab Results Last 24 Hours: Laboratory Results - last 24 hr 12/01/20 12/01/20 Range/Units 04:57 04:57 WBC 17.29 H (4.23-9.07) K/mm3 RBC 4.16 L (4.63-6.08) M/mm3 Hgb 12.6 L (13.7-17.5) gm/dl Hct 38.6 L (40.1-51.0) % MCV 92.8 H (79.0-92.2) fl MCH 30.3 (25.7-32.2) pg MCHC 32.6 (32.2-35.5) g/dl RDW Std Deviation 41.9 (35.1-43.9) fL Plt Count 301 (163-337) K/mm3 MPV 11.4 (9.4-12.3) fl Neut % (Auto) 91.0 H (34.0-67.9) % Lymph % (Auto) 3.2 L (21.8-53.1) % [place] % (Auto) 4.6 L (5.3-12.2) % Eos % (Auto) 0 L (0.8-7.0) Baso % (Auto) 0.2 (0.1-1.2) % Neut # (Auto) 15.73 H (1.78-5.38) K/mm3 Lymph # (Auto) 0.56 L (1.32-3.57) K/mm3 [place] # (Auto) 0.80 (0.30-0.82) K/mm3 Eos # (Auto) 0.00 L (0.04-0.54) K/mm3 Baso # (Auto) 0.03 (0.01-0.08) K/mm3 Manual Slide Review Sodium 133 L (136-145) mEq/L Potassium 4.3 (3.5-5.1) mEq/L Chloride 100 (98-107) mEq/L Carbon Dioxide 26 (21-32) mEq/L Anion Gap 11.3 (5-15) BUN 25 H (7-18) mg/dL Creatinine 0.9 (0.7-1.3) mg/dL Est Cr Clr Drug Dosing 88.38 mL/min Estimated GFR (MDRD) > 60 (>60) mL/min BUN/Creatinine Ratio 27.8 H (14-18) Glucose 149 H (70-99) mg/dL Calcium 8.0 L (8.5-10.1) mg/dL Phosphorus 3.3 (2.6-4.7) mg/dL Magnesium 2.0 (1.8-2.4) mg/dL Total Bilirubin 0.4 (0.2-1.0) mg/dL AST 29 (15-37) U/L ALT 36 (16-63) U/L Alkaline Phosphatase 178 H (46-116) U/L C-Reactive Protein 4.8 H* (<1.0) mg/dL Total Protein 5.4 L (6.4-8.2) g/dl Albumin 1.6 L (3.4-5.0) g/dl Globulin 3.8 gm/dL Albumin/Globulin Ratio 0.4 L (1-2) Jamal Results Last 24 Hours: Microbiology 11/28/20 17:30 Blood Culture - Preliminary Blood - Venous - Lab Draw 11/28/20 17:23 Blood Culture - Preliminary Blood - Venous Med Orders - Current: Current Medications Acetaminophen (Acetaminophen 325 Mg Tab) 650 mg PO Q4H PRN PRN Reason: Pain (Mild 1-3)/fever Acetaminophen/Codeine Phosphate (Acetaminophen/Codeine 300-30 Mg Tab) 2 tab PO Q4H PRN PRN Reason: Chest Pain Last Admin: 11/30/20 23:29 Dose: 2 tab Documented by: Acetylcysteine (Acetylcysteine 20% 200 Mg/Ml 4 Ml Nebulizer Soln Sdv) 800 mg NEB QIDRT PRN PRN Reason: Shortness of Breath Last Admin: 11/30/20 15:37 Dose: 800 mg Documented by: Albuterol (Albuterol 6.7 Gm Inhaler) 0 gm INH Q2H PRN PRN Reason: Shortness of Breath Last Admin: 11/29/20 15:56 Dose: 2 inhalation Documented by: Albuterol/Ipratropium (Albuterol/Ipratropium 3.0-0.5 Mg/3 Ml Neb Soln) 3 ml NEB Q4H PRN PRN Reason: Shortness Of Breath/wheezing Last Admin: 12/01/20 07:58 Dose: 3 ml Documented by: Benzonatate (Benzonatate 100 Mg Cap) 200 mg PO Q8H PRN PRN Reason: Cough Last Admin: 11/30/20 20:35 Dose: 200 mg Documented by: Dexamethasone (Dexamethasone 4 Mg Tab) 6 mg PO DAILY [facility] Stop: 12/02/20 09:01 Last Admin: 12/01/20 09:27 Dose: 6 mg Documented by: Enoxaparin Sodium (Enoxaparin 80 Mg/0.8 Ml Syringe) 80 mg SUBCUT Q12H [facility] Last Admin: 12/01/20 09:28 Dose: 80 mg Documented by: Famotidine (Famotidine 20 Mg Tab) 20 mg PO BID [facility] Last Admin: 12/01/20 09:27 Dose: 20 mg Documented by: Furosemide (Furosemide 40 Mg/4 Ml Vial) 20 mg IVPUSH NOW ONE Stop: 12/01/20 10:10 Guaifenesin (Guaifenesin 600 Mg Tab.Er) 600 mg PO TID [facility] Last Admin: 12/01/20 09:28 Dose: 600 mg Documented by: Piperacillin Sod/Tazobactam (Sod 4.5 gm/ Sodium Chloride) 100 mls @ 25 mls/hr IV Q8HR [facility] Last Admin: 12/01/20 06:28 Dose: 25 mls/hr Documented by: Albumin Human 12.5 gm/ Premix 50 mls @ 50 mls/hr IV Q1H [facility] Lorazepam (Lorazepam 1 Mg Tab) 1 mg PO Q4H PRN PRN Reason: Anxiety Last Admin: 11/28/20 21:55 Dose: 1 mg Documented by: Lorazepam (Lorazepam 2 Mg/Ml Sdv) 1 mg IVPUSH Q2H PRN PRN Reason: Anxiety Ondansetron HCl (Ondansetron 4 Mg/2 Ml Sdv) 4 mg IV Q6H PRN PRN Reason: Nausea/Vomiting Polyethylene Glycol (Polyethylene Glycol 3350 Powder 17 Gm Packet) 17 gm PO DAILY PRN PRN Reason: Constipation Discontinued Medications Enoxaparin Sodium (Enoxaparin 40 Mg/0.4 Ml Syringe) 40 mg SUBCUT DAILY [facility] Lactated Ringer's (Ringers, Lactated) 500 mls @ 250 mls/hr IV .BOLUS ONE Stop: 11/28/20 20:35 Last Admin: 11/28/20 18:45 Dose: 250 mls/hr Documented by: Sodium Chloride (Normal Saline) 100 mls @ 60 mls/min IV ASDIRECTED [facility] Last Admin: 11/28/20 20:03 Dose: 60 mls/min Documented by: Piperacillin Sod/Tazobactam (Sod 4.5 gm/ Sodium Chloride) 100 mls @ 200 mls/hr IV ONETIME ONE Stop: 11/28/20 21:41 Last Admin: 11/28/20 21:43 Dose: 200 mls/hr Documented by: Lactated Ringer's (Ringers, Lactated) 1,000 mls @ 125 mls/hr IV ASDIRECTED [facility] Last Admin: 11/28/20 21:52 Dose: 125 mls/hr Documented by: Tocilizumab 200 mg/Tocilizumab 400 mg/ Sodium Chloride 100 mls @ 100 mls/hr IV ONETIME ONE Stop: 11/29/20 09:59 Last Admin: 11/29/20 08:42 Dose: 100 mls/hr Documented by: Iopamidol (Iopamidol 755 Mg/Ml 100 Ml Bottle) 100 ml IVPUSH ONETIME ONE Stop: 11/28/20 20:02 Last Admin: 11/28/20 20:02 Dose: 100 ml Documented by: Lorazepam (Lorazepam 1 Mg Tab) 1 mg PO ONETIME ONE Stop: 11/28/20 16:41 Last Admin: 11/28/20 17:10 Dose: 1 mg Documented by: - Exam Quality Assessment: Supplemental Oxygen General: Alert, Oriented HEENT: Pupils Equal, Mucous Membr. Moist/[place]: Supple Lungs: No: Normal Respiratory Effort (Increased rate and effort did improve in the afternoon) Cardiovascular: Regular Rate, Regular Rhythm GI/Abdominal Exam: Normal Bowel Sounds, Soft, Non-Tender, No Distention Extremities: Normal Inspection, Non-Tender, No Pedal Edema, Normal Capillary Refill Skin: Warm, Dry, Intact Psy/Mental Status: Alert, Normal Affect, Normal Mood - Patient Data Lab Results Last 24 hrs: Laboratory Results - last 24 hr 12/01/20 12/01/20 Range/Units 04:57 04:57 WBC 17.29 H (4.23-9.07) K/mm3 RBC 4.16 L (4.63-6.08) M/mm3 Hgb 12.6 L (13.7-17.5) gm/dl Hct 38.6 L (40.1-51.0) % MCV 92.8 H (79.0-92.2) fl MCH 30.3 (25.7-32.2) pg MCHC 32.6 (32.2-35.5) g/dl RDW Std Deviation 41.9 (35.1-43.9) fL Plt Count 301 (163-337) K/mm3 MPV 11.4 (9.4-12.3) fl Neut % (Auto) 91.0 H (34.0-67.9) % Lymph % (Auto) 3.2 L (21.8-53.1) % [place] % (Auto) 4.6 L (5.3-12.2) % Eos % (Auto) 0 L (0.8-7.0) Baso % (Auto) 0.2 (0.1-1.2) % Neut # (Auto) 15.73 H (1.78-5.38) K/mm3 Lymph # (Auto) 0.56 L (1.32-3.57) K/mm3 [place] # (Auto) 0.80 (0.30-0.82) K/mm3 Eos # (Auto) 0.00 L (0.04-0.54) K/mm3 Baso # (Auto) 0.03 (0.01-0.08) K/mm3 Manual Slide Review Sodium 133 L (136-145) mEq/L Potassium 4.3 (3.5-5.1) mEq/L Chloride 100 (98-107) mEq/L Carbon Dioxide 26 (21-32) mEq/L Anion Gap 11.3 (5-15) BUN 25 H (7-18) mg/dL Creatinine 0.9 (0.7-1.3) mg/dL Est Cr Clr Drug Dosing 88.38 mL/min Estimated GFR (MDRD) > 60 (>60) mL/min BUN/Creatinine Ratio 27.8 H (14-18) Glucose 149 H (70-99) mg/dL Calcium 8.0 L (8.5-10.1) mg/dL Phosphorus 3.3 (2.6-4.7) mg/dL Magnesium 2.0 (1.8-2.4) mg/dL Total Bilirubin 0.4 (0.2-1.0) mg/dL AST 29 (15-37) U/L ALT 36 (16-63) U/L Alkaline Phosphatase 178 H (46-116) U/L C-Reactive Protein 4.8 H* (<1.0) mg/dL Total Protein 5.4 L (6.4-8.2) g/dl Albumin 1.6 L (3.4-5.0) g/dl Globulin 3.8 gm/dL Albumin/Globulin Ratio 0.4 L (1-2) Result Diagrams: 12/01/20 04:57 12/01/20 04:57 Jamal Results Last 24 hrs: Microbiology 11/28/20 17:30 Blood Culture - Preliminary Blood - Venous - Lab Draw 11/28/20 17:23 Blood Culture - Preliminary Blood - Venous Sepsis Event Note - Evaluation Sepsis Screening Result: Severe Sepsis Risk - Focused Exam Vital Signs: Vital Signs Temp Pulse Pulse Resp BP Pulse Ox Pulse Ox 12/01/20 08:57 28 H 88 L 12/01/20 08:34 88 L 12/01/20 08:00 97.2 F 69 30 H 105/76 88 L 12/01/20 07:58 12/01/20 06:56 89 L 12/01/20 05:56 12/01/20 04:01 54 L 19 92 L 12/01/20 04:00 7.8 F L 28 H 114/77 89 L 12/01/20 03:00 69 25 H 91 L 12/01/20 02:00 68 17 87 L 12/01/20 01:00 76 27 H 88 L 12/01/20 00:28 12/01/20 00:00 97.4 F 26 H 112/73 89 L Pulse Ox 12/01/20 08:57 12/01/20 08:34 12/01/20 08:00 12/01/20 07:58 89 L 12/01/20 06:56 12/01/20 05:56 90 L 12/01/20 04:01 12/01/20 04:00 12/01/20 03:00 12/01/20 02:00 12/01/20 01:00 12/01/20 00:28 92 L 12/01/20 00:00 - Problem List & Annotations (1) Pneumonia due to COVID-19 virus SNOMED Code(s): 645394247142065571 Code(s): U07.1 - COVID-19; J12.82 - PNEUMONIA DUE TO CORONAVIRUS DISEASE 2019 Status: Acute Current Visit: Yes (2) Respiratory failure with hypoxia SNOMED Code(s): 67600680539511139 Code(s): J96.91 - RESPIRATORY FAILURE, UNSPECIFIED WITH HYPOXIA Status: Acute Current Visit: Yes (3) Asthma SNOMED Code(s): 073641816 Code(s): J45.909 - UNSPECIFIED ASTHMA, UNCOMPLICATED Status: Acute Current Visit: Yes - Problem List Review Problem List Initiated/Reviewed/Updated: Yes - My Orders Last 24 Hours: My Active Orders 11/30/20 12:00 Dietary Supplements [RC] TIDMEALS 12/01/20 09:00 guaiFENesin [Mucinex] 600 mg PO TID 12/01/20 09:24 ABG [BLOOD GAS ARTERIAL] [BG] Urgent 12/01/20 10:09 Furosemide [Lasix] 20 mg IVPUSH NOW ONE 12/01/20 10:15 Albumin 25% [Flexbumin 25%] 12.5 gm Premix Bag 1 bag IV Q1H 12/02/20 05:11 C-REACTIVE PROTEIN [CHEM] AM CBC WITH AUTO DIFF [HEME] AM CMP [COMPREHENSIVE METABOLIC PN,CMP] [CHEM] AM MAGNESIUM [CHEM] AM PHOSPHORUS [CHEM] AM - Plan Plan:: 60-year-old male with history of asthma transferred from [facility] with COVID-19 pneumonia and hypoxia COVID-19 pneumonia Respiratory failure * Admitted to [facility] on November 21, 2020 * Received Regeneron on or around November 17, 2020 * Worsening condition oxygenation over the last few days increasing need for high flow nasal cannula/noninvasive ventilation * Uses albuterol and Advair for asthma generally in the fall harvesting season * Has received 6 days of remdesivir and dexamethasone * Remdesivir stopped * Dexamethasone for total of 10 days * Azithromycin stopped * Received Actemra on 11/28/2020 * Procalcitonin 0.36 * CRP 19.1 * proBNP 199 suggesting very little cardiac dysfunction Left-sided subsegmental pulmonary emboli Small bilateral pleural effusions * CTA on 11/28/2020 * Start Lovenox 1 mg/kg twice daily on the night of 11/28/2020 Severe protein malnutrition * Albumin 1.5 * Duration of illness has made proper nutrition difficult. * Also decreased production of albumin secondary to severity of illness * Likely contributing to the small bilateral pleural effusions. 11/29/2020 Kavin continues to worsen overnight. He is on BiPAP at 100% FiO2. He has developed bilateral pulmonary emboli and is on Lovenox 1 mg/kg twice daily. Fortunately his lactic acidosis has improved, but he is still severely protein malnourished. Patient is now on BiPAP which will decrease his ability to take in nutrients. We will need to consider parenteral nutrition. Did discuss with the family that he is high risk for intubation. Patient is proning and having aggressive respiratory therapy. 11/30/2020 Oxygen saturations have improved and he is now on high flow nasal cannula at 60 L and 85%. He continues on Lovenox 1 mg/kg twice daily for his bilateral pulmonary emboli. His albumin continues to drop and is down to 1.4. Aurelia anders C-reactive protein is decreased from 19-12.1. White count is stable at 14 and likely secondary to steroids and not bacterial infection since his procalcitonin was less than 0.5. Encouraged him to increase protein intake. He still desats significantly when he does any movement. 12/01/2020 Patient has significant worsening of his condition today. He is back on BiPAP at 95%. Respiratory status has improved this afternoon. I discussed his condition with him and stated he may need to be intubated. At this time he does not want to be. We did place him on a transfer list, there are no beds available in [place] or the adjacent [facility]. I share with him a significant concerns about worsening barotrauma on his lungs and fatigue. ABG was performed today which did show a good pH of 7.39, PCO2 of 44.3, low PO2 64, and bicarb of 26. Percent saturation was 90.5% which correlated with the pulse ox. Fortunately other factors including renal function and liver function was still very good. CRP is down to 4.8 and albumin increased a little bit to 1.6. We will try to give him albumin and Lasix to draw off any extra fluid from the interstitial space that we can. Plan * ICU with strict isolation * FiO2 to keep SPO2 between 86 to 94%. Wean as tolerated. High flow nasal cannula * Albumin 12.5 g * Lasix 20 mg IV x1 * Ativan as needed * Actemra on 11/28/2020 * Continue dexamethasone 6 mg p.o. for total of 10 days * Mucomyst for mucolytic as needed * DuoNeb every 2 hours as needed * Albuterol MDI 2 every 2 hours as needed * I-S and Acapella when able * Pepcid 20 mg twice daily * Monitor daily labs * VTE treatment with Lovenox * CODE STATUS: Full code and daughter and gave him a update on his condition.
[2020-12-01] MEDS ORDERED: Albumin 25% 12.5 GM in Premix Bag 1 BAG IV ONE (10:15)
[2020-12-01] MEDS: Albuterol 6.7 GM Inhaler INH PRN ×2 (14:29→17:10)
[2020-12-01] MEDS: Acetylcysteine 20% 200 MG/ML 4 ML Nebulizer Soln SDV NEB PRN (17:11)
[2020-12-01] MEDS: Benzonatate 100 MG Cap PO PRN (20:43)
[2020-12-01] MEDS: Acetaminophen/Codeine 300-30 MG Tab PO PRN (23:02)
[2020-12-02] MEDS: Piperacillin/Tazobactam 4.5 GM in Sodium Chloride 0.9% 100 ML IV SCH ×3 (06:11→18:43)
[2020-12-02] MEDS ORDERED: hydrOXYzine HCl 50 MG Tab PO PRN (07:19)
[2020-12-02] MEDS: Albuterol/Ipratropium 3.0-0.5 MG/3 ML Neb Soln NEB PRN ×3 (08:32→19:55)
[2020-12-02] MEDS: guaiFENesin 600 MG Tab.ER PO SCH ×3 (09:01→22:33)
[2020-12-02] MEDS: Dexamethasone 4 MG Tab PO SCH (09:01)
[2020-12-02] MEDS: Enoxaparin 80 MG/0.8 ML Syringe SUBCUT SCH ×2 (09:01→21:30)
[2020-12-02] MEDS: Famotidine 20 MG Tab PO SCH ×2 (09:01→20:15)
--- NOTE | 2020-12-02 11:57 | PCM.PN ---
- General Info Date of Service: 12/02/20 Admission Dx/Problem (Free Text): Admission Diagnosis/Problem Admission Diagnosis/Problem Hypoxia Subjective Update: Kavin has been on BiPAP at 100% most of the morning. Just over the last part of the afternoon was he able to be weaned down to 85%. Oxygen saturations are improving. Patient did have some anxiety this morning and received hydroxyzine which did sedate him and may have decrease his respiratory drive a bit for a few hours. Now he is looking much better, laying on his side, and is in better spirits. Functional Status: Reports: Other (Unable to communicate review of systems secondary to BiPAP) - Patient Data Vitals - Most Recent: Last Vital Signs Temp 97.6 F 12/02/20 08:00 Pulse 52 L 12/02/20 06:00 Resp 19 12/02/20 08:00 BP 108/66 12/02/20 08:00 Pulse Ox 88 L 12/02/20 08:33 Weight - Most Recent: 168 lb 1.6 oz I&O - Last 24 Hours: Intake & Output 12/01/20 12/02/20 12/02/20 22:59 06:59 14:59 Intake Total 1130 900 Output Total 1250 1050 200 Balance -120 -150 -200 Lab Results Last 24 Hours: Laboratory Results - last 24 hr 12/02/20 12/02/20 Range/Units 04:44 04:44 WBC 14.66 H (4.23-9.07) K/mm3 RBC 4.30 L (4.63-6.08) M/mm3 Hgb 13.2 L (13.7-17.5) gm/dl Hct 39.8 L (40.1-51.0) % MCV 92.6 H (79.0-92.2) fl MCH 30.7 (25.7-32.2) pg MCHC 33.2 (32.2-35.5) g/dl RDW Std Deviation 42.0 (35.1-43.9) fL Plt Count 294 (163-337) K/mm3 MPV 11.1 (9.4-12.3) fl Neut % (Auto) 87.8 H (34.0-67.9) % Lymph % (Auto) 4.2 L (21.8-53.1) % [place] % (Auto) 5.3 (5.3-12.2) % Eos % (Auto) 0.9 (0.8-7.0) Baso % (Auto) 0.1 (0.1-1.2) % Neut # (Auto) 12.88 H (1.78-5.38) K/mm3 Lymph # (Auto) 0.61 L (1.32-3.57) K/mm3 [place] # (Auto) 0.77 (0.30-0.82) K/mm3 Eos # (Auto) 0.13 (0.04-0.54) K/mm3 Baso # (Auto) 0.02 (0.01-0.08) K/mm3 Sodium 133 L (136-145) mEq/L Potassium 4.6 (3.5-5.1) mEq/L Chloride 98 (98-107) mEq/L Carbon Dioxide 29 (21-32) mEq/L Anion Gap 10.6 (5-15) BUN 27 H (7-18) mg/dL Creatinine 1.0 (0.7-1.3) mg/dL Est Cr Clr Drug Dosing 79.54 mL/min Estimated GFR (MDRD) > 60 (>60) mL/min BUN/Creatinine Ratio 27.0 H (14-18) Glucose 85 (70-99) mg/dL Calcium 8.2 L (8.5-10.1) mg/dL Phosphorus 3.8 (2.6-4.7) mg/dL Magnesium 2.1 (1.8-2.4) mg/dL Total Bilirubin 0.8 (0.2-1.0) mg/dL AST 23 (15-37) U/L ALT 48 (16-63) U/L Alkaline Phosphatase 175 H (46-116) U/L C-Reactive Protein 2.0 H* (<1.0) mg/dL Total Protein 5.5 L (6.4-8.2) g/dl Albumin 1.9 L (3.4-5.0) g/dl Globulin 3.6 gm/dL Albumin/Globulin Ratio 0.5 L (1-2) Med Orders - Current: Current Medications Acetaminophen (Acetaminophen 325 Mg Tab) 650 mg PO Q4H PRN PRN Reason: Pain (Mild 1-3)/fever Acetaminophen/Codeine Phosphate (Acetaminophen/Codeine 300-30 Mg Tab) 2 tab PO Q4H PRN PRN Reason: Chest Pain Last Admin: 12/01/20 23:02 Dose: 2 tab Documented by: Acetylcysteine (Acetylcysteine 20% 200 Mg/Ml 4 Ml Nebulizer Soln Sdv) 800 mg NEB QIDRT PRN PRN Reason: Shortness of Breath Last Admin: 12/01/20 17:11 Dose: 800 mg Documented by: Albuterol (Albuterol 6.7 Gm Inhaler) 0 gm INH Q2H PRN PRN Reason: Shortness of Breath Last Admin: 12/01/20 17:10 Dose: 2 inhalation Documented by: Albuterol/Ipratropium (Albuterol/Ipratropium 3.0-0.5 Mg/3 Ml Neb Soln) 3 ml NEB Q4H PRN PRN Reason: Shortness Of Breath/wheezing Last Admin: 12/02/20 08:32 Dose: 3 ml Documented by: Benzonatate (Benzonatate 100 Mg Cap) 200 mg PO Q8H PRN PRN Reason: Cough Last Admin: 12/01/20 20:43 Dose: 200 mg Documented by: Enoxaparin Sodium (Enoxaparin 80 Mg/0.8 Ml Syringe) 80 mg SUBCUT Q12H [facility] Last Admin: 12/02/20 09:01 Dose: 80 mg Documented by: Famotidine (Famotidine 20 Mg Tab) 20 mg PO BID [facility] Last Admin: 12/02/20 09:01 Dose: 20 mg Documented by: Guaifenesin (Guaifenesin 600 Mg Tab.Er) 600 mg PO TID [facility] Last Admin: 12/02/20 09:01 Dose: 600 mg Documented by: Hydroxyzine HCl (Hydroxyzine Hcl 50 Mg Tab) 50 mg PO Q8H PRN PRN Reason: Anxiety Last Admin: 12/02/20 07:41 Dose: 50 mg Documented by: Piperacillin Sod/Tazobactam (Sod 4.5 gm/ Sodium Chloride) 100 mls @ 25 mls/hr IV Q8HR [facility] Last Admin: 12/02/20 06:11 Dose: 25 mls/hr Documented by: Lorazepam (Lorazepam 1 Mg Tab) 1 mg PO Q4H PRN PRN Reason: Anxiety Last Admin: 11/28/20 21:55 Dose: 1 mg Documented by: Lorazepam (Lorazepam 2 Mg/Ml Sdv) 1 mg IVPUSH Q2H PRN PRN Reason: Anxiety Ondansetron HCl (Ondansetron 4 Mg/2 Ml Sdv) 4 mg IV Q6H PRN PRN Reason: Nausea/Vomiting Polyethylene Glycol (Polyethylene Glycol 3350 Powder 17 Gm Packet) 17 gm PO DAILY PRN PRN Reason: Constipation Discontinued Medications Dexamethasone (Dexamethasone 4 Mg Tab) 6 mg PO DAILY ADDA Stop: 12/02/20 09:01 Last Admin: 12/02/20 09:01 Dose: 6 mg Documented by: Enoxaparin Sodium (Enoxaparin 40 Mg/0.4 Ml Syringe) 40 mg SUBCUT DAILY [facility] Furosemide (Furosemide 20 Mg/2 Ml Vial) 20 mg IVPUSH NOW ONE Stop: 12/01/20 10:10 Last Admin: 12/01/20 11:11 Dose: 20 mg Documented by: Lactated Ringer's (Ringers, Lactated) 500 mls @ 250 mls/hr IV .BOLUS ONE Stop: 11/28/20 20:35 Last Admin: 11/28/20 18:45 Dose: 250 mls/hr Documented by: Sodium Chloride (Normal Saline) 100 mls @ 60 mls/min IV ASDIRECTED [facility] Last Admin: 11/28/20 20:03 Dose: 60 mls/min Documented by: Piperacillin Sod/Tazobactam (Sod 4.5 gm/ Sodium Chloride) 100 mls @ 200 mls/hr IV ONETIME ONE Stop: 11/28/20 21:41 Last Admin: 11/28/20 21:43 Dose: 200 mls/hr Documented by: Lactated Ringer's (Ringers, Lactated) 1,000 mls @ 125 mls/hr IV ASDIRECTED [facility] Last Admin: 11/28/20 21:52 Dose: 125 mls/hr Documented by: Tocilizumab 200 mg/Tocilizumab 400 mg/ Sodium Chloride 100 mls @ 100 mls/hr IV ONETIME ONE Stop: 11/29/20 09:59 Last Admin: 11/29/20 08:42 Dose: 100 mls/hr Documented by: Albumin Human 12.5 gm/ Premix 50 mls @ 50 mls/hr IV ONETIME ONE Stop: 12/01/20 11:14 Last Admin: 12/01/20 10:43 Dose: 50 mls/hr Documented by: Iopamidol (Iopamidol 755 Mg/Ml 100 Ml Bottle) 100 ml IVPUSH ONETIME ONE Stop: 11/28/20 20:02 Last Admin: 11/28/20 20:02 Dose: 100 ml Documented by: Lorazepam (Lorazepam 1 Mg Tab) 1 mg PO ONETIME ONE Stop: 11/28/20 16:41 Last Admin: 11/28/20 17:10 Dose: 1 mg Documented by: - Exam Quality Assessment: Supplemental Oxygen General: Alert HEENT: Pupils Equal, Mucous Membr. Moist/[place] Neck: Supple Lungs: Normal Respiratory Effort (Increased respiratory rate), Crackles (Bibasilar) Cardiovascular: Regular Rate, Regular Rhythm GI/Abdominal Exam: Normal Bowel Sounds, Soft, Non-Tender, No Distention Extremities: Normal Inspection, Normal Range of Motion, Non-Tender, No Pedal Edema, Normal Capillary Refill Skin: Warm, Dry, Intact Neurological: No New Focal Deficit Psy/Mental Status: Alert - Patient Data Lab Results Last 24 hrs: Laboratory Results - last 24 hr 12/02/20 12/02/20 Range/Units 04:44 04:44 WBC 14.66 H (4.23-9.07) K/mm3 RBC 4.30 L (4.63-6.08) M/mm3 Hgb 13.2 L (13.7-17.5) gm/dl Hct 39.8 L (40.1-51.0) % MCV 92.6 H (79.0-92.2) fl MCH 30.7 (25.7-32.2) pg MCHC 33.2 (32.2-35.5) g/dl RDW Std Deviation 42.0 (35.1-43.9) fL Plt Count 294 (163-337) K/mm3 MPV 11.1 (9.4-12.3) fl Neut % (Auto) 87.8 H (34.0-67.9) % Lymph % (Auto) 4.2 L (21.8-53.1) % [place] % (Auto) 5.3 (5.3-12.2) % Eos % (Auto) 0.9 (0.8-7.0) Baso % (Auto) 0.1 (0.1-1.2) % Neut # (Auto) 12.88 H (1.78-5.38) K/mm3 Lymph # (Auto) 0.61 L (1.32-3.57) K/mm3 [place] # (Auto) 0.77 (0.30-0.82) K/mm3 Eos # (Auto) 0.13 (0.04-0.54) K/mm3 Baso # (Auto) 0.02 (0.01-0.08) K/mm3 Sodium 133 L (136-145) mEq/L Potassium 4.6 (3.5-5.1) mEq/L Chloride 98 (98-107) mEq/L Carbon Dioxide 29 (21-32) mEq/L Anion Gap 10.6 (5-15) BUN 27 H (7-18) mg/dL Creatinine 1.0 (0.7-1.3) mg/dL Est Cr Clr Drug Dosing 79.54 mL/min Estimated GFR (MDRD) > 60 (>60) mL/min BUN/Creatinine Ratio 27.0 H (14-18) Glucose 85 (70-99) mg/dL Calcium 8.2 L (8.5-10.1) mg/dL Phosphorus 3.8 (2.6-4.7) mg/dL Magnesium 2.1 (1.8-2.4) mg/dL Total Bilirubin 0.8 (0.2-1.0) mg/dL AST 23 (15-37) U/L ALT 48 (16-63) U/L Alkaline Phosphatase 175 H (46-116) U/L C-Reactive Protein 2.0 H* (<1.0) mg/dL Total Protein 5.5 L (6.4-8.2) g/dl Albumin 1.9 L (3.4-5.0) g/dl Globulin 3.6 gm/dL Albumin/Globulin Ratio 0.5 L (1-2) Result Diagrams: 12/02/20 04:44 12/02/20 04:44 Sepsis Event Note - Evaluation Sepsis Screening Result: Severe Sepsis Risk - Focused Exam Vital Signs: Vital Signs Temp Pulse Resp BP Pulse Ox Pulse Ox 12/02/20 08:33 88 L 12/02/20 08:00 97.6 F 19 108/66 91 L 12/02/20 06:00 52 L 19 93 L 12/02/20 05:00 51 L 29 H 95 93 L 12/02/20 04:01 55 L 24 H 92 L 12/02/20 04:00 97.6 F 24 H 113/77 90 L 12/02/20 03:00 53 L 26 H 91 L 12/02/20 02:00 49 L 16 96 12/02/20 01:00 50 L 17 96 12/02/20 00:00 97.5 F 16 117/75 96 - Problem List & Annotations (1) Pneumonia due to COVID-19 virus SNOMED Code(s): 865309572125231067 Code(s): U07.1 - COVID-19; J12.82 - PNEUMONIA DUE TO CORONAVIRUS DISEASE 2019 Status: Acute Current Visit: Yes (2) Respiratory failure with hypoxia SNOMED Code(s): 79440091225420639 Code(s): J96.91 - RESPIRATORY FAILURE, UNSPECIFIED WITH HYPOXIA Status: Acu te Current Visit: Yes (3) Asthma SNOMED Code(s): 384072105 Code(s): J45.909 - UNSPECIFIED ASTHMA, UNCOMPLICATED Status: Acute Current Visit: Yes - Problem List Review Problem List Initiated/Reviewed/Updated: Yes - My Orders Last 24 Hours: My Active Orders 12/01/20 17:44 Renew/Continue Urinary Catheter [OM.PC] Routine 12/02/20 07:19 hydrOXYzine HCL [Atarax] 50 mg PO Q8H PRN 12/02/20 Lunch Regular Diet [DIET] 12/03/20 05:11 C-REACTIVE PROTEIN [CHEM] AM CBC WITH AUTO DIFF [HEME] AM CMP [COMPREHENSIVE METABOLIC PN,CMP] [CHEM] AM DD [D-DIMER QUANTITATIVE] [COAG] AM MAGNESIUM [CHEM] AM PHOSPHORUS [CHEM] AM - Plan Plan:: 60-year-old male with history of asthma transferred from [facility] with COVID-19 pneumonia and hypoxia COVID-19 pneumonia Respiratory failure * Admitted to [facility] on November 21, 2020 * Received Regeneron on or around November 17, 2020 * Worsening condition oxygenation over the last few days increasing need for high flow nasal cannula/noninvasive ventilation * Uses albuterol and Advair for asthma generally in the fall harvesting season * Has received 6 days of remdesivir and dexamethasone * Remdesivir stopped * Dexamethasone for total of 10 days * Azithromycin stopped * Received Actemra on 11/28/2020 * Procalcitonin 0.36 * CRP 19.1 * proBNP 199 suggesting very little cardiac dysfunction Left-sided subsegmental pulmonary emboli Small bilateral pleural effusions * CTA on 11/28/2020 * Start Lovenox 1 mg/kg twice daily on the night of 11/28/2020 Severe protein malnutrition * Albumin 1.5 * Duration of illness has made proper nutrition difficult. * Also decreased production of albumin secondary to severity of illness * Likely contributing to the small bilateral pleural effusions. 11/29/2020 Kavin continues to worsen overnight. He is on BiPAP at 100% FiO2. He has deve loped bilateral pulmonary emboli and is on Lovenox 1 mg/kg twice daily. Fortunately his lactic acidosis has improved, but he is still severely protein malnourished. Patient is now on BiPAP which will decrease his ability to take in nutrients. We will need to consider parenteral nutrition. Did discuss with the family that he is high risk for intubation. Patient is proning and having aggressive respiratory therapy. 11/30/2020 Oxygen saturations have improved and he is now on high flow nasal cannula at 60 L and 85%. He continues on Lovenox 1 mg/kg twice daily for his bilateral pulmonary emboli. His albumin continues to drop and is down to 1.4. Fortunately C-reactive protein is decreased from 19-12.1. White count is stable at 14 and likely secondary to steroids and not bacterial infection since his procalcitonin was less than 0.5. Encouraged him to increase protein intake. He still desats significantly when he does any movement. 12/01/2020 Patient has significant worsening of his condition today. He is back on BiPAP at 95%. Respiratory status has improved this afternoon. I discussed his condition with him and stated he may need to be intubated. At this time he does not want to be. We did place him on a transfer list, there are no beds available in [place] or the adjacent states. I share with him a significant concerns about worsening barotrauma on his lungs and fatigue. ABG was performed today which did show a good pH of 7.39, PCO2 of 44.3, low PO2 64, and bicarb of 26. Percent saturation was 90.5% which correlated with the pulse ox. Fortunately other factors including renal function and liver function was still very good. CRP is down to 4.8 and albumin increased a little bit to 1.6. We will try to give him albumin and Lasix to draw off any extra fluid from the interstitial space that we can. 12/02/2020 Patient is stable overnight and may be slightly better this afternoon. BiPAP has been weaned down to 85%. White count is 14.7, CRP is down to 2.0, albumin has increased to 1.9, kidney function is normal with a creatinine of 1.0, mild hyponatremia with sodium of 133. He is still drinking his protein shakes and is almost making his protein needs. Plan * ICU with strict isolation * FiO2 to keep SPO2 between 86 to 94%. Wean as tolerated. High flow nasal cannula * Hydroxyzine will be decreased to 25 mg p.o. as needed since the 50 mg seem to make him too sedated * Actemra on 11/28/2020 * Continue dexamethasone 6 mg p.o. for total of 10 days * Mucomyst for mucolytic as needed * DuoNeb every 2 hours as needed * Albuterol MDI 2 every 2 hours as needed * I-S and Acapella when able * Pepcid 20 mg twice daily * Monitor daily labs * We are now mainly monitoring his progress and hopes that his lungs will recover. * VTE treatment with Lovenox * CODE STATUS: Full code and daughter and gave him a update on his condition.
[2020-12-03] MEDS: Piperacillin/Tazobactam 4.5 GM in Sodium Chloride 0.9% 100 ML IV SCH ×3 (02:10→18:22)
[2020-12-03] MEDS: Albuterol 6.7 GM Inhaler INH PRN (06:07)
[2020-12-03] MEDS: Albuterol/Ipratropium 3.0-0.5 MG/3 ML Neb Soln NEB PRN ×2 (07:44→19:54)
[2020-12-03] MEDS: Acetylcysteine 20% 200 MG/ML 4 ML Nebulizer Soln SDV NEB PRN (07:44)
[2020-12-03] MEDS ORDERED: Piperacillin/Tazobactam 4.5 GM AdvVial ONE (08:36)
[2020-12-03] MEDS: Famotidine 20 MG Tab PO SCH ×2 (08:46→21:16)
[2020-12-03] MEDS: Enoxaparin 80 MG/0.8 ML Syringe SUBCUT SCH ×2 (08:46→21:17)
[2020-12-03] MEDS: guaiFENesin 600 MG Tab.ER PO SCH ×3 (08:46→21:17)
[2020-12-03] MEDS ORDERED: Oxymetazoline 0.05% Nasal Spray 30 ML Bottle NAS PRN (10:46)
[2020-12-03] MEDS: hydrOXYzine HCl 25 MG Tab PO PRN (11:01)
[2020-12-03] MEDS: Loratadine 10 MG Tab PO SCH (11:01)
--- NOTE | 2020-12-03 13:24 | PCM.PN ---
- General Info Date of Service: 12/03/20 Admission Dx/Problem (Free Text): Admission Diagnosis/Problem Admission Diagnosis/Problem Hypoxia Subjective Update: Patient had a improved night last night. He states he is feeling a little bit better. He was able to use high flow nasal cannula last night and part of this morning, but he is back on BiPAP now. Patient does state his nose seems to be plugged up and is making it difficult for him to breathe through his nose when he has a nasal cannula. - Patient Data Vitals - Most Recent: Last Vital Signs Temp 97.9 F 12/03/20 12:00 Pulse 52 L 12/02/20 06:00 Resp 26 H 12/03/20 12:00 BP 118/50 L 12/03/20 12:00 Pulse Ox 86 L 12/03/20 12:00 Weight - Most Recent: 171 lb 9.6 oz I&O - Last 24 Hours: Intake & Output 12/02/20 12/03/20 12/03/20 22:59 06:59 14:59 Intake Total 1110 1480 1020 Output Total 425 2040 800 Balance 685 -560 220 Lab Results Last 24 Hours: Laboratory Results - last 24 hr 12/03/20 12/03/20 12/03/20 Range/Units 05:30 05:30 05:30 WBC 17.24 H (4.23-9.07) K/mm3 RBC 4.39 L (4.63-6.08) M/mm3 Hgb 13.3 L (13.7-17.5) gm/dl Hct 40.8 (40.1-51.0) % MCV 92.9 H (79.0-92.2) fl MCH 30.3 (25.7-32.2) pg MCHC 32.6 (32.2-35.5) g/dl RDW Std Deviation 42.4 (35.1-43.9) fL Plt Count 292 (163-337) K/mm3 MPV 11.0 (9.4-12.3) fl Neut % (Auto) 86.2 H (34.0-67.9) % Lymph % (Auto) 4.5 L (21.8-53.1) % Chambers % (Auto) 5.6 (5.3-12.2) % Eos % (Auto) 1.3 (0.8-7.0) Baso % (Auto) 0.1 (0.1-1.2) % Neut # (Auto) 14.86 H (1.78-5.38) K/mm3 Lymph # (Auto) 0.78 L (1.32-3.57) K/mm3 Chambers # (Auto) 0.96 H (0.30-0.82) K/mm3 Eos # (Auto) 0.23 (0.04-0.54) K/mm3 Baso # (Auto) 0.02 (0.01-0.08) K/mm3 D-Dimer, Quantitative 9.77 H (0.19-0.50) mg/L Sodium 134 L (136-145) mEq/L Potassium 4.8 (3.5-5.1) mEq/L Chloride 98 (98-107) mEq/L Carbon Dioxide 31 (21-32) mEq/L Anion Gap 9.8 (5-15) BUN 27 H (7-18) mg/dL Creatinine 1.0 (0.7-1.3) mg/dL Est Cr Clr Drug Dosing 79.54 mL/min Estimated GFR (MDRD) > 60 (>60) mL/min BUN/Creatinine Ratio 27.0 H (14-18) Glucose 92 (70-99) mg/dL Calcium 8.2 L (8.5-10.1) mg/dL Phosphorus 3.5 (2.6-4.7) mg/dL Magnesium 2.2 (1.8-2.4) mg/dL Total Bilirubin 0.5 (0.2-1.0) mg/dL AST 28 (15-37) U/L ALT 42 (16-63) U/L Alkaline Phosphatase 164 H (46-116) U/L C-Reactive Protein 0.8 (<1.0) mg/dL Total Protein 5.3 L (6.4-8.2) g/dl Albumin 1.9 L (3.4-5.0) g/dl Globulin 3.4 gm/dL Albumin/Globulin Ratio 0.6 L (1-2) Med Orders - Current: Current Medications Acetaminophen (Acetaminophen 325 Mg Tab) 650 mg PO Q4H PRN PRN Reason: Pain (Mild 1-3)/fever Acetaminophen/Codeine Phosphate (Acetaminophen/Codeine 300-30 Mg Tab) 2 tab PO Q4H PRN PRN Reason: Chest Pain Last Admin: 12/01/20 23:02 Dose: 2 tab Documented by: Acetylcysteine (Acetylcysteine 20% 200 Mg/Ml 4 Ml Nebulizer Soln Sdv) 800 mg NEB QIDRT PRN PRN Reason: Shortness of Breath Last Admin: 12/03/20 07:44 Dose: 800 mg Documented by: Albuterol (Albuterol 6.7 Gm Inhaler) 0 gm INH Q2H PRN PRN Reason: Shortness of Breath Last Admin: 12/03/20 06:07 Dose: 2 inhalation Documented by: Albuterol/Ipratropium (Albuterol/Ipratropium 3.0-0.5 Mg/3 Ml Neb Soln) 3 ml NEB Q4H PRN PRN Reason: Shortness Of Breath/wheezing Last Admin: 12/03/20 07:44 Dose: 3 ml Documented by: Benzonatate (Benzonatate 100 Mg Cap) 200 mg PO Q8H PRN PRN Reason: Cough Last Admin: 12/01/20 20:43 Dose: 200 mg Documented by: Enoxaparin Sodium (Enoxaparin 80 Mg/0.8 Ml Syringe) 80 mg SUBCUT Q12H [facility] Last Admin: 12/03/20 08:46 Dose: 80 mg Documented by: Famotidine (Famotidine 20 Mg Tab) 20 mg PO BID [facility] Last Admin: 12/03/20 08:46 Dose: 20 mg Documented by: Furosemide (Furosemide 40 Mg/4 Ml Vial) 20 mg IVPUSH NOW ONE Stop: 12/03/20 13:13 Guaifenesin (Guaifenesin 600 Mg Tab.Er) 600 mg PO TID [facility] Last Admin: 12/03/20 08:46 Dose: 600 mg Documented by: Hydroxyzine HCl (Hydroxyzine Hcl 25 Mg Tab) 25 mg PO Q6H PRN PRN Reason: Anxiety Last Admin: 12/03/20 11:01 Dose: 25 mg Documented by: Piperacillin Sod/Tazobactam (Sod 4.5 gm/ Sodium Chloride) 100 mls @ 25 mls/hr IV Q8H [facility] Last Admin: 12/03/20 11:01 Dose: 25 mls/hr Documented by: Loratadine (Loratadine 10 Mg Tab) 10 mg PO DAILY [facility] Last Admin: 12/03/20 11:01 Dose: 10 mg Documented by: Lorazepam (Lorazepam 1 Mg Tab) 1 mg PO Q4H PRN PRN Reason: Anxiety Last Admin: 11/28/20 21:55 Dose: 1 mg Documented by: Lorazepam (Lorazepam 2 Mg/Ml Sdv) 1 mg IVPUSH Q2H PRN PRN Reason: Anxiety Ondansetron HCl (Ondansetron 4 Mg/2 Ml Sdv) 4 mg IV Q6H PRN PRN Reason: Nausea/Vomiting Oxymetazoline HCl (Oxymetazoline 0.05% Nasal [place] 30 Ml Bottle) 0 ml BREANNA Q12H PRN PRN Reason: Rhinitis Polyethylene Glycol (Polyethylene Glycol 3350 Powder 17 Gm Packet) 17 gm PO DAILY PRN PRN Reason: Constipation Discontinued Medications Dexamethasone (Dexamethasone 4 Mg Tab) 6 mg PO DAILY DADA Stop: 12/02/20 09:01 Last Admin: 12/02/20 09:01 Dose: 6 mg Documented by: Enoxaparin Sodium (Enoxaparin 40 Mg/0.4 Ml Syringe) 40 mg SUBCUT DAILY [facility] Furosemide (Furosemide 20 Mg/2 Ml Vial) 20 mg IVPUSH NOW ONE Stop: 12/01/20 10:10 Last Admin: 12/01/20 11:11 Dose: 20 mg Documented by: Hydroxyzine HCl (Hydroxyzine Hcl 50 Mg Tab) 50 mg PO Q8H PRN PRN Reason: Anxiety Last Admin: 12/02/20 07:41 Dose: 50 mg Documented by: Lactated Ringer's (Ringers, Lactated) 500 mls @ 250 mls/hr IV .BOLUS ONE Stop: 11/28/20 20:35 Last Admin: 11/28/20 18:45 Dose: 250 mls/hr Documented by: Sodium Chloride (Normal Saline) 100 mls @ 60 mls/min IV ASDIRECTED [facility] Last Admin: 11/28/20 20:03 Dose: 60 mls/min Documented by: Piperacillin Sod/Tazobactam (Sod 4.5 gm/ Sodium Chloride) 100 mls @ 200 mls/hr IV ONETIME ONE Stop: 11/28/20 21:41 Last Admin: 11/28/20 21:43 Dose: 200 mls/hr Documented by: Lactated Ringer's (Ringers, Lactated) 1,000 mls @ 125 mls/hr IV ASDIRECTED [facility] Last Admin: 11/28/20 21:52 Dose: 125 mls/hr Documented by: Piperacillin Sod/Tazobactam (Sod 4.5 gm/ Sodium Chloride) 100 mls @ 25 mls/hr IV Q8HR [facility] Last Admin: 12/02/20 14:00 Dose: Not Given Documented by: Tocilizumab 200 mg/Tocilizumab 400 mg/ Sodium Chloride 100 mls @ 100 mls/hr IV ONETIME ONE Stop: 11/29/20 09:59 Last Admin: 11/29/20 08:42 Dose: 100 mls/hr Documented by: Albumin Human 12.5 gm/ Premix 50 mls @ 50 mls/hr IV ONETIME ONE Stop: 12/01/20 11:14 Last Admin: 12/01/20 10:43 Dose: 50 mls/hr Documented by: Iopamidol (Iopamidol 755 Mg/Ml 100 Ml Bottle) 100 ml IVPUSH ONETIME ONE Stop: 11/28/20 20:02 Last Admin: 11/28/20 20:02 Dose: 100 ml Documented by: Lorazepam (Lorazepam 1 Mg Tab) 1 mg PO ONETIME ONE Stop: 11/28/20 16:41 Last Admin: 11/28/20 17:10 Dose: 1 mg Documented by: Piperacillin Sod/Tazobactam Sod (Piperacillin/Tazobactam 4.5 Gm Advvial) Confirm Administered Dose 4.5 gm .ROUTE .STK-MED ONE Stop: 12/03/20 08:37 Last Admin: 12/03/20 08:47 Dose: Not Given Documented by: - Exam Quality Assessment: Supplemental Oxygen General: Alert, Oriented HEENT: Pupils Equal, Mucous Membr. Moist/[place] Neck: Supple Lungs: Crackles (Throughout both lung [place]ley). No: Normal Respiratory Effort (Increased rate) Cardiovascular: Regular Rate, Regular Rhythm GI/Abdominal Exam: Normal Bowel Sounds, Soft, Non-Tender, No Distention Extremities: Normal Inspection, No Pedal Edema, Normal Capillary Refill Skin: Warm, Dry, Intact Psy/Mental Status: Alert - Patient Data Lab Results Last 24 hrs: Laboratory Results - last 24 hr 12/03/20 12/03/20 12/03/20 Range/Units 05:30 05:30 05:30 WBC 17.24 H (4.23-9.07) K/mm3 RBC 4.39 L (4.63-6.08) M/mm3 Hgb 13.3 L (13.7-17.5) gm/dl Hct 40.8 (40.1-51.0) % MCV 92.9 H (79.0-92.2) fl MCH 30.3 (25.7-32.2) pg MCHC 32.6 (32.2-35.5) g/dl RDW Std Deviation 42.4 (35.1-43.9) fL Plt Count 292 (163-337) K/mm3 MPV 11.0 (9.4-12.3) fl Neut % (Auto) 86.2 H (34.0-67.9) % Lymph % (Auto) 4.5 L (21.8-53.1) % Chambers % (Auto) 5.6 (5.3-12.2) % Eos % (Auto) 1.3 (0.8-7.0) Baso % (Auto) 0.1 (0.1-1.2) % Neut # (Auto) 14.86 H (1.78-5.38) K/mm3 Lymph # (Auto) 0.78 L (1.32-3.57) K/mm3 Chambers # (Auto) 0.96 H (0.30-0.82) K/mm3 Eos # (Auto) 0.23 (0.04-0.54) K/mm3 Baso # (Auto) 0.02 (0.01-0.08) K/mm3 D-Dimer, Quantitative 9.77 H (0.19-0.50) mg/L Sodium 134 L (136-145) mEq/L Potassium 4.8 (3.5-5.1) mEq/L Chloride 98 (98-107) mEq/L Carbon Dioxide 31 (21-32) mEq/L Anion Gap 9.8 (5-15) BUN 27 H (7-18) mg/dL Creatinine 1.0 (0.7-1.3) mg/dL Est Cr Clr Drug Dosing 79.54 mL/min Estimated GFR (MDRD) > 60 (>60) mL/min BUN/Creatinine Ratio 27.0 H (14-18) Glucose 92 (70-99) mg/dL Calcium 8.2 L (8.5-10.1) mg/dL Phosphorus 3.5 (2.6-4.7) mg/dL Magnesium 2.2 (1.8-2.4) mg/dL Total Bilirubin 0.5 (0.2-1.0) mg/dL AST 28 (15-37) U/L ALT 42 (16-63) U/L Alkaline Phosphatase 164 H (46-116) U/L C-Reactive Protein 0.8 (<1.0) mg/dL Total Protein 5.3 L (6.4-8.2) g/dl Albumin 1.9 L (3.4-5.0) g/dl Globulin 3.4 gm/dL Albumin/Globulin Ratio 0.6 L (1-2) Result Diagrams: 12/03/20 05:30 12/03/20 05:30 Sepsis Event Note - Evaluation Sepsis Screening Result: Possible Sepsis Risk - Focused Exam Vital Signs: Vital Signs Temp Resp BP Pulse Ox Pulse Ox Pulse Ox 12/03/20 12:00 97.9 F 26 H 118/50 L 86 L 12/03/20 08:00 97.9 F 22 H 121/62 91 L 12/03/20 07:46 85 L 12/03/20 06:07 89 L 12/03/20 06:00 93 L 12/03/20 04:00 97.5 F 25 H 92/60 94 L 12/03/20 01:34 96 - Problem List & Annotations (1) Pneumonia due to COVID-19 virus SNOMED Code(s): 527051236534488588 Code(s): U07.1 - COVID-19; J12.82 - PNEUMONIA DUE TO CORONAVIRUS DISEASE 2019 Status: Acute Current Visit: Yes (2) Respiratory failure with hypoxia SNOMED Code(s): 91043351100239952 Code(s): J96.91 - RESPIRATORY FAILURE, UNSPECIFIED WITH HYPOXIA Status: Acute Current Visit: Yes (3) Asthma SNOMED Code(s): 630984387 Code(s): J45.909 - UNSPECIFIED ASTHMA, UNCOMPLICATED Status: Acute Current Visit: Yes - Problem List Review Problem List Initiated/Reviewed/Updated: Yes - My Orders Last 24 Hours: My Active Orders 12/02/20 16:15 hydrOXYzine HCL [Atarax] 25 mg PO Q6H PRN 12/02/20 18:00 Piperacillin/Tazobactam [Piperacil-Tazobact] 4.5 gm Sodium Chloride 0.9% [Normal Saline] 100 ml IV Q8H 12/03/20 09:03 Renew/Continue Urinary Catheter [OM.PC] Routine 12/03/20 10:45 Loratadine [Claritin] 10 mg PO DAILY 12/03/20 10:46 Oxymetazoline [Nasal Decongestant [place]] 0 ml BREANNA Q12H PRN 12/03/20 13:12 Furosemide [Lasix] 20 mg IVPUSH NOW ONE - Plan Plan:: 60-year-old male with history of asthma transferred from [facility] with COVID-19 pneumonia and hypoxia COVID-19 pneumonia Respiratory failure * Admitted to [facility] on November 21, 2020 * Received Regeneron on or around November 17, 2020 * Worsening condition oxygenation over the last few days increasing need for high flow nasal cannula/noninvasive ventilation * Uses albuterol and Advair for asthma generally in the fall harvesting season * Has received 6 days of remdesivir and dexamethasone * Remdesivir stopped * Dexamethasone for total of 10 days * Azithromycin stopped * Received Actemra on 11/28/2020 * Procalcitonin 0.36 * CRP 19.1 * proBNP 199 suggesting very little cardiac dysfunction Left-sided subsegmental pulmonary emboli Small bilateral pleural effusions * CTA on 11/28/2020 * Start Lovenox 1 mg/kg twice daily on the night of 11/28/2020 Severe protein malnutrition * Albumin 1.5 * Duration of illness has made proper nutrition difficult. * Also decreased production of albumin secondary to severity of illness * Likely contributing to the small bilateral pleural effusions. 11/29/2020 Kavin continues to worsen overnight. He is on BiPAP at 100% FiO2. He has developed bilateral pulmonary emboli and is on Lovenox 1 mg/kg twice daily. Fortunately his lactic acidosis has improved, but he is still severely protein malnourished. Patient is now on BiPAP which will decrease his ability to take in nutrients. We will need to consider parenteral nutrition. Did discuss with the family that he is high risk for intubation. Patient is proning and having aggressive respiratory therapy. 11/30/2020 Oxygen saturations have improved and he is now on high flow nasal cannula at 60 L and 85%. He continues on Lovenox 1 mg/kg twice daily for his bilateral pul monary emboli. His albumin continues to drop and is down to 1.4. Fortunately C-reactive protein is decreased from 19-12.1. White count is stable at 14 and likely secondary to steroids and not bacterial infection since his procalcitonin was less than 0.5. Encouraged him to increase protein intake. He still desats significantly when he does any movement. 12/01/2020 Patient has significant worsening of his condition today. He is back on BiPAP at 95%. Respiratory status has improved this afternoon. I discussed his condition with him and stated he may need to be intubated. At this time he does not want to be. We did place him on a transfer list, there are no beds available in [place] or the adjacent [facility]. I share with him a significant concerns about worsening barotrauma on his lungs and fatigue. ABG was performed today which did show a good pH of 7.39, PCO2 of 44.3, low PO2 64, and bicarb of 26. Percent saturation was 90.5% which correlated with the pulse ox. Fortunately other factors including renal function and liver function was still very good. CRP is down to 4.8 and albumin increased a little bit to 1.6. We will try to give him albumin and Lasix to draw off any extra fluid from the interstitial space that we can. 12/02/2020 Patient is stable overnight and may be slightly better this afternoon. BiPAP has been weaned down to 85%. White count is 14.7, CRP is down to 2.0, albumin has increased to 1.9, kidney function is normal with a creatinine of 1.0, mild h yponatremia with sodium of 133. He is still drinking his protein shakes and is almost making his protein needs. 12/03/2020 Patient has made no real improvement overnight. He continues on BiPAP 12/12 with 15 L/min bled in. This is a different BiPAP than he was on yesterday which had specific FiO2. White count increased a little back up to 17, CRP dropped to normal at 0.8, albumin was stable at 1.9, creatinine was 1.0. Labs were essentially stable. He is on full dose Lovenox for his pulmonary emboli. Patient does complain of nasal congestion. He thinks this is causing him to have difficulty breathing through his nose. He continues on Zosyn day 5 for presumed pneumonia. Plan * ICU with strict isolation * FiO2 to keep SPO2 between 86 to 94%. Wean as tolerated. High flow nasal cannula * Afrin, Claritin, and [place] for nasal congestion. * Hydroxyzine 25 mg p.o. as needed for anxiety * Actemra on 11/28/2020 * Completed 10 days of dexamethasone * Day 5 of Zosyn will complete a 7-day course. * Mucomyst for mucolytic as needed * DuoNeb every 2 hours as needed * Albuterol MDI 2 every 2 hours as needed * I-S and Acapella when able * Pepcid 20 mg twice daily * Monitor daily labs * We are now mainly monitoring his progress and hopes that his lungs will recover. * VTE treatment with Lovenox * CODE STATUS: Full code updated on his condition.
[2020-12-03] MEDS ORDERED: Furosemide 20 MG/2 ML VIAL IVPUSH ONE (13:30)
[2020-12-03] MEDS: Acetaminophen/Codeine 300-30 MG Tab PO PRN (23:07)
[2020-12-04] MEDS: Piperacillin/Tazobactam 4.5 GM in Sodium Chloride 0.9% 100 ML IV SCH ×3 (01:14→17:29)
[2020-12-04] MEDS: Acetylcysteine 20% 200 MG/ML 4 ML Nebulizer Soln SDV NEB PRN (08:30)
[2020-12-04] MEDS: Loratadine 10 MG Tab PO SCH (09:25)
[2020-12-04] MEDS: guaiFENesin 600 MG Tab.ER PO SCH ×3 (09:25→20:00)
[2020-12-04] MEDS: hydrOXYzine HCl 25 MG Tab PO PRN ×2 (09:25→20:00)
[2020-12-04] MEDS: Enoxaparin 80 MG/0.8 ML Syringe SUBCUT SCH ×2 (09:25→20:54)
[2020-12-04] MEDS: Famotidine 20 MG Tab PO SCH ×2 (09:25→20:00)
--- NOTE | 2020-12-04 13:26 | PCM.PN ---
- General Info Date of Service: 12/04/20 Admission Dx/Problem (Free Text): Admission Diagnosis/Problem Admission Diagnosis/Problem Hypoxia Subjective Update: Patient became anxious last night and was given Ativan. That unfortunate made him very confused and worsened his condition. Once he was settled down he was able to tolerate BiPAP. Patient did fairly well overnight on BiPAP. Unfortunate this morning, he did not tolerate high flow nasal cannula. He was placed back on BiPAP. While he was on high flow and for approximate hour after being replaced on BiPAP his oxygen saturations were in the low 80s. I discussed with him the need for intubation and he again said he did not want to be intubated. I asked him specifically at what point when he agreed to intubation and he said he was scared. At this time he still wants to be a full code, but wants to delay intubation for as long as possible. I did try to explain to them that delaying intubation could make it harder for him to recover. - Review of Systems General: Reports: Fatigue Pulmonary: Reports: Shortness of Breath, Cough Cardiovascular: Reports: Dyspnea on Exertion - Patient Data Vitals - Most Recent: Last Vital Signs Temp 96.9 F 12/04/20 04:00 Pulse 68 12/04/20 12:00 Resp 24 H 12/04/20 12:00 BP 118/50 L 12/04/20 12:00 Pulse Ox 87 L 12/04/20 12:00 Weight - Most Recent: 173 lb 3.2 oz I&O - Last 24 Hours: Intake & Output 12/03/20 12/04/20 12/04/20 22:59 06:59 14:59 Intake Total 2220 825 300 Output Total 1685 1485 1425 Balance 535 660 -1125 Jamal Results Last 24 Hours: Microbiology 11/28/20 17:30 Blood Culture - Final Blood - Venous - Lab Draw 11/28/20 17:23 Blood Culture - Final Blood - Venous Med Orders - Current: Current Medications Acetaminophen (Acetaminophen 325 Mg Tab) 650 mg PO Q4H PRN PRN Reason: Pain (Mild 1-3)/fever Acetaminophen/Codeine Phosphate (Acetaminophen/Codeine 300-30 Mg Tab) 2 tab PO Q4H PRN PRN Reason: Chest Pain Last Admin: 12/03/20 23:07 Dose: 2 tab Documented by: Acetylcysteine (Acetylcysteine 20% 200 Mg/Ml 4 Ml Nebulizer Soln Sdv) 800 mg NEB QIDRT PRN PRN Reason: Shortness of Breath Last Admin: 12/04/20 08:30 Dose: 800 mg Documented by: Albuterol (Albuterol 6.7 Gm Inhaler) 0 gm INH Q2H PRN PRN Reason: Shortness of Breath Last Admin: 12/03/20 06:07 Dose: 2 inhalation Documented by: Albuterol/Ipratropium (Albuterol/Ipratropium 3.0-0.5 Mg/3 Ml Neb Soln) 3 ml NEB Q4H PRN PRN Reason: Shortness Of Breath/wheezing Last Admin: 12/03/20 19:54 Dose: 3 ml Documented by: Benzonatate (Benzonatate 100 Mg Cap) 200 mg PO Q8H PRN PRN Reason: Cough Last Admin: 12/01/20 20:43 Dose: 200 mg Documented by: Enoxaparin Sodium (Enoxaparin 80 Mg/0.8 Ml Syringe) 80 mg SUBCUT Q12H [facility] Last Admin: 12/04/20 09:25 Dose: 80 mg Documented by: Famotidine (Famotidine 20 Mg Tab) 20 mg PO BID [facility] Last Admin: 12/04/20 09:25 Dose: 20 mg Documented by: Guaifenesin (Guaifenesin 600 Mg Tab.Er) 600 mg PO TID [facility] Last Admin: 12/04/20 09:25 Dose: 600 mg Documented by: Hydroxyzine HCl (Hydroxyzine Hcl 25 Mg Tab) 25 mg PO Q6H PRN PRN Reason: Anxiety Last Admin: 12/04/20 09:25 Dose: 25 mg Documented by: Piperacillin Sod/Tazobactam (Sod 4.5 gm/ Sodium Chloride) 100 mls @ 25 mls/hr IV Q8H [facility] Stop: 12/05/20 18:01 Last Admin: 12/04/20 11:11 Dose: 25 mls/hr Documented by: Loratadine (Loratadine 10 Mg Tab) 10 mg PO DAILY [facility] Last Admin: 12/04/20 09:25 Dose: 10 mg Documented by: Ondansetron HCl (Ondansetron 4 Mg/2 Ml Sdv) 4 mg IV Q6H PRN PRN Reason: Nausea/Vomiting Oxymetazoline HCl (Oxymetazoline 0.05% Nasal [place] 30 Ml Bottle) 0 ml BREANNA Q12H PRN PRN Reason: Rhinitis Last Admin: 12/03/20 15:44 Dose: 2 spray Documented by: Polyethylene Glycol (Polyethylene Glycol 3350 Powder 17 Gm Packet) 17 gm PO DAILY PRN PRN Reason: Constipation Discontinued Medications Dexamethasone (Dexamethasone 4 Mg Tab) 6 mg PO DAILY DADA Stop: 12/02/20 09:01 Last Admin: 12/02/20 09:01 Dose: 6 mg Documented by: Enoxaparin Sodium (Enoxaparin 40 Mg/0.4 Ml Syringe) 40 mg SUBCUT DAILY [facility] Furosemide (Furosemide 20 Mg/2 Ml Vial) 20 mg IVPUSH NOW ONE Stop: 12/01/20 10:10 Last Admin: 12/01/20 11:11 Dose: 20 mg Documented by: Furosemide (Furosemide 20 Mg/2 Ml Vial) 20 mg IVPUSH NOW ONE Stop: 12/03/20 13:31 Last Admin: 12/03/20 14:01 Dose: 20 mg Documented by: Hydroxyzine HCl (Hydroxyzine Hcl 50 Mg Tab) 50 mg PO Q8H PRN PRN Reason: Anxiety Last Admin: 12/02/20 07:41 Dose: 50 mg Documented by: Lactated Ringer's (Ringers, Lactated) 500 mls @ 250 mls/hr IV .BOLUS ONE Stop: 11/28/20 20:35 Last Admin: 11/28/20 18:45 Dose: 250 mls/hr Documented by: Sodium Chloride (Normal Saline) 100 mls @ 60 mls/min IV ASDIRECTED [facility] Last Admin: 11/28/20 20:03 Dose: 60 mls/min Documented by: Piperacillin Sod/Tazobactam (Sod 4.5 gm/ Sodium Chloride) 100 mls @ 200 mls/hr IV ONETIME ONE Stop: 11/28/20 21:41 Last Admin: 11/28/20 21:43 Dose: 200 mls/hr Documented by: Lactated Ringer's (Ringers, Lactated) 1,000 mls @ 125 mls/hr IV ASDIRECTED [facility] Last Admin: 11/28/20 21:52 Dose: 125 mls/hr Documented by: Piperacillin Sod/Tazobactam (Sod 4.5 gm/ Sodium Chloride) 100 mls @ 25 mls/hr IV Q8HR DADA Last Admin: 12/02/20 14:00 Dose: Not Given Documented by: Tocilizumab 200 mg/Tocilizumab 400 mg/ Sodium Chloride 100 mls @ 100 mls/hr IV ONETIME ONE Stop: 11/29/20 09:59 Last Admin: 11/29/20 08:42 Dose: 100 mls/hr Documented by: Albumin Human 12.5 gm/ Premix 50 mls @ 50 mls/hr IV ONETIME ONE Stop: 12/01/20 11:14 Last Admin: 12/01/20 10:43 Dose: 50 mls/hr Documented by: Iopamidol (Iopamidol 755 Mg/Ml 100 Ml Bottle) 100 ml IVPUSH ONETIME ONE Stop: 11/28/20 20:02 Last Admin: 11/28/20 20:02 Dose: 100 ml Documented by: Lorazepam (Lorazepam 1 Mg Tab) 1 mg PO ONETIME ONE Stop: 11/28/20 16:41 Last Admin: 11/28/20 17:10 Dose: 1 mg Documented by: Lorazepam (Lorazepam 1 Mg Tab) 1 mg PO Q4H PRN PRN Reason: Anxiety Last Admin: 11/28/20 21:55 Dose: 1 mg Documented by: Lorazepam (Lorazepam 2 Mg/Ml Sdv) 1 mg IVPUSH Q2H PRN PRN Reason: Anxiety Last Admin: 12/03/20 19:36 Dose: 1 mg Documented by: Piperacillin Sod/Tazobactam Sod (Piperacillin/Tazobactam 4.5 Gm Advvial) Confirm Administered Dose 4.5 gm .ROUTE .STK-MED ONE Stop: 12/03/20 08:37 Last Admin: 12/03/20 08:47 Dose: Not Given Documented by: - Exam Quality Assessment: Supplemental Oxygen General: Alert, Oriented HEENT: Pupils Equal, Mucous Membr. Moist/[place] Lungs: Crackles (Crackles throughout both lung tilley worse in the bases). No: Normal Respiratory Effort (Increased respiratory rate and effort) Cardiovascular: Regular Rate, Regular Rhythm GI/Abdominal Exam: Normal Bowel Sounds, Soft, Non-Tender, No Distention Extremities: Normal Inspection, No Pedal Edema, Normal Capillary Refill Skin: Warm, Dry, Intact Psy/Mental Status: Alert, Normal Affect, Normal Mood - Patient Data Result Diagrams: 12/03/20 05:30 12/03/20 05:30 Jamal Results Last 24 hrs: Microbiology 11/28/20 17:30 Blood Culture - Final Blood - Venous - Lab Draw 11/28/20 17:23 Blood Culture - Final Blood - Venous Sepsis Event Note - Evaluation Sepsis Screening Result: Possible Sepsis Risk - Focused Exam Vital Signs: Vital Signs Temp Pulse Resp BP Pulse Ox Pulse Ox 12/04/20 12:00 68 24 H 118/50 L 87 L 12/04/20 08:40 81 L 12/04/20 08:00 68 22 H 121/68 88 L 12/04/20 06:00 89 L 12/04/20 04:00 96.9 F 28 H 99/66 89 L - Problem List & Annotations (1) Pneumonia due to COVID-19 virus SNOMED Code(s): 803062411308024700 Code(s): U07.1 - COVID-19; J12.82 - PNEUMONIA DUE TO CORONAVIRUS DISEASE 2019 Status: Acute Current Visit: Yes (2) Respiratory failure with hypoxia SNOMED Code(s): 71508554157192089 Code(s): J96.91 - RESPIRATORY FAILURE, UNSPECIFIED WITH HYPOXIA Status: Acute Current Visit: Yes (3) Asthma SNOMED Code(s): 595232665 Code(s): J45.909 - UNSPECIFIED ASTHMA, UNCOMPLICATED Status: Acute Current Visit: Yes - Problem List Review Problem List Initiated/Reviewed/Updated: Yes - Plan Plan:: 60-year-old male with history of asthma transferred from [facility] with COVID-19 pneumonia and hypoxia COVID-19 pneumonia Respiratory failure * Admitted to [facility] on November 21, 2020 * Received Regeneron on or around November 17, 2020 * Worsening condition oxygenation over the last few days increasing need for high flow nasal cannula/noninvasive ventilation * Uses albuterol and Advair for asthma generally in the fall harvesting season * Has received 6 days of remdesivir and dexamethasone * Remdesivir stopped * Dexamethasone for total of 10 days * Azithromycin stopped * Received Actemra on 11/28/2020 * Procalcitonin 0.36 * CRP 19.1 * proBNP 199 suggesting very little cardiac dysfunction Left-sided subsegmental pulmonary emboli Small bilateral pleural effusions * CTA on 11/28/2020 * Start Lovenox 1 mg/kg twice daily on the night of 11/28/2020 Severe protein malnutrition * Albumin 1.5 * Duration of illness has made proper nutrition difficult. * Also decreased production of albumin secondary to severity of illness * Likely contributing to the small bilateral pleural effusions. 11/29/2020 Kavin continues to worsen overnight. He is on BiPAP at 100% FiO2. He has developed bilateral pulmonary emboli and is on Lovenox 1 mg/kg twice daily. F ortunately his lactic acidosis has improved, but he is still severely protein malnourished. Patient is now on BiPAP which will decrease his ability to take in nutrients. We will need to consider parenteral nutrition. Did discuss with the family that he is high risk for intubation. Patient is proning and having aggressive respiratory therapy. 11/30/2020 Oxygen saturations have improved and he is now on high flow nasal cannula at 60 L and 85%. He continues on Lovenox 1 mg/kg twice daily for his bilateral pulmonary emboli. His albumin continues to drop and is down to 1.4. Fortunately C-reactive protein is decreased from 19-12.1. White count is stable at 14 and likely secondary to steroids and not bacterial infection since his procalcitonin was less than 0.5. Encouraged him to increase protein intake. He still desats significantly when he does any movement. 12/01/2020 Patient has significant worsening of his condition today. He is back on BiPAP at 95%. Respiratory status has improved this afternoon. I discussed his condition with him and stated he may need to be intubated. At this time he does not want to be. We did place him on a transfer list, there are no beds available in [place] or the adjacent states. I share with him a significant concerns about worsening barotrauma on his lungs and fatigue. ABG was performed today which did show a good pH of 7.39, PCO2 of 44.3, low PO2 64, and bicarb of 26. Percent saturation was 90.5% which correlated with the pulse ox. Fortunately other factors including renal function and liver function was still very good. CRP is down to 4.8 and albumin increased a little bit to 1.6. We will try to give him albumin and Lasix to draw off any extra fluid from the interstitial space that we can. 12/02/2020 Patient is stable overnight and may be slightly better this afternoon. BiPAP has been weaned down to 85%. White count is 14.7, CRP is down to 2.0, albumin has increased to 1.9, kidney function is normal with a creatinine of 1.0, mild hyponatremia with sodium of 133. He is still drinking his protein shakes and is almost making his protein needs. 12/03/2020 Patient has made no real improvement overnight. He continues on BiPAP 12/12 with 15 L/min bled in. This is a different BiPAP than he was on yesterday which had specific FiO2. White count increased a little back up to 17, CRP dropped to normal at 0.8, albumin was stable at 1.9, creatinine was 1.0. Labs were essentially stable. He is on full dose Lovenox for his pulmonary emboli. Patient does complain of nasal congestion. He thinks this is causing him to have difficulty breathing through his nose. He continues on Zosyn day 5 for presumed pneumonia. 12/04/2020 Patient had a very difficult morning and evening. Last night he did become very confused, but he did maintain oxygen saturations. This morning he was less confused and had more difficulty with his oxygen saturations. I called [facility] in [place] in [place] to try to find him an ICU bed and both of them were full. We also have [facility] working on getting us an ICU bed anywhere in the [facility] or region. Unfortunately there are no hospitals willing to take him. He has now been on BiPAP for 6 days and has essentially failed BiPAP. His oxygen saturations maintained in the mid to upper 80s with occasional saturations in the 90s. If he removes his BiPAP for any given time he will drop down as low as 40%. I recommended that we intubated he refused today. Also, at our facility if we intubate him he will have a very high risk for mortality. Patient has a high risk of mortality in his current condition. We will continue to work on weaning off of BiPAP, but if he fails we will continue to discuss intubation with him. Labs were not done this morning and will be repeated tomorrow morning. Continue current treatment. Is on day 6 of Zosyn. He has completed remdesivir, dexamethasone, and Actemra. Plan * ICU with strict isolation * FiO2 to keep SPO2 between 86 to 94%. Wean as tolerated. High flow nasal cannula * Afrin, Claritin, and [place] for nasal congestion. * Hydroxyzine 25 mg p.o. as needed for anxiety * Actemra on 11/28/2020 * Completed 10 days of dexamethasone * Day 6 of Zosyn will complete a 7-day course. * Mucomyst for mucolytic as needed * DuoNeb every 2 hours as needed * Albuterol MDI 2 every 2 hours as needed * I-S and Acapella when able * Pepcid 20 mg twice daily * Monitor daily labs * We are now mainly monitoring his progress and hopes that his lungs will recover. * VTE treatment with Lovenox * CODE STATUS: Full code updated on his condition.
[2020-12-04] MEDS: Albuterol/Ipratropium 3.0-0.5 MG/3 ML Neb Soln NEB PRN ×2 (15:12→19:43)
[2020-12-04] MEDS: Acetaminophen/Codeine 300-30 MG Tab PO PRN (21:30)
[2020-12-05] MEDS: Piperacillin/Tazobactam 4.5 GM in Sodium Chloride 0.9% 100 ML IV SCH ×3 (01:30→18:52)
[2020-12-05] MEDS: Albuterol/Ipratropium 3.0-0.5 MG/3 ML Neb Soln NEB PRN ×2 (04:55→07:54)
[2020-12-05] MEDS: hydrOXYzine HCl 25 MG Tab PO PRN ×2 (05:24→12:08)
[2020-12-05] MEDS: Loratadine 10 MG Tab PO SCH (08:28)
[2020-12-05] MEDS: Famotidine 20 MG Tab PO SCH (08:28)
[2020-12-05] MEDS: guaiFENesin 600 MG Tab.ER PO SCH ×2 (08:28→17:11)
[2020-12-05] MEDS: Acetaminophen/Codeine 300-30 MG Tab PO PRN (08:28)
[2020-12-05] MEDS: Enoxaparin 80 MG/0.8 ML Syringe SUBCUT SCH (08:29)
[2020-12-05] MEDS ORDERED: Adenosine 6 MG/2 ML SDV ONE ×2 (12:18→15:13)
[2020-12-05] MEDS ORDERED: Adenosine 12 MG/4 ML SDV ONE ×2 (12:18→16:56)
[2020-12-05] MEDS ORDERED: Midazolam 1 MG/ML 2 ML SDV ONE (12:30)
[2020-12-05] MEDS ORDERED: Succinylcholine 200 MG/10 ML MDV ONE (12:43)
[2020-12-05] MEDS ORDERED: Midazolam 1 MG/ML 2 ML SDV IVPUSH ONE (12:43)
[2020-12-05] MEDS ORDERED: Propofol 200 MG/20 ML SDV IVPUSH ONE ×2 (12:43→15:07)
[2020-12-05] MEDS ORDERED: propofoL 100 ML IV SCH (12:45)
[2020-12-05] MEDS ORDERED: fentaNYL 2,500 MCG in Sodium Chloride 0.9% 200 ML IV SCH (13:15)
[2020-12-05] MEDS ORDERED: fentaNYL 100 MCG/2 ML SDV ONE (13:22)
[2020-12-05] MEDS ORDERED: fentaNYL 100 MCG/2 ML SDV IV ONE (13:30)
[2020-12-05] MEDS ORDERED: Sodium Chloride 0.9% 1,000 ML IV SCH (13:45)
--- NOTE | 2020-12-05 13:52 | CR ---
Chest: Portable view of the chest was obtained. Comparison: Prior chest x-ray of 11/28/20. No PICC line is identified. Diffuse parenchymal density is seen. Heart size and mediastinum are within normal limits. Bony structures show nothing acute. Impression: 1. Diffuse increased density throughout both sides of the chest which is stable from prior exam compatible with COVID pneumonia. 2. No PICC line is identified. Diagnostic code #3 I agree with preliminary report from ad, finalized on 12/05/20, 1:47 PM Central Daylight Time, code 1
--- NOTE | 2020-12-05 13:57 | PCM.SN.2 ---
- Free Text/Narrative Note: 12/05/20 [id number] Was informed of needing an intubation for a 60 year old male with covid and shortness of breath. Dr. Johnson present. Suction readily available and ambu. Talked with patient about procedure. Patient wanted a drink of water, but request denied. Face and scalp diaphoretic. Preoxygenated with 100% oxygen via ambu. Rapid sequence induction with cricoid. Propofol 100 mg IV given by RN. Succinylcholine 120 mg IV given by RN. Atraumatic intubation times 1 with 8.0 ETT with stylet. Teeth and lips as before. Secured at 22 at the teeth. Equal and bilateral breath sounds. Positive end tidal CO2 color change. Saturation up to 85% after intubation. RT secured airway and placed on ventilator. CXR pending. Laurie MANAGER FREELANCE Time Documentation
[2020-12-05] MEDS ORDERED: Furosemide 20 MG/2 ML VIAL IVPUSH ONE (14:23)
[2020-12-05] MEDS ORDERED: Furosemide 20 MG/2 ML VIAL ONE (14:24)
[2020-12-05] MEDS ORDERED: Sodium Chloride 0.9% 500 ML ONE (14:45)
[2020-12-05] MEDS ORDERED: propofoL 100 ML ONE (14:47)
--- NOTE | 2020-12-05 14:47 | CR ---
Chest: Portable view of the chest was obtained. Comparison: Prior chest x-ray performed earlier on the same day (12:18 PM). Nasogastric tube is seen which shows the tip likely within the stomach. Endotracheal tube is seen lying at the level of the inferior clavicles. Diffuse increased density is noted within both sides of the chest. Heart size and mediastinum are stable. Bony structures show nothing acute. Impression: 1. Satisfactory position of nasogastric tube and endotracheal tube. 2. Continued increased density is noted throughout both sides of the chest. Diagnostic code #3 MTDD
[2020-12-05] MEDS ORDERED: Rocuronium 50 MG/5 ML Vial IVPUSH ONE (15:16)
--- NOTE | 2020-12-05 15:37 | PCM.PN ---
- General Info Date of Service: 12/05/20 Admission Dx/Problem (Free Text): Admission Diagnosis/Problem Admission Diagnosis/Problem Hypoxia Subjective Update: This morning patient complained of the BiPAP pushing air too fast into his lungs. Respiratory therapy did decrease his pressures but he continued to be anxious and has tachycardic in the 120s. Patient then went into PSVT and he was given adenosine which converted him back to sinus tachycardia. Patient con tinued to have worsening oxygen saturations on BiPAP and I asked the patient if he agreed to be intubated. Patient did agree to be intubated and DISPLAY MANAGER was called for a rapid sequence intubation. Please see nurses notes and accompanying documents for specific times and medications. Patient was intu bated without difficulty, but immediately it was difficult to adequately oxygenate and ventilate the patient. Patient's oxygen status continues to be in the low 80s to upper 70s even with increasing PEEP and 100% FiO2. ARDSnet protocol was utilized with a low tidal volume and we adjusted the respiratory rate based on blood gases. Patient remained acidotic with high CO2. Because of very elevated peak pressures and plateau pressures it was difficult to decrease his CO2 and remained acidotic with a pH of approximately 7.08. Patient also continued to be hypoxic with PEEP as high as 16-18. This also contributed to his high pressures. Patient was sedated and paralyzed and we proned him to i mprove his lung recruitment. This did improve oxygenation so that way we were able to get oxygen saturations in the mid to high 80s. Unfortunately, his urine output decreased and repeat blood work showed an increase in potassium and creatinine. His creatinine increased by 0.5 over and 11 hour period. Family came to be with Kavin and they elected to withdraw care and make him comfort measures. At 1800 hrs. patient was extubated and he was pronounced at 1817 hours. - Patient Data Vitals - Most Recent: Last Vital Signs Temp 97.2 F 12/05/20 08:00 Pulse 88 12/05/20 04:00 Resp 32 H 12/05/20 08:00 BP 107/65 12/05/20 08:00 Pulse Ox 85 L 12/05/20 13:44 Weight - Most Recent: 172 lb 9.6 oz I&O - Last 24 Hours: Intake & Output 12/05/20 12/05/20 12/05/20 06:59 14:59 22:59 Intake Total 1115 Output Total 1195 560 Balance -80 -560 Lab Results Last 24 Hours: Laboratory Results - last 24 hr 12/05/20 12/05/20 12/05/20 Range/Units 04:51 04:51 14:22 WBC 21.52 H (4.23-9.07) K/mm3 RBC 4.85 (4.63-6.08) M/mm3 Hgb 14.9 D (13.7-17.5) gm/dl Hct 44.4 (40.1-51.0) % MCV 91.5 (79.0-92.2) fl MCH 30.7 (25.7-32.2) pg MCHC 33.6 (32.2-35.5) g/dl RDW Std Deviation 43.7 (35.1-43.9) fL Plt Count 262 (163-337) K/mm3 MPV 11.3 (9.4-12.3) fl Neut % (Auto) 87.2 H (34.0-67.9) % Lymph % (Auto) 3.3 L (21.8-53.1) % Boundary % (Auto) 3.7 L (5.3-12.2) % Eos % (Auto) 3.1 (0.8-7.0) Baso % (Auto) 0.2 (0.1-1.2) % Neut # (Auto) 18.78 H (1.78-5.38) K/mm3 Lymph # (Auto) 0.72 L (1.32-3.57) K/mm3 Boundary # (Auto) 0.79 (0.30-0.82) K/mm3 Eos # (Auto) 0.66 H (0.04-0.54) K/mm3 Baso # (Auto) 0.04 (0.01-0.08) K/mm3 Manual Slide Review Normal smear Puncture Site Rt radial ABG pH 7.08 L* (7.35-7.45) ABG pCO2 112.6 H* (35.0-45.0) mmHg ABG pO2 62.0 L (80.0-100.0) mmHg ABG HCO3 32.0 H (22.0-26.0) meq/L ABG O2 Saturation 77.3 L (96.0-97.0) % ABG Base Excess -3.3 L (-2-2.0) A-a Gradient 510 mmHg O2 Delivery Device Ventilator FiO2 100.00 (21.00-100.00) % Tidal Volume 400.0 cc PEEP 14.0 cmH20 Sodium 134 L (136-145) mEq/L Potassium 4.3 (3.5-5.1) mEq/L Chloride 100 (98-107) mEq/L Carbon Dioxide 30 (21-32) mEq/L Anion Gap 8.3 (5-15) BUN 19 H (7-18) mg/dL Creatinine 0.9 (0.7-1.3) mg/dL Est Cr Clr Drug Dosing 88.38 mL/min Estimated GFR (MDRD) > 60 (>60) mL/min BUN/Creatinine Ratio 21.1 H (14-18) Glucose 88 (70-99) mg/dL Calcium 8.1 L (8.5-10.1) mg/dL Phosphorus 3.1 (2.6-4.7) mg/dL Magnesium 2.2 (1.8-2.4) mg/dL Total Bilirubin 0.8 (0.2-1.0) mg/dL AST 35 (15-37) U/L ALT 47 (16-63) U/L Alkaline Phosphatase 241 H (46-116) U/L C-Reactive Protein 0.9 (<1.0) mg/dL Total Protein 5.5 L (6.4-8.2) g/dl Albumin 2.0 L (3.4-5.0) g/dl Globulin 3.5 gm/dL Albumin/Globulin Ratio 0.6 L (1-2) 12/05/20 Range/Units 15:28 WBC (4.23-9.07) K/mm3 RBC (4.63-6.08) M/mm3 Hgb (13.7-17.5) gm/dl Hct (40.1-51.0) % MCV (79.0-92.2) fl MCH (25.7-32.2) pg MCHC (32.2-35.5) g/dl RDW Std Deviation (35.1-43.9) fL Plt Count (163-337) K/mm3 MPV (9.4-12.3) fl Neut % (Auto) (34.0-67.9) % Lymph % (Auto) (21.8-53.1) % Boundary % (Auto) (5.3-12.2) % Eos % (Auto) (0.8-7.0) Baso % (Auto) (0.1-1.2) % Neut # (Auto) (1.78-5.38) K/mm3 Lymph # (Auto) (1.32-3.57) K/mm3 Boundary # (Auto) (0.30-0.82) K/mm3 Eos # (Auto) (0.04-0.54) K/mm3 Baso # (Auto) (0.01-0.08) K/mm3 Manual Slide Review Puncture Site katie ABG pH 7.08 L* (7.35-7.45) ABG pCO2 95.9 H* (35.0-45.0) mmHg ABG pO2 66.0 L (80.0-100.0) mmHg ABG HCO3 27.3 H (22.0-26.0) meq/L ABG O2 Saturation 78.9 L (96.0-97.0) % ABG Base Excess -6.4 L (-2-2.0) A-a Gradient 528 mmHg O2 Delivery Device FiO2 100.00 (21.00-100.00) % Tidal Volume 360.0 cc PEEP 16.0 cmH20 Sodium (136-145) mEq/L Potassium (3.5-5.1) mEq/L Chloride (98-107) mEq/L Carbon Dioxide (21-32) mEq/L Anion Gap (5-15) BUN (7-18) mg/dL Creatinine (0.7-1.3) mg/dL Est Cr Clr Drug Dosing mL/min Estimated GFR (MDRD) (>60) mL/min BUN/Creatinine Ratio (14-18) Glucose (70-99) mg/dL Calcium (8.5-10.1) mg/dL Phosphorus (2.6-4.7) mg/dL Magnesium (1.8-2.4) mg/dL Total Bilirubin (0.2-1.0) mg/dL AST (15-37) U/L ALT (16-63) U/L Alkaline Phosphatase (46-116) U/L C-Reactive Protein (<1.0) mg/dL Total Protein (6.4-8.2) g/dl Albumin (3.4-5.0) g/dl Globulin gm/dL Albumin/Globulin Ratio (1-2) Jamal Results Last 24 Hours: Microbiology 11/28/20 17:30 Blood Culture - Final Blood - Venous - Lab Draw 11/28/20 17:23 Blood Culture - Final Blood - Venous Med Orders - Current: Current Medications Acetaminophen (Acetaminophen 325 Mg Tab) 650 mg PO Q4H PRN PRN Reason: Pain (Mild 1-3)/fever Acetaminophen/Codeine Phosphate (Acetaminophen/Codeine 300-30 Mg Tab) 2 tab PO Q4H PRN PRN Reason: Chest Pain Last Admin: 12/05/20 08:28 Dose: 2 tab Documented by: Acetylcysteine (Acetylcysteine 20% 200 Mg/Ml 4 Ml Nebulizer Soln Sdv) 800 mg NEB QIDRT PRN PRN Reason: Shortness of Breath Last Admin: 12/04/20 08:30 Dose: 800 mg Documented by: Albuterol (Albuterol 6.7 Gm Inhaler) 0 gm INH Q2H PRN PRN Reason: Shortness of Breath Last Admin: 12/03/20 06:07 Dose: 2 inhalation Documented by: Albuterol/Ipratropium (Albuterol/Ipratropium 3.0-0.5 Mg/3 Ml Neb Soln) 3 ml NEB Q4H PRN PRN Reason: Shortness Of Breath/wheezing Last Admin: 12/05/20 07:54 Dose: 3 ml Documented by: Benzonatate (Benzonatate 100 Mg Cap) 200 mg PO Q8H PRN PRN Reason: Cough Last Admin: 12/01/20 20:43 Dose: 200 mg Documented by: Enoxaparin Sodium (Enoxaparin 80 Mg/0.8 Ml Syringe) 80 mg SUBCUT Q12H DADA Last Admin: 12/05/20 08:29 Dose: 80 mg Documented by: Guaifenesin (Guaifenesin 600 Mg Tab.Er) 600 mg PO TID DADA Last Admin: 12/05/20 08:28 Dose: 600 mg Documented by: Hydroxyzine HCl (Hydroxyzine Hcl 25 Mg Tab) 25 mg PO Q6H PRN PRN Reason: Anxiety Last Admin: 12/05/20 12:08 Dose: 25 mg Documented by: Piperacillin Sod/Tazobactam (Sod 4.5 gm/ Sodium Chloride) 100 mls @ 25 mls/hr IV Q8H DADA Stop: 12/05/20 18:01 Last Admin: 12/05/20 01:30 Dose: 25 mls/hr Documented by: Fentanyl 2,500 mcg/ Sodium (Chloride) 250 mls @ 10 mls/hr IV TITRATE DADA; Protocol Last Admin: 12/05/20 13:45 Dose: 10 ml/hr, 10 mls/hr Documented by: Midazolam HCl 100 mg/ Sodium (Chloride) 100 mls @ 4 mls/hr IV TITRATE DADA; Protocol Last Admin: 12/05/20 14:02 Dose: 4 mls/hr, 4 mls/hr Documented by: Norepinephrine Bitartrate 4 mg (/ Dextrose/Water) 250 mls @ 7.5 mls/hr IV TITRATE DADA; Protocol Last Titration: 12/05/20 14:09 Dose: 10 mcg/min, 37.5 mls/hr Documented by: Sodium Chloride (Normal Saline) 1,000 mls @ 100 mls/hr IV ASDIRECTED DADA Propofol (Diprivan 100 Ml) 100 mls @ 2.349 mls/hr IV TITRATE DADA; Protocol Last Admin: 12/05/20 12:50 Dose: 70 mcg/kg/min, 32.882 mls/hr Documented by: dexmedeTOMIDine in dextrose 5% (Dexmedetomidine In D5w 400 Mcg/100 Ml) 100 mls @ 3.915 mls/hr IV TITRATE DADA; Protocol Last Admin: 12/05/20 15:29 Dose: 0.2 mcg/kg/hr, 3.915 mls/hr Documented by: Vasopressin 100 units/ Sodium (Chloride) 100 mls @ 0.6 mls/hr IV TITRATE DADA; Protocol Loratadine (Loratadine 10 Mg Tab) 10 mg PO DAILY DADA Last Admin: 12/05/20 08:28 Dose: 10 mg Documented by: Ondansetron HCl (Ondansetron 4 Mg/2 Ml Sdv) 4 mg IV Q6H PRN PRN Reason: Nausea/Vomiting Oxymetazoline HCl (Oxymetazoline 0.05% Nasal [place] 30 Ml Bottle) 0 ml BREANNA Q12H PRN PRN Reason: Rhinitis Last Admin: 12/03/20 15:44 Dose: 2 spray Documented by: Pantoprazole Sodium (Pantoprazole 40 Mg Tab.Cr) 40 mg PO DAILY [facility] Polyethylene Glycol (Polyethylene Glycol 3350 Powder 17 Gm Packet) 17 gm PO DAILY PRN PRN Reason: Constipation Discontinued Medications Adenosine (Adenosine 6 Mg/2 Ml Sdv) Confirm Administered Dose 6 mg .ROUTE .STK- MED ONE Stop: 12/05/20 12:19 Last Admin: 12/05/20 12:20 Dose: 6 mg Documented by: Adenosine (Adenosine 12 Mg/4 Ml Sdv) Confirm Administered Dose 12 mg .ROUTE .STK-MED ONE Stop: 12/05/20 12:19 Last Admin: 12/05/20 12:30 Dose: 12 mg Documented by: Adenosine (Adenosine 6 Mg/2 Ml Sdv) Confirm Administered Dose 6 mg .ROUTE .STK- MED ONE Stop: 12/05/20 15:14 Dexamethasone (Dexamethasone 4 Mg Tab) 6 mg PO DAILY [facility] Stop: 12/02/20 09:01 Last Admin: 12/02/20 09:01 Dose: 6 mg Documented by: Enoxaparin Sodium (Enoxaparin 40 Mg/0.4 Ml Syringe) 40 mg SUBCUT DAILY [facility] Famotidine (Famotidine 20 Mg Tab) 20 mg PO BID [facility] Last Admin: 12/05/20 08:28 Dose: 20 mg Documented by: Fentanyl (Fentanyl 100 Mcg/2 Ml Sdv) 100 mcg IV ONETIME ONE Stop: 12/05/20 13:31 Last Admin: 12/05/20 13:23 Dose: 100 mcg Documented by: Fentanyl (Fentanyl 100 Mcg/2 Ml Sdv) Confirm Administered Dose 100 mcg .ROUTE .STK-MED ONE Stop: 12/05/20 13:23 Last Admin: 12/05/20 15:01 Dose: Not Given Documented by: Furosemide (Furosemide 20 Mg/2 Ml Vial) 20 mg IVPUSH NOW ONE Stop: 12/01/20 10:10 Last Admin: 12/01/20 11:11 Dose: 20 mg Documented by: Furosemide (Furosemide 20 Mg/2 Ml Vial) 20 mg IVPUSH NOW ONE Stop: 12/03/20 13:31 Last Admin: 12/03/20 14:01 Dose: 20 mg Documented by: Furosemide (Furosemide 20 Mg/2 Ml Vial) 20 mg IVPUSH NOW ONE Stop: 12/05/20 14:24 Last Admin: 12/05/20 14:30 Dose: 20 mg Documented by: Furosemide (Furosemide 20 Mg/2 Ml Vial) Confirm Administered Dose 20 mg .ROUTE .STK-MED ONE Stop: 12/05/20 14:25 Last Admin: 12/05/20 14:31 Dose: Not Given Documented by: Hydroxyzine HCl (Hydroxyzine Hcl 50 Mg Tab) 50 mg PO Q8H PRN PRN Reason: Anxiety Last Admin: 12/02/20 07:41 Dose: 50 mg Documented by: Lactated Ringer's (Ringers, Lactated) 500 mls @ 250 mls/hr IV .BOLUS ONE Stop: 11/28/20 20:35 Last Admin: 11/28/20 18:45 Dose: 250 mls/hr Documented by: Sodium Chloride (Normal Saline) 100 mls @ 60 mls/min IV ASDIRECTED [facility] Last Admin: 11/28/20 20:03 Dose: 60 mls/min Documented by: Piperacillin Sod/Tazobactam (Sod 4.5 gm/ Sodium Chloride) 100 mls @ 200 mls/hr IV ONETIME ONE Stop: 11/28/20 21:41 Last Admin: 11/28/20 21:43 Dose: 200 mls/hr Documented by: Lactated Ringer's (Ringers, Lactated) 1,000 mls @ 125 mls/hr IV ASDIRECTED [facility] Last Admin: 11/28/20 21:52 Dose: 125 mls/hr Documented by: Piperacillin Sod/Tazobactam (Sod 4.5 gm/ Sodium Chloride) 100 mls @ 25 mls/hr IV Q8HR [facility] Last Admin: 12/02/20 14:00 Dose: Not Given Documented by: Tocilizumab 200 mg/Tocilizumab 400 mg/ Sodium Chloride 100 mls @ 100 mls/hr IV ONETIME ONE Stop: 11/29/20 09:59 Last Admin: 11/29/20 08:42 Dose: 100 mls/hr Documented by: Albumin Human 12.5 gm/ Premix 50 mls @ 50 mls/hr IV ONETIME ONE Stop: 12/01/20 11:14 Last Admin: 12/01/20 10:43 Dose: 50 mls/hr Documented by: Sodium Chloride (Normal Saline) Confirm Administered Dose 500 mls @ as directed .ROUTE .STK-MED ONE Stop: 12/05/20 14:46 Propofol (Diprivan 100 Ml) Confirm Administered Dose 100 mls @ as directed .ROUTE .STK-MED ONE Stop: 12/05/20 14:48 Iopamidol (Iopamidol 755 Mg/Ml 100 Ml Bottle) 100 ml IVPUSH ONETIME ONE Stop: 11/28/20 20:02 Last Admin: 11/28/20 20:02 Dose: 100 ml Documented by: Lorazepam (Lorazepam 1 Mg Tab) 1 mg PO ONETIME ONE Stop: 11/28/20 16:41 Last Admin: 11/28/20 17:10 Dose: 1 mg Documented by: Lorazepam (Lorazepam 1 Mg Tab) 1 mg PO Q4H PRN PRN Reason: Anxiety Last Admin: 11/28/20 21:55 Dose: 1 mg Documented by: Lorazepam (Lorazepam 2 Mg/Ml Sdv) 1 mg IVPUSH Q2H PRN PRN Reason: Anxiety Last Admin: 12/03/20 19:36 Dose: 1 mg Documented by: Midazolam HCl (Midazolam 1 Mg/Ml 2 Ml Sdv) Confirm Administered Dose 2 mg .ROUTE .STK-MED ONE Stop: 12/05/20 12:31 Last Admin: 12/05/20 12:34 Dose: 2 mg Documented by: Midazolam HCl (Midazolam 1 Mg/Ml 2 Ml Sdv) 2 mg IVPUSH ONETIME ONE Stop: 12/05/20 12:44 Last Admin: 12/05/20 13:13 Dose: 2 mg Documented by: Piperacillin Sod/Tazobactam Sod (Piperacillin/Tazobactam 4.5 Gm Advvial) Confirm Administered Dose 4.5 gm .ROUTE .STK-MED ONE Stop: 12/03/20 08:37 Last Admin: 12/03/20 08:47 Dose: Not Given Documented by: Propofol (Propofol 200 Mg/20 Ml Sdv) 10 mg IVPUSH ONETIME ONE Stop: 12/05/20 12:44 Last Admin: 12/05/20 15:06 Dose: Not Given Documented by: Propofol (Propofol 200 Mg/20 Ml Sdv) 100 mg IVPUSH ONETIME ONE Stop: 10/15/21 15:08 Succinylcholine Chloride (Succinylcholine 200 Mg/10 Ml Mdv) 120 mg .XX ONETIME ONE Stop: 12/05/20 12:44 Comments:: Prior to intubation - Exam General: Alert, Oriented HEENT: Pupils Equal Neck: Supple Lungs: Crackles (Throughout both lung tilley). No: Normal Respiratory Effort (Increased respiratory rate with increased respiratory effort and uses extra muscles.) Cardiovascular: Regular Rhythm, Tachycardia GI/Abdominal Exam: Normal Bowel Sounds, Soft, Non-Tender, Distended Extremities: Normal Inspection, Normal Capillary Refill Skin: Warm, Dry, Intact - Patient Data Lab Results Last 24 hrs: Laboratory Results - last 24 hr 12/05/20 12/05/20 12/05/20 Range/Units 04:51 04:51 14:22 WBC 21.52 H (4.23-9.07) K/mm3 RBC 4.85 (4.63-6.08) M/mm3 Hgb 14.9 D (13.7-17.5) gm/dl Hct 44.4 (40.1-51.0) % MCV 91.5 (79.0-92.2) fl MCH 30.7 (25.7-32.2) pg MCHC 33.6 (32.2-35.5) g/dl RDW Std Deviation 43.7 (35.1-43.9) fL Plt Count 262 (163-337) K/mm3 MPV 11.3 (9.4-12.3) fl Neut % (Auto) 87.2 H (34.0-67.9) % Lymph % (Auto) 3.3 L (21.8-53.1) % Boundary % (Auto) 3.7 L (5.3-12.2) % Eos % (Auto) 3.1 (0.8-7.0) Baso % (Auto) 0.2 (0.1-1.2) % Neut # (Auto) 18.78 H (1.78-5.38) K/mm3 Lymph # (Auto) 0.72 L (1.32-3.57) K/mm3 Boundary # (Auto) 0.79 (0.30-0.82) K/mm3 Eos # (Auto) 0.66 H (0.04-0.54) K/mm3 Baso # (Auto) 0.04 (0.01-0.08) K/mm3 Manual Slide Review Normal smear Puncture Site Rt radial ABG pH 7.08 L* (7.35-7.45) ABG pCO2 112.6 H* (35.0-45.0) mmHg ABG pO2 62.0 L (80.0-100.0) mmHg ABG HCO3 32.0 H (22.0-26.0) meq/L ABG O2 Saturation 77.3 L (96.0-97.0) % ABG Base Excess -3.3 L (-2-2.0) A-a Gradient 510 mmHg O2 Delivery Device Ventilator FiO2 100.00 (21.00-100.00) % Tidal Volume 400.0 cc PEEP 14.0 cmH20 Sodium 134 L (136-145) mEq/L Potassium 4.3 (3.5-5.1) mEq/L Chloride 100 (98-107) mEq/L Carbon Dioxide 30 (21-32) mEq/L Anion Gap 8.3 (5-15) BUN 19 H (7-18) mg/dL Creatinine 0.9 (0.7-1.3) mg/dL Est Cr Clr Drug Dosing 88.38 mL/min Estimated GFR (MDRD) > 60 (>60) mL/min BUN/Creatinine Ratio 21.1 H (14-18) Glucose 88 (70-99) mg/dL Calcium 8.1 L (8.5-10.1) mg/dL Phosphorus 3.1 (2.6-4.7) mg/dL Magnesium 2.2 (1.8-2.4) mg/dL Total Bilirubin 0.8 (0.2-1.0) mg/dL AST 35 (15-37) U/L ALT 47 (16-63) U/L Alkaline Phosphatase 241 H (46-116) U/L C-Reactive Protein 0.9 (<1.0) mg/dL Total Protein 5.5 L (6.4-8.2) g/dl Albumin 2.0 L (3.4-5.0) g/dl Globulin 3.5 gm/dL Albumin/Globulin Ratio 0.6 L (1-2) 12/05/ Range/Units 15:28 WBC (4.23-9.07) K/mm3 RBC (4.63-6.08) M/mm3 Hgb (13.7-17.5) gm/dl Hct (40.1-51.0) % MCV (79.0-92.2) fl MCH (25.7-32.2) pg MCHC (32.2-35.5) g/dl RDW Std Deviation (35.1-43.9) fL Plt Count (163-337) K/mm3 MPV (9.4-12.3) fl Neut % (Auto) (34.0-67.9) % Lymph % (Auto) (21.8-53.1) % Boundary % (Auto) (5.3-12.2) % Eos % (Auto) (0.8-7.0) Baso % (Auto) (0.1-1.2) % Neut # (Auto) (1.78-5.38) K/mm3 Lymph # (Auto) (1.32-3.57) K/mm3 Boundary # (Auto) (0.30-0.82) K/mm3 Eos # (Auto) (0.04-0.54) K/mm3 Baso # (Auto) (0.01-0.08) K/mm3 Manual Slide Review Puncture Site katie ABG pH 7.08 L* (7.35-7.45) ABG pCO2 95.9 H* (35.0-45.0) mmHg ABG pO2 66.0 L (80.0-100.0) mmHg ABG HCO3 27.3 H (22.0-26.0) meq/L ABG O2 Saturation 78.9 L (96.0-97.0) % ABG Base Excess -6.4 L (-2-2.0) A-a Gradient 528 mmHg O2 Delivery Device FiO2 100.00 (21.00-100.00) % Tidal Volume 360.0 cc PEEP 16.0 cmH20 Sodium (136-145) mEq/L Potassium (3.5-5.1) mEq/L Chloride (98-107) mEq/L Carbon Dioxide (21-32) mEq/L Anion Gap (5-15) BUN (7-18) mg/dL Creatinine (0.7-1.3) mg/dL Est Cr Clr Drug Dosing mL/min Estimated GFR (MDRD) (>60) mL/min BUN/Creatinine Ratio (14-18) Glucose (70-99) mg/dL Calcium (8.5-10.1) mg/dL Phosphorus (2.6-4.7) mg/dL Magnesium (1.8-2.4) mg/dL Total Bilirubin (0.2-1.0) mg/dL AST (15-37) U/L ALT (16-63) U/L Alkaline Phosphatase (46-116) U/L C-Reactive Protein (<1.0) mg/dL Total Protein (6.4-8.2) g/dl Albumin (3.4-5.0) g/dl Globulin gm/dL Albumin/Globulin Ratio (1-2) Result Diagrams: 12/05/20 15:52 12/05/20 15:52 Jamal Results Last 24 hrs: Microbiology 11/28/20 17:30 Blood Culture - Final Blood - Venous - Lab Draw 11/28/20 17:23 Blood Culture - Final Blood - Venous Sepsis Event Note - Evaluation Sepsis Screening Result: Possible Sepsis Risk - Focused Exam Vital Signs: Vital Signs Temp Pulse Resp BP Pulse Ox Pulse Ox Pulse Ox 12/05/20 13:44 85 L 12/05/20 13:16 87 L 12/05/20 13:13 91 L 12/05/20 11:47 87 L 12/05/20 08:00 97.2 F 32 H 107/65 89 L 12/05/20 07:54 86 L 12/05/20 06:00 86 L 12/05/20 04:00 97.6 F 88 29 H 101/72 88 L - Problem List & Annotations (1) Pneumonia due to COVID-19 virus SNOMED Code(s): 237628935828523608 Code(s): U07.1 - COVID-19; J12.82 - PNEUMONIA DUE TO CORONAVIRUS DISEASE 2019 Status: Acute (2) Respiratory failure with hypoxia SNOMED Code(s): 59368663456629000 Code(s): J96.91 - RESPIRATORY FAILURE, UNSPECIFIED WITH HYPOXIA Status: A cute (3) Asthma SNOMED Code(s): 924306016 Code(s): J45.909 - UNSPECIFIED ASTHMA, UNCOMPLICATED Status: Acute - Problem List Review Problem List Initiated/Reviewed/Updated: Yes - My Orders Last 24 Hours: My Active Orders 12/04/20 15:56 Renew/Continue Urinary Catheter [OM.PC] Routine 12/05/20 01:19 Renew/Continue Urinary Catheter [OM.PC] Routine 12/05/20 09:31 Renew/Continue Urinary Catheter [OM.PC] Routine 12/05/20 12:45 Ventilator Assessment [RT Ventilator, Adult] [RC] ASDIRECTED propofoL [Diprivan 100 ML] 100 ml IV TITRATE 12/05/20 13:15 fentaNYL [Sublimaze] 2,500 mcg Sodium Chloride 0.9% [Normal Saline] 200 ml IV TITRATE 12/05/20 13:30 Midazolam [Versed 5 MG/ML] 100 mg Sodium Chloride 0.9% [Normal Saline] 80 ml IV TITRATE Norepinephrine [Levophed] 4 mg Dextrose 5% in Water 246 ml IV TITRATE 12/05/20 13:45 Sodium Chloride 0.9% [Normal Saline] 1,000 ml IV ASDIRECTED 12/05/20 14:58 RASS Sedation Scale [RC] ASDIRECTED 12/05/20 15:30 Vasopressin 100 units Sodium Chloride 0.9% [Normal Saline] 95 ml IV TITRATE dexmedeTOMIDine in dextrose 5% [dexmedeTOMIDine in D5W 400 MCG/100 ML] 100 ml IV TITRATE 12/06/20 09:00 Pantoprazole [ProTONIX] 40 mg PO DAILY - Plan Plan:: 60-year-old male with history of asthma transferred from [facility] with COVID-19 pneumonia and hypoxia COVID-19 pneumonia Respiratory failure * Admitted to [facility] on November 21, 2020 * Received Regeneron on or around November 17, 2020 * Worsening condition oxygenation over the last few days increasing need for high flow nasal cannula/noninvasive ventilation * Uses albuterol and Advair for asthma generally in the fall harvesting season * Has received 6 days of remdesivir and dexamethasone * Remdesivir stopped * Dexamethasone for total of 10 days * Azithromycin stopped * Received Actemra on 11/28/2020 * Procalcitonin 0.36 * CRP 19.1 * proBNP 199 suggesting very little cardiac dysfunction Left-sided subsegmental pulmonary emboli Small bilateral pleural effusions * CTA on 11/28/2020 * Start Lovenox 1 mg/kg twice daily on the night of 11/28/2020 Severe protein malnutrition * Albumin 1.5 * Duration of illness has made proper nutrition difficult. * Also decreased production of albumin secondary to severity of illness * Likely contributing to the small bilateral pleural effusions. 11/29/2020 Kavin continues to worsen overnight. He is on BiPAP at 100% FiO2. He has developed bilateral pulmonary emboli and is on Lovenox 1 mg/kg twice daily. Fortunately his lactic acidosis has improved, but he is still severely protein malnourished. Patient is now on BiPAP which will decrease his ability to take in nutrients. We will need to consider parenteral nutrition. Did discuss with the family that he is high risk for intubation. Patient is proning and having aggressive respiratory therapy. 11/30/2020 Oxygen saturations have improved and he is now on high flow nasal cannula at 60 L and 85%. He continues on Lovenox 1 mg/kg twice daily for his bilateral pulmonary emboli. His albumin continues to drop and is down to 1.4. Fortunately C-reactive protein is decreased from 19-12.1. White count is stable at 14 and likely secondary to steroids and not bacterial infection since his procalcitonin was less than 0.5. Encouraged him to increase protein intake. He still desats significantly when he does any movement. 12/01/2020 Patient has significant worsening of his condition today. He is back on BiPAP at 95%. Respiratory status has improved this afternoon. I discussed his condition with him and stated he may need to be intubated. At this time he does not want to be. We did place him on a transfer list, there are no beds available in [place] or the adjacent states. I share with him a significant concerns about worsening barotrauma on his lungs and fatigue. ABG was performed today which did show a good pH of 7.39, PCO2 of 44.3, low PO2 64, and bicarb of 26. Percent saturation was 90.5% which correlated with the pulse ox. Fortunately other factors including renal function and liver function was still very good. CRP is down to 4.8 and albumin increased a little bit to 1.6. We will try to give him albumin and Lasix to draw off any extra fluid from the interstitial space that we can. 12/02/2020 Patient is stable overnight and may be slightly better this afternoon. BiPAP has been weaned down to 85%. White count is 14.7, CRP is down to 2.0, albumin has increased to 1.9, kidney function is normal with a creatinine of 1.0, mild hyponatremia with sodium of 133. He is still drinking his protein shakes and is almost making his protein needs. 12/03/2020 Patient has made no real improvement overnight. He continues on BiPAP 12/12 with 15 L/min bled in. This is a different BiPAP than he was on yesterday which had specific FiO2. White count increased a little back up to 17, CRP dropped to normal at 0.8, albumin was stable at 1.9, creatinine was 1.0. Labs were essentially stable. He is on full dose Lovenox for his pulmonary emboli. Patient does complain of nasal congestion. He thinks this is causing him to have difficulty breathing through his nose. He continues on Zosyn day 5 for presumed pneumonia. 12/04/2020 Patient had a very difficult morning and evening. Last night he did become very confused, but he did maintain oxygen saturations. This morning he was less confused and had more difficulty with his oxygen saturations. I called [facility] in [place] in [place] to try to find him an ICU bed and both of them were full. We also have [facility] working on getting us an ICU bed anywhere in the [facility] or region. Unfortunately there are no hospitals willing to take him. He has now been on BiPAP for 6 days and has essentially failed BiPAP. His oxygen saturations maintained in the mid to upper 80s with occasional saturations in the 90s. If he removes his BiPAP for any given time he will drop down as low as 40%. I recommended that we intubated he refused today. Also, at our facility if we intubate him he will have a very high risk for mortality. Patient has a high risk of mortality in his current condition. We will continue to work on weaning off of BiPAP, but if he fails we will continue to discuss intubation with him. Labs were not done this morning and will be rep eated tomorrow morning. Continue current treatment. Is on day 6 of Zosyn. He has completed remdesivir, dexamethasone, and Actemra. Plan * ICU with strict isolation * FiO2 to keep SPO2 between 86 to 94%. Wean as tolerated. High flow nasal cannula * Afrin, Claritin, and [place] for nasal congestion. * Hydroxyzine 25 mg p.o. as needed for anxiety * Actemra on 11/28/2020 * Completed 10 days of dexamethasone * Day 6 of Zosyn will complete a 7-day course. * Mucomyst for mucolytic as needed * DuoNeb every 2 hours as needed * Albuterol MDI 2 every 2 hours as needed * I-S and Acapella when able * Pepcid 20 mg twice daily * Monitor daily labs * We are now mainly monitoring his progress and hopes that his lungs will recover. * VTE treatment with Lovenox * CODE STATUS: Full code 12/05/2020 As stated above patient went into respiratory failure after developing SVT. Patient was intubated, but ultimately we were unable to appropriately oxygenate or ventilate the patient. We tried multiple times throughout the week and today to find any place that would take him, but because he is COVID-19 pneumonia no ICU within the region as far down as [place] had a bed available for him. Family understood his dire condition and elected to withdraw care instead of having him suffer. Total critical care time at the bedside was 2 hours
[2020-12-05] MEDS ORDERED: Adenosine 12 MG/4 ML SDV IVPUSH ONE (16:53)
--- NOTE | 2020-12-05 18:20 | PCM.SN.2 ---
- Free Text/Narrative Note: Patient's family decided to make him comfort measures just before 1800 hrs. Patient had his sedating medications stopped and his vasopressors stopped prior to extubation. Extubation occurred at 1800 hrs. Patient was pronounced at 1817 hrs. Time Documentation
--- NOTE | 2020-12-05 22:11 | PCM.DCSUM1 ---
Discharge Summary - Hospital Course HPI Initial Comments: 60-year-old male air transferred from [facility] secondary to worsening hypoxia due to COVID-19 pneumonia. We have minimal documentation available to us at this time. Transferring provider is Donnie Soto PA-C. Date of admission to [facility] November 21, 2020. Patient states he for started getting fatigued and short of breath at the end of October. He was seen on approximately November 17 at the [facility] emergency department and given Regeneron. Patient continued to worsen and was admitted on 21 November. There he was started on remdesivir, dexamethasone, and and azithromycin. He has a history of mild to moderate asthma controlled on Advair. Over the last few days patient has had worsening oxygen saturations. [facility] does not have high flow or BiPAP available to them. Last night he was on a nonrebreather with nasal cannula and oxygen saturations were in the upper seventies to low eighties. This morning saturations were in the low to mid eighties and arrangement was made to transfer the patient to us. I do not have a D-dimer available nor as C-reactive protein. Review of CBC and BMP shows no significant positives. During air transport patient was placed on BiPAP. When he arrived to our facility did not tolerate BiPAP initially was switched to high flow nasal cannula at 60 L and 95% FiO2. Oxygen saturations were in the low nineties to upper eighties. He did state he was feeling much better on high flow. Assessment/Plan Comment:: 60-year-old male with history of asthma transferred from [facility] with COVID-19 pneumonia and hypoxia COVID-19 pneumonia Respiratory failure * Admitted to [facility] on November 21, 2020 * Received Regeneron on or around November 17, 2020 * Worsening condition oxygenation over the last few days increasing need for high flow nasal cannula/noninvasive ventilation * Uses albuterol and Advair for asthma generally in the fall harvesting season * Has received 6 days of remdesivir and dexamethasone * Has not received Actemra or baricitinib * Current blood work pending Plan * Admit to ICU with strict isolation * FiO2 to keep SPO2 between 86 to 94%. Wean as tolerated. Currently on high flow nasal cannula 60 L and 95% FiO2 * Stop remdesivir since there is very little benefit after 5 days * Continue dexamethasone 6 mg p.o. for total of 10 days * Counseled the patient regards to Actemra and gave him the EUA handout. He will consider this overnight. * Get CBC, CMP, mag, Phos, CRP, D-dimer, procalcitonin, blood cultures, lactic acid * Chest x-ray * DuoNeb every 2 hours as needed * Albuterol MDI 2 every 2 hours as needed * I-S and Acapella * DC azithromycin * Pepcid 20 mg twice daily * Monitor daily labs * VTE prophylaxis with Lovenox * CODE STATUS: Full code 11/28/2020 2100 hrs. Elevated D-dimer was called to me and a CT angiogram was ordered. CT angiogram did show scattered subsegmental pulmonary emboli within the left lower lung. Small bilateral pleural effusions with diffuse increased density throughout both sides of the chest. Also, lactic acid returned elevated from the 1730 hrs. draw at 2.7 and repeat at 2032 was elevated at 3.0. Initially elevation in lactic acid was felt to be secondary to hypoxemia causing endorgan lactic acidosis. Also, a fluid bolus of 250 mL/h x 2 was started then LR ran at 125 mL/h until lactic acid was less than 2.0. Lactic acid 0 337 on 11/29/2020 was 1.1. Also of note, albumin was 1.7 on admission which places him at high risk of a poor outcome. Diagnosis: Stroke: No - Discharge Data Discharge Date: 12/05/20 Discharge Disposition: 20 Condition: - Referral to Home Health Primary Care Physician: PCP None - Discharge Diagnosis/Problem(s) (1) Pneumonia due to COVID-19 virus SNOMED Code(s): 372574640900740851 ICD Code: U07.1 - COVID-19; J12.82 - PNEUMONIA DUE TO CORONAVIRUS DISEASE 2019 Status: Acute (2) Respiratory failure with hypoxia SNOMED Code(s): 34887332115173677 ICD Code: J96.91 - RESPIRATORY FAILURE, UNSPECIFIED WITH HYPOXIA Status: Acute (3) Asthma SNOMED Code(s): 871303568 ICD Code: J45.909 - UNSPECIFIED ASTHMA, UNCOMPLICATED Status: Acute - Patient Summary/Data Consults: Consultations 11/28/20 16:55 Respiratory Care Assess and Treatment [CONS] Routine Hospital Course: 60-year-old male with history of asthma transferred from [facility] with COVID-19 pneumonia and hypoxia COVID-19 pneumonia Respiratory failure * Admitted to [facility] on November 21, 2020 * Received Regeneron on or around November 17, 2020 * Worsening condition oxygenation over the last few days increasing need for high flow nasal cannula/noninvasive ventilation * Uses albuterol and Advair for asthma generally in the fall harvesting season * Has received 6 days of remdesivir and dexamethasone * Remdesivir stopped * Dexamethasone for total of 10 days * Azithromycin stopped * Received Actemra on 11/28/2020 * Procalcitonin 0.36 * CRP 19.1 * proBNP 199 suggesting very little cardiac dysfunction Left-sided subsegmental pulmonary emboli Small bilateral pleural effusions * CTA on 11/28/2020 * Start Lovenox 1 mg/kg twice daily on the night of 11/28/2020 Severe protein malnutrition * Albumin 1.5 * Duration of illness has made proper nutrition difficult. * Also decreased production of albumin secondary to severity of illness * Likely contributing to the small bilateral pleural effusions. 11/29/2020 Kavin continues to worsen overnight. He is on BiPAP at 100% FiO2. He has developed bilateral pulmonary emboli and is on Lovenox 1 mg/kg twice daily. Fortunately his lactic acidosis has improved, but he is still severely protein malnourished. Patient is now on BiPAP which will decrease his ability to take in nutrients. We will need to consider parenteral nutrition. Did discuss with the family that he is high risk for intubation. Patient is proning and having aggressive respiratory therapy. 11/30/2020 Oxygen saturations have improved and he is now on high flow nasal cannula at 60 L and 85%. He continues on Lovenox 1 mg/kg twice daily for his bilateral pulmonary emboli. His albumin continues to drop and is down to 1.4. Fortunately C-reactive protein is decreased from 19-12.1. White count is stable at 14 and likely secondary to steroids and not bacterial infection since his procalcitonin was less than 0.5. Encouraged him to increase protein intake. He still desats significantly when he does any movement. 12/01/2020 Patient has significant worsening of his condition today. He is back on BiPAP at 95%. Respiratory status has improved this afternoon. I discussed his condition with him and stated he may need to be intubated. At this time he does not want to be. We did place him on a transfer list, there are no beds available in [place] or the adjacent states. I share with him a significant concerns about worsening barotrauma on his lungs and fatigue. ABG was performed today which did show a good pH of 7.39, PCO2 of 44.3, low PO2 64, and bicarb of 26. Percent saturation was 90.5% which correlated with the pulse ox. Fortunately other factors including renal function and liver function was still very good. CRP is down to 4.8 and albumin increased a little bit to 1.6. We will try to give him albumin and Lasix to draw off any extra fluid from the interstitial space that we can. 12/02/2020 Patient is stable overnight and may be slightly better this afternoon. BiPAP has been weaned down to 85%. White count is 14.7, CRP is down to 2.0, albumin has increased to 1.9, kidney function is normal with a creatinine of 1.0, mild hyponatremia with sodium of 133. He is still drinking his protein shakes and is almost making his protein needs. 12/03/2020 Patient has made no real improvement overnight. He continues on BiPAP 12/12 with 15 L/min bled in. This is a different BiPAP than he was on yesterday which had specific FiO2. White count increased a little back up to 17, CRP dropped to normal at 0.8, albumin was stable at 1.9, creatinine was 1.0. Labs were essentially stable. He is on full dose Lovenox for his pulmonary emboli. Patient does complain of nasal congestion. He thinks this is causing him to have difficulty breathing through his nose. He continues on Zosyn day 5 for presumed pneumonia. 12/04/2020 Patient had a very difficult morning and evening. Last night he did become very confused, but he did maintain oxygen saturations. This morning he was less confused and had more difficulty with his oxygen saturations. I called [facility] in [place] in [place] to try to find him an ICU bed and both of them were full. We also have [facility] working on getting us an ICU bed anywhere in the critical access hospital or region. Unfortunately there are no hospitals willing to take him. He has now been on BiPAP for 6 days and has essentially failed BiPAP. His oxygen saturations maintained in the mid to upper 80s with occasional saturations in the 90s. If he removes his BiPAP for any given time he will drop down as low as 40%. I recommended that we intubated he refused today. Also, at our facility if we intubate him he will have a very high risk for mortality. Patient has a high risk of mortality in his current condition. We will continue to work on weaning off of BiPAP, but if he fails we will continue to discuss intubation with him. Labs were not done this morning and will be repeated tomorrow morning. Continue current treatment. Is on day 6 of Zosyn. He has completed remdesivir, dexamethasone, and Actemra. Plan * ICU with strict isolation * FiO2 to keep SPO2 between 86 to 94%. Wean as tolerated. High flow nasal cannula * Afrin, Claritin, and [place] for nasal congestion. * Hydroxyzine 25 mg p.o. as needed for anxiety * Actemra on 11/28/2020 * Completed 10 days of dexamethasone * Day 6 of Zosyn will complete a 7-day course. * Mucomyst for mucolytic as needed * DuoNeb every 2 hours as needed * Albuterol MDI 2 every 2 hours as needed * I-S and Acapella when able * Pepcid 20 mg twice daily * Monitor daily labs * We are now mainly monitoring his progress and hopes that his lungs will recover. * VTE treatment with Lovenox * CODE STATUS: Full code 12/05/2020 60-year-old male air transferred from [facility] secondary to worsening hypoxia due to COVID-19 pneumonia. We have minimal documentation available to us at this time. Transferring provider is Donnie Soto PA-C. Date of admission to [facility] November 21, 2020. Patient states he for started getting fatigued and short of breath at the end of October. He was seen on approximately November 17 at the [facility] emergency department and given Regeneron. Patient continued to worsen and was admitted on 21 November. There he was started on remdesivir, dexamethasone, and and azithromycin. He has a history of mild to moderate asthma controlled on Advair. Over the last few days patient has had worsening oxygen saturations. [facility] does not have high flow or BiPAP available to them. Last night he was on a nonrebreather with nasal cannula and oxygen saturations were in the upper seventies to low eighties. This morning saturations were in the low to mid eighties and arrangement was made to transfer the patient to us. I do not have a D-dimer available nor as C-reactive protein. Review of CBC and BMP shows no significant positives. During air transport patient was placed on BiPAP. When he arrived to our facility did not tolerate BiPAP initially was switched to high flow nasal cannula at 60 L and 95% FiO2. Oxygen saturations were in the low nineties to upper eighties. He did state he was feeling much better on high flow. As stated above patient went into respiratory failure after developing SVT. Patient was intubated, but ultimately we were unable to appropriately oxygenate or ventilate the patient. We tried multiple times throughout the week and today to find any place that would take him, but because he is COVID-19 pneumonia no ICU within the region as far down as [place] had a bed available for him. Family understood his dire condition and elected to withdraw care instead of having him suffer. Total critical care time at the bedside was 2 hours - Discharge Plan Home Medications: Home Meds . [No Known Home Meds] 11/05/14 [History] Patient Handouts: COVID-19 Frequently Asked Questions, COVID-19, 10 Things You Can Do to Manage Your COVID-19 Symptoms at Home - [facility] (09/05/2020), Pulmonary Embolism, Venous Thromboembolism Prevention, Sepsis, Self Care, Adult Referrals: Donnie Soto Jr, ZACH [Ordering Only Provider] - - Discharge Summary/Plan Comment DC Time >30 min.: Yes Total # of Minutes for Discharge Time: 5 hours - Patient Data Vitals - Most Recent: Last Vital Signs Temp 96.5 F L 12/05/20 16:00 Pulse 91 12/05/20 16:10 Resp 0 L 12/05/20 16:55 BP 93/68 12/05/20 16:55 Pulse Ox 85 L 12/05/20 16:10 Weight - Most Recent: 172 lb 9.6 oz I&O - Last 24 hours: Intake & Output 12/05/20 12/05/20 12/05/20 06:59 14:59 22:59 Intake Total 1115 Output Total 1195 560 70 Balance -80 -560 -70 Lab Results - Last 24 hrs: Laboratory Results - last 24 hr 12/05/20 12/05/20 12/05/20 Range/Units 04:51 04:51 14:22 WBC 21.52 H (4.23-9.07) K/mm3 Corrected WBC RBC 4.85 (4.63-6.08) M/mm3 Hgb 14.9 D (13.7-17.5) gm/dl Hct 44.4 (40.1-51.0) % MCV 91.5 (79.0-92.2) fl MCH 30.7 (25.7-32.2) pg MCHC 33.6 (32.2-35.5) g/dl RDW Std Deviation 43.7 (35.1-43.9) fL Plt Count 262 (163-337) K/mm3 MPV 11.3 (9.4-12.3) fl Neut % (Auto) 87.2 H (34.0-67.9) % Lymph % (Auto) 3.3 L (21.8-53.1) % [place] % (Auto) 3.7 L (5.3-12.2) % Eos % (Auto) 3.1 (0.8-7.0) Baso % (Auto) 0.2 (0.1-1.2) % Neut # (Auto) 18.78 H (1.78-5.38) K/mm3 Lymph # (Auto) 0.72 L (1.32-3.57) K/mm3 [place] # (Auto) 0.79 (0.30-0.82) K/mm3 Eos # (Auto) 0.66 H (0.04-0.54) K/mm3 Baso # (Auto) 0.04 (0.01-0.08) K/mm3 Neutrophils % (Manual) (40-60) % Band Neutrophils % (0-10) % Lymphocytes % (Manual) (20-40) % Atypical Lymphs % % Immat Monocytes % (Man) Monocytes % (Manual) (2-10) % Eosinophils % (Manual) (0.8-7.0) % Basophils % (Manual) (0.2-1.2) Metamyelocytes % Myelocytes % Promyelocytes % Blast Cells % Plasma Cell % (Manual) Immature Gran # Absolute Neutrophils Absolute Seg Neuts Band Neutrophils # Lymphocytes # (Manual) Monocytes # (Manual) Eosinophils # (Manual) Basophils # (Manual) Absolute Metamyelocyte Absolute Myelocytes Absolute Promyelocytes Absolute Plasma Cells Nucleated RBCs Differential Comment Manual Slide Review Normal smear Hypersegmented Neuts Atypical Lymphocytes Vacuolated Monocytes Absolute Blast Cells Toxic Granulation Dohle Bodies Pelger-Huet Cells Megakaryocytic Frags Lety Rods WBC Morphology Comment Platelet Estimate Clumped Platelets Giant Platelets Plt Morphology Comment Polychromasia Hypochromasia Poikilocytosis Basophilic Stippling Anisocytosis Microcytosis Macrocytosis Spherocytes Pappenheimer Bodies Sickle Cells Target Cells Tear Drop Cells Ovalocytes Stomatocytes Helmet Cells [place] Bodies [place] Rings Alexandra Cells Elliptocytes Acanthocytes (Spur) Rouleaux Hemoglobin C Crystals Schistocytes RBC Morph Comment Smear Path Review Spencer Bodies Puncture Site Rt radial ABG pH 7.08 L* (7.35-7.45) ABG pCO2 112.6 H* (35.0-45.0) mmHg ABG pO2 62.0 L (80.0-100.0) mmHg ABG HCO3 32.0 H (22.0-26.0) meq/L ABG O2 Saturation 77.3 L (96.0-97.0) % ABG Base Excess -3.3 L (-2-2.0) A-a Gradient 510 mmHg O2 Delivery Device Ventilator FiO2 100.00 (21.00-100.00) % Tidal Volume 400.0 cc PEEP 14.0 cmH20 Sodium 134 L (136-145) mEq/L Potassium 4.3 (3.5-5.1) mEq/L Chloride 100 (98-107) mEq/L Carbon Dioxide 30 (21-32) mEq/L Anion Gap 8.3 (5-15) BUN 19 H (7-18) mg/dL Creatinine 0.9 (0.7-1.3) mg/dL Est Cr Clr Drug Dosing 88.38 mL/min Estimated GFR (MDRD) > 60 (>60) mL/min BUN/Creatinine Ratio 21.1 H (14-18) Glucose 88 (70-99) mg/dL Calcium 8.1 L (8.5-10.1) mg/dL Phosphorus 3.1 (2.6-4.7) mg/dL Magnesium 2.2 (1.8-2.4) mg/dL Total Bilirubin 0.8 (0.2-1.0) mg/dL AST 35 (15-37) U/L ALT 47 (16-63) U/L Alkaline Phosphatase 241 H (46-116) U/L C-Reactive Protein 0.9 (<1.0) mg/dL Total Protein 5.5 L (6.4-8.2) g/dl Albumin 2.0 L (3.4-5.0) g/dl Globulin 3.5 gm/dL Albumin/Globulin Ratio 0.6 L (1-2) Slides for Path Review 12/05/20 12/05/20 12/05/20 Range/Units 15:28 15:52 15:52 WBC 38.26 H (4.23-9.07) K/mm3 Corrected WBC Communication Electronic Technician RBC 5.10 (4.63-6.08) M/mm3 Hgb 15.7 (13.7-17.5) gm/dl Hct 48.8 (40.1-51.0) % MCV 95.7 H D (79.0-92.2) fl MCH 30.8 (25.7-32.2) pg MCHC 32.2 (32.2-35.5) g/dl RDW Std Deviation 46.3 H (35.1-43.9) fL Plt Count 376 H D (163-337) K/mm3 MPV 11.1 (9.4-12.3) fl Neut % (Auto) Cancelled (34.0-67.9) % Lymph % (Auto) Cancelled (21.8-53.1) % [place] % (Auto) Cancelled (5.3-12.2) % Eos % (Auto) Cancelled (0.8-7.0) Baso % (Auto) Cancelled (0.1-1.2) % Neut # (Auto) Cancelled (1.78-5.38) K/mm3 Lymph # (Auto) Cancelled (1.32-3.57) K/mm3 [place] # (Auto) Cancelled (0.30-0.82) K/mm3 Eos # (Auto) Cancelled (0.04-0.54) K/mm3 Baso # (Auto) Cancelled (0.01-0.08) K/mm3 Neutrophils % (Manual) 77 H (40-60) % Band Neutrophils % 1 (0-10) % Lymphocytes % (Manual) 10 L (20-40) % Atypical Lymphs % 0 % Immat Monocytes % (Man) Communication Electronic Technician Monocytes % (Manual) 9 (2-10) % Eosinophils % (Manual) 3 (0.8-7.0) % Basophils % (Manual) 0 L (0.2-1.2) Metamyelocytes % Communication Electronic Technician Myelocytes % Communication Electronic Technician Promyelocytes % Communication Electronic Technician Blast Cells % Communication Electronic Technician Plasma Cell % (Manual) Communication Electronic Technician Immature Gran # Communication Electronic Technician Absolute Neutrophils Communication Electronic Technician Absolute Seg Neuts Communication Electronic Technician Band Neutrophils # Communication Electronic Technician Lymphocytes # (Manual) Communication Electronic Technician Monocytes # (Manual) Communication Electronic Technician Eosinophils # (Manual) Communication Electronic Technician Basophils # (Manual) Communication Electronic Technician Absolute Metamyelocyte Communication Electronic Technician Absolute Myelocytes Communication Electronic Technician Absolute Promyelocytes Communication Electronic Technician Absolute Plasma Cells Communication Electronic Technician Nucleated RBCs Communication Electronic Technician Differential Comment Communication Electronic Technician Manual Slide Review Cancelled Hypersegmented Neuts Communication Electronic Technician Atypical Lymphocytes Communication Electronic Technician Vacuolated Monocytes Communication Electronic Technician Absolute Blast Cells Communication Electronic Technician Toxic Granulation Few Dohle Bodies Communication Electronic Technician Pelger-Huet Cells Communication Electronic Technician Megakaryocytic Frags Communication Electronic Technician Lety Rods Communication Electronic Technician WBC Morphology Comment Communication Electronic Technician Platelet Estimate Adequate Clumped Platelets Communication Electronic Technician Giant Platelets Communication Electronic Technician Plt Morphology Comment Communication Electronic Technician Polychromasia Communication Electronic Technician Hypochromasia Communication Electronic Technician Poikilocytosis Communication Electronic Technician Basophilic Stippling Communication Electronic Technician Anisocytosis Communication Electronic Technician Microcytosis Communication Electronic Technician Macrocytosis Communication Electronic Technician Spherocytes Communication Electronic Technician Pappenheimer Bodies Communication Electronic Technician Sickle Cells Communication Electronic Technician Target Cells Communication Electronic Technician Tear Drop Cells Communication Electronic Technician Ovalocytes Communication Electronic Technician Stomatocytes Communication Electronic Technician Helmet Cells Communication Electronic Technician [place] Bodies Communication Electronic Technician [place] Rings Communication Electronic Technician Alexandra Cells Communication Electronic Technician Elliptocytes Communication Electronic Technician Acanthocytes (Spur) Communication Electronic Technician Rouleaux Communication Electronic Technician Hemoglobin C Crystals Communication Electronic Technician Schistocytes Communication Electronic Technician RBC Morph Comment Not Reportable Smear Path Review Communication Electronic Technician Spencer Bodies Communication Electronic Technician Puncture Site katie ABG pH 7.08 L* (7.35-7.45) ABG pCO2 95.9 H* (35.0-45.0) mmHg ABG pO2 66.0 L (80.0-100.0) mmHg ABG HCO3 27.3 H (22.0-26.0) meq/L ABG O2 Saturation 78.9 L (96.0-97.0) % ABG Base Excess -6.4 L (-2-2.0) A-a Gradient 528 mmHg O2 Delivery Device FiO2 100.00 (21.00-100.00) % Tidal Volume 360.0 cc PEEP 16.0 cmH20 Sodium 135 L (136-145) mEq/L Potassium 5.3 H (3.5-5.1) mEq/L Chloride 99 (98-107) mEq/L Carbon Dioxide 28 (21-32) mEq/L Anion Gap 13.3 (5-15) BUN 25 H (7-18) mg/dL Creatinine 1.3 (0.7-1.3) mg/dL Est Cr Clr Drug Dosing 61.18 mL/min Estimated GFR (MDRD) 57 (>60) mL/min BUN/Creatinine Ratio 19.2 H (14-18) Glucose 218 H (70-99) mg/dL Calcium 8.2 L (8.5-10.1) mg/dL Phosphorus 7.8 H (2.6-4.7) mg/dL Magnesium 2.6 H (1.8-2.4) mg/dL Total Bilirubin 0.4 (0.2-1.0) mg/dL AST 30 (15-37) U/L ALT 43 (16-63) U/L Alkaline Phosphatase 252 H (46-116) U/L C-Reactive Protein (<1.0) mg/dL Total Protein 6.1 L (6.4-8.2) g/dl Albumin 2.3 L (3.4-5.0) g/dl Globulin 3.8 gm/dL Albumin/Globulin Ratio 0.6 L (1-2) Slides for Path Review Communication Electronic Technician 12/05/20 Range/Units 17:54 WBC (4.23-9.07) K/mm3 Corrected WBC RBC (4.63-6.08) M/mm3 Hgb (13.7-17.5) gm/dl Hct (40.1-51.0) % MCV (79.0-92.2) fl MCH (25.7-32.2) pg MCHC (32.2-35.5) g/dl RDW Std Deviation (35.1-43.9) fL Plt Count (163-337) K/mm3 MPV (9.4-12.3) fl Neut % (Auto) (34.0-67.9) % Lymph % (Auto) (21.8-53.1) % [place] % (Auto) (5.3-12.2) % Eos % (Auto) (0.8-7.0) Baso % (Auto) (0.1-1.2) % Neut # (Auto) (1.78-5.38) K/mm3 Lymph # (Auto) (1.32-3.57) K/mm3 [place] # (Auto) (0.30-0.82) K/mm3 Eos # (Auto) (0.04-0.54) K/mm3 Baso # (Auto) (0.01-0.08) K/mm3 Neutrophils % (Manual) (40-60) % Band Neutrophils % (0-10) % Lymphocytes % (Manual) (20-40) % Atypical Lymphs % % Immat Monocytes % (Man) Monocytes % (Manual) (2-10) % Eosinophils % (Manual) (0.8-7.0) % Basophils % (Manual) (0.2-1.2) Metamyelocytes % Myelocytes % Promyelocytes % Blast Cells % Plasma Cell % (Manual) Immature Gran # Absolute Neutrophils Absolute Seg Neuts Band Neutrophils # Lymphocytes # (Manual) Monocytes # (Manual) Eosinophils # (Manual) Basophils # (Manual) Absolute Metamyelocyte Absolute Myelocytes Absolute Promyelocytes Absolute Plasma Cells Nucleated RBCs Differential Comment Manual Slide Review Hypersegmented Neuts Atypical Lymphocytes Vacuolated Monocytes Absolute Blast Cells Toxic Granulation Dohle Bodies Pelger-Huet Cells Megakaryocytic Frags Lety Rods WBC Morphology Comment Platelet Estimate Clumped Platelets Giant Platelets Plt Morphology Comment Polychromasia Hypochromasia Poikilocytosis Basophilic Stippling Anisocytosis Microcytosis Macrocytosis Spherocytes Pappenheimer Bodies Sickle Cells Target Cells Tear Drop Cells Ovalocytes Stomatocytes Helmet Cells [place] Bodies [place] Rings [place] Cells Elliptocytes Acanthocytes (Spur) Rouleaux Hemoglobin C Crystals Schistocytes RBC Morph Comment Smear Path Review Spencer Bodies Puncture Site A-line ABG pH 7.05 L* (7.35-7.45) ABG pCO2 102.3 H* (35.0-45.0) mmHg ABG pO2 74.0 L (80.0-100.0) mmHg ABG HCO3 26.7 H (22.0-26.0) meq/L ABG O2 Saturation 85.6 L (96.0-97.0) % ABG Base Excess -8.1 L (-2-2.0) A-a Gradient 511 mmHg O2 Delivery Device Ventilator FiO2 100.00 (21.00-100.00) % Tidal Volume 360.0 cc PEEP 16.0 cmH20 Sodium (136-145) mEq/L Potassium (3.5-5.1) mEq/L Chloride (98-107) mEq/L Carbon Dioxide (21-32) mEq/L Anion Gap (5-15) BUN (7-18) mg/dL Creatinine (0.7-1.3) mg/dL Est Cr Clr Drug Dosing mL/min Estimated GFR (MDRD) (>60) mL/min BUN/Creatinine Ratio (14-18) Glucose (70-99) mg/dL Calcium (8.5-10.1) mg/dL Phosphorus (2.6-4.7) mg/dL Magnesium (1.8-2.4) mg/dL Total Bilirubin (0.2-1.0) mg/dL AST (15-37) U/L ALT (16-63) U/L Alkaline Phosphatase (46-116) U/L C-Reactive Protein (<1.0) mg/dL Total Protein (6.4-8.2) g/dl Albumin (3.4-5.0) g/dl Globulin gm/dL Albumin/Globulin Ratio (1-2) Slides for Path Review Med Orders - Current: Current Medications Discontinued Medications Acetaminophen (Acetaminophen 325 Mg Tab) 650 mg PO Q4H PRN PRN Reason: Pain (Mild 1-3)/fever Acetaminophen/Codeine Phosphate (Acetaminophen/Codeine 300-30 Mg Tab) 2 tab PO Q4H PRN PRN Reason: Chest Pain Last Admin: 12/05/20 08:28 Dose: 2 tab Documented by: Acetylcysteine (Acetylcysteine 20% 200 Mg/Ml 4 Ml Nebulizer Soln Sdv) 800 mg NEB QIDRT PRN PRN Reason: Shortness of Breath Last Admin: 12/04/20 08:30 Dose: 800 mg Documented by: Adenosine (Adenosine 6 Mg/2 Ml Sdv) Confirm Administered Dose 6 mg .ROUTE .STK- MED ONE Stop: 12/05/20 12:19 Last Admin: 12/05/20 12:20 Dose: 6 mg Documented by: Adenosine (Adenosine 12 Mg/4 Ml Sdv) Confirm Administered Dose 12 mg .ROUTE .STK-MED ONE Stop: 12/05/20 12:19 Last Admin: 12/05/20 12:30 Dose: 12 mg Documented by: Adenosine (Adenosine 6 Mg/2 Ml Sdv) Confirm Administered Dose 6 mg .ROUTE .STK- MED ONE Stop: 12/05/20 15:14 Last Admin: 12/05/20 15:15 Dose: 6 mg Documented by: Adenosine (Adenosine 12 Mg/4 Ml Sdv) 12 mg IVPUSH NOW ONE Stop: 12/05/20 16:54 Last Admin: 12/05/20 18:50 Dose: Not Given Documented by: Adenosine (Adenosine 12 Mg/4 Ml Sdv) Confirm Administered Dose 12 mg .ROUTE .STK-MED ONE Stop: 12/05/20 16:57 Last Admin: 12/05/20 18:50 Dose: Not Given Documented by: Albuterol (Albuterol 6.7 Gm Inhaler) 0 gm INH Q2H PRN PRN Reason: Shortness of Breath Last Admin: 12/03/20 06:07 Dose: 2 inhalation Documented by: Albuterol/Ipratropium (Albuterol/Ipratropium 3.0-0.5 Mg/3 Ml Neb Soln) 3 ml NEB Q4H PRN PRN Reason: Shortness Of Breath/wheezing Last Admin: 12/05/20 07:54 Dose: 3 ml Documented by: Benzonatate (Benzonatate 100 Mg Cap) 200 mg PO Q8H PRN PRN Reason: Cough Last Admin: 12/01/20 20:43 Dose: 200 mg Documented by: Dexamethasone (Dexamethasone 4 Mg Tab) 6 mg PO DAILY [facility] Stop: 12/02/20 09:01 Last Admin: 12/02/20 09:01 Dose: 6 mg Documented by: Enoxaparin Sodium (Enoxaparin 40 Mg/0.4 Ml Syringe) 40 mg SUBCUT DAILY [facility] Enoxaparin Sodium (Enoxaparin 80 Mg/0.8 Ml Syringe) 80 mg SUBCUT Q12H [facility] Last Admin: 12/05/20 08:29 Dose: 80 mg Documented by: Famotidine (Famotidine 20 Mg Tab) 20 mg PO BID [facility] Last Admin: 12/05/20 08:28 Dose: 20 mg Documented by: Fentanyl (Fentanyl 100 Mcg/2 Ml Sdv) 100 mcg IV ONETIME ONE Stop: 12/05/20 13:31 Last Admin: 12/05/20 13:23 Dose: 100 mcg Documented by: Fentanyl (Fentanyl 100 Mcg/2 Ml Sdv) Confirm Administered Dose 100 mcg .ROUTE .STK-MED ONE Stop: 12/05/20 13:23 Last Admin: 12/05/20 15:01 Dose: Not Given Documented by: Furosemide (Furosemide 20 Mg/2 Ml Vial) 20 mg IVPUSH NOW ONE Stop: 12/01/20 10:10 Last Admin: 12/01/20 11:11 Dose: 20 mg Documented by: Furosemide (Furosemide 20 Mg/2 Ml Vial) 20 mg IVPUSH NOW ONE Stop: 12/03/20 13:31 Last Admin: 12/03/20 14:01 Dose: 20 mg Documented by: Furosemide (Furosemide 20 Mg/2 Ml Vial) 20 mg IVPUSH NOW ONE Stop: 12/05/20 14:24 Last Admin: 12/05/20 14:30 Dose: 20 mg Documented by: Furosemide (Furosemide 20 Mg/2 Ml Vial) Confirm Administered Dose 20 mg .ROUTE .STK-MED ONE Stop: 12/05/20 14:25 Last Admin: 12/05/20 14:31 Dose: Not Given Documented by: Guaifenesin (Guaifenesin 600 Mg Tab.Er) 600 mg PO TID [facility] Last Admin: 12/05/20 17:11 Dose: Not Given Documented by: Hydroxyzine HCl (Hydroxyzine Hcl 50 Mg Tab) 50 mg PO Q8H PRN PRN Reason: Anxiety Last Admin: 12/02/20 07:41 Dose: 50 mg Documented by: Hydroxyzine HCl (Hydroxyzine Hcl 25 Mg Tab) 25 mg PO Q6H PRN PRN Reason: Anxiety Last Admin: 12/05/20 12:08 Dose: 25 mg Documented by: Lactated Ringer's (Ringers, Lactated) 500 mls @ 250 mls/hr IV .BOLUS ONE Stop: 11/28/20 20:35 Last Admin: 11/28/20 18:45 Dose: 250 mls/hr Documented by: Sodium Chloride (Normal Saline) 100 mls @ 60 mls/min IV ASDIRECTED [facility] Last Admin: 11/28/20 20:03 Dose: 60 mls/min Documented by: Piperacillin Sod/Tazobactam (Sod 4.5 gm/ Sodium Chloride) 100 mls @ 200 mls/hr IV ONETIME ONE Stop: 11/28/20 21:41 Last Admin: 11/28/20 21:43 Dose: 200 mls/hr Documented by: Lactated Ringer's (Ringers, Lactated) 1,000 mls @ 125 mls/hr IV ASDIRECTED [facility] Last Admin: 11/28/20 21:52 Dose: 125 mls/hr Documented by: Piperacillin Sod/Tazobactam (Sod 4.5 gm/ Sodium Chloride) 100 mls @ 25 mls/hr IV Q8HR [facility] Last Admin: 12/02/20 14:00 Dose: Not Given Documented by: Tocilizumab 200 mg/Tocilizumab 400 mg/ Sodium Chloride 100 mls @ 100 mls/hr IV ONETIME ONE Stop: 11/29/20 09:59 Last Admin: 11/29/20 08:42 Dose: 100 mls/hr Documented by: Albumin Human 12.5 gm/ Premix 50 mls @ 50 mls/hr IV ONETIME ONE Stop: 12/01/20 11:14 Last Admin: 12/01/20 10:43 Dose: 50 mls/hr Documented by: Piperacillin Sod/Tazobactam (Sod 4.5 gm/ Sodium Chloride) 100 mls @ 25 mls/hr IV Q8H [facility] Stop: 12/05/20 18:01 Last Admin: 12/05/20 18:52 Dose: Not Given Documented by: Fentanyl 2,500 mcg/ Sodium (Chloride) 250 mls @ 10 mls/hr IV TITRATE DADA; Prot ocol Last Admin: 12/05/20 13:45 Dose: 10 ml/hr, 10 mls/hr Documented by: Midazolam HCl 100 mg/ Sodium (Chloride) 100 mls @ 4 mls/hr IV TITRATE DADA; Protocol Last Admin: 12/05/20 14:02 Dose: 4 mls/hr, 4 mls/hr Documented by: Norepinephrine Bitartrate 4 mg (/ Dextrose/Water) 250 mls @ 7.5 mls/hr IV TITRATE DADA; Protocol Last Titration: 12/05/20 16:43 Dose: 8 mcg/min, 30 mls/hr Documented by: Sodium Chloride (Normal Saline) 1,000 mls @ 100 mls/hr IV ASDIRECTED [facility]ADA Sodium Chloride (Normal Saline) Confirm Administered Dose 500 mls @ as directed .ROUTE .[facility] ONE Stop: 12/05/20 14:46 Last Admin: 12/05/20 14:00 Dose: 100 mls/hr Documented by: Propofol (Diprivan 100 Ml) Confirm Administered Dose 100 mls @ as directed .ROUTE .[facility] ONE Stop: 12/05/20 14:48 Last Admin: 12/05/20 18:51 Dose: Not Given Documented by: Propofol (Diprivan 100 Ml) 100 mls @ 2.349 mls/hr IV TITRATE DADA; Protocol Last Titration: 12/05/20 15:17 Dose: 0 mcg/kg/min, 0 mls/hr Documented by: dexmedeTOMIDine in dextrose 5% (Dexmedetomidine In D5w 400 Mcg/100 Ml) 100 mls @ 3.915 mls/hr IV TITRATE DADA; Protocol Last Admin: 12/05/20 15:29 Dose: 0.2 mcg/kg/hr, 3.915 mls/hr Documented by: Vasopressin 100 units/ Sodium (Chloride) 100 mls @ 0.6 mls/hr IV TITRATE DADA; Protocol Last Titration: 12/05/20 17:35 Dose: 0.04 units/min, 2.4 mls/hr Documented by: Iopamidol (Iopamidol 755 Mg/Ml 100 Ml Bottle) 100 ml IVPUSH ONETIME ONE Stop: 11/28/20 20:02 Last Admin: 11/28/20 20:02 Dose: 100 ml Documented by: Loratadine (Loratadine 10 Mg Tab) 10 mg PO DAILY [facility] Last Admin: 12/05/20 08:28 Dose: 10 mg Documented by: Lorazepam (Lorazepam 1 Mg Tab) 1 mg PO ONETIME ONE Stop: 11/28/20 16:41 Last Admin: 11/28/20 17:10 Dose: 1 mg Documented by: Lorazepam (Lorazepam 1 Mg Tab) 1 mg PO Q4H PRN PRN Reason: Anxiety Last Admin: 11/28/20 21:55 Dose: 1 mg Documented by: Lorazepam (Lorazepam 2 Mg/Ml Sdv) 1 mg IVPUSH Q2H PRN PRN Reason: Anxiety Last Admin: 12/03/20 19:36 Dose: 1 mg Documented by: Midazolam HCl (Midazolam 1 Mg/Ml 2 Ml Sdv) Confirm Administered Dose 2 mg .ROUTE .STK-MED ONE Stop: 12/05/20 12:31 Last Admin: 12/05/20 12:34 Dose: 2 mg Documented by: Midazolam HCl (Midazolam 1 Mg/Ml 2 Ml Sdv) 2 mg IVPUSH ONETIME ONE Stop: 12/05/20 12:44 Last Admin: 12/05/20 13:13 Dose: 2 mg Documented by: Ondansetron HCl (Ondansetron 4 Mg/2 Ml Sdv) 4 mg IV Q6H PRN PRN Reason: Nausea/Vomiting Oxymetazoline HCl (Oxymetazoline 0.05% Nasal [place] 30 Ml Bottle) 0 ml BREANNA Q12H PRN PRN Reason: Rhinitis Last Admin: 12/03/20 15:44 Dose: 2 spray Documented by: Pantoprazole Sodium (Pantoprazole 40 Mg Tab.Cr) 40 mg PO DAILY [facility] Piperacillin Sod/Tazobactam Sod (Piperacillin/Tazobactam 4.5 Gm Advvial) Confirm Administered Dose 4.5 gm .ROUTE .STK-MED ONE Stop: 12/03/20 08:37 Last Admin: 12/03/20 08:47 Dose: Not Given Documented by: Polyethylene Glycol (Polyethylene Glycol 3350 Powder 17 Gm Packet) 17 gm PO DAILY PRN PRN Reason: Constipation Propofol (Propofol 200 Mg/20 Ml Sdv) 10 mg IVPUSH ONETIME ONE Stop: 12/05/20 12:44 Last Admin: 12/05/20 15:06 Dose: Not Given Documented by: Propofol (Propofol 200 Mg/20 Ml Sdv) 100 mg IVPUSH ONETIME ONE Stop: 12/05/20 15:08 Last Admin: 12/05/20 18:51 Dose: Not Given Documented by: Rocuronium [place] (Rocuronium 50 Mg/5 Ml Vial) 50 mg IVPUSH ONETIME ONE Stop: 12/05/20 15:17 Last Admin: 12/05/20 15:16 Dose: 50 mg Documented by: Succinylcholine Chloride (Succinylcholine 200 Mg/10 Ml Mdv) 120 mg .XX ONETIME ONE Stop: 12/05/20 12:44 Last Admin: 12/05/20 12:43 Dose: 6 ml Documented by:
[2020-12-06 08:41] VITALS: BP 76/47; PULSE 48
[2020-12-06] MEDS ORDERED: Pantoprazole 40 MG Tab.CR PO SCH (09:00)
== END 2020-12-05 19:44 | disposition expired | DRG 137 ==
LOC: JD.ICU 16:12
PROVIDERS: ADMIT Family Medicine; ATTEND Family Medicine
PROC: 8E0ZXY6 Isolation (ICD-10-PCS; 2020-11-28)
PROC: 5A09457 Assistance with Respiratory Ventilation, 24-96 Consecutive Hours, Continuous Positive Airway Pressure (ICD-10-PCS; 2020-11-28)
PROC: XW033H5 Introduction of Tocilizumab into Peripheral Vein, Percutaneous Approach, New Technology Group 5 (ICD-10-PCS; 2020-11-29)
PROC: 3E0DX3Z Introduction of Anti-inflammatory into Mouth and Pharynx, External Approach (ICD-10-PCS; 2020-11-29)
PROC: 5A0945A Assistance with Respiratory Ventilation, 24-96 Consecutive Hours, High Flow/Velocity Cannula (ICD-10-PCS; 2020-11-30)
PROC: 0BH17EZ Insertion of Endotracheal Airway into Trachea, Via Natural or Artificial Opening (ICD-10-PCS; principal; 2020-12-05)
PROC: 5A1935Z Respiratory Ventilation, Less than 24 Consecutive Hours (ICD-10-PCS; 2020-12-05)
PROC: 3E033XZ Introduction of Vasopressor into Peripheral Vein, Percutaneous Approach (ICD-10-PCS; 2020-12-05)
PROC: 3E0333Z Introduction of Anti-inflammatory into Peripheral Vein, Percutaneous Approach (ICD-10-PCS; 2020-12-05)
DX: U07.1 COVID-19 (principal); J12.82 Pneumonia due to coronavirus disease 2019; J96.01 Acute respiratory failure with hypoxia; E43 Unspecified severe protein-calorie malnutrition; I26.93 Single subsegmental thrombotic pulmonary embolism without acute cor pulmonale; J90 Pleural effusion, not elsewhere classified; I47.1 Supraventricular tachycardia; E87.1 Hypo-osmolality and hyponatremia; J45.909 Unspecified asthma, uncomplicated; E87.2 Acidosis; Z87.891 Personal history of nicotine dependence; Z51.5 Encounter for palliative care; Z68.25 Body mass index [BMI] 25.0-25.9, adult
CPT/HCPCS: 31500; 36415; 36600; 71045; 71045-26; 71275; 71275-26; 80053; 82728; 82803; 83605; 83735; 83880; 84100; 84145; 85007; 85025; 85027; 85379; 85610; 85730; 86140; 87040; 94002; 94640; 94660; 99140; A9270-GY; J0153; J1650; J1940; J2060; J2250; J2543; J2704; J3010; J3490; J7040; J7050; J7060; J7120; J7620-GY; J8540; M0249; M0250; P9047; Q0249; Q9967